=== PATIENT | male | born 1945 | race Caucasian/White ===

== ENCOUNTER → 2018-01-13 10:21 | Outpatient (CLI) | payer MEDICARE, SELFPAY ==
[2018-01-13 11:08] LABS: Add Manual Diff / Slide Review NO; Basophils Percent Auto 0.8 % (0-2); Eosinophils Percent Auto 3.3 % (2-4); Hematocrit 46.2 % (41-53); Hemoglobin 15.9 g/dL (13.5-17.5); Lymphocytes Percent Auto 20.5 % (25-40); Mean Corpuscular HGB Conc 34.4 % (30-36); Mean Corpuscular Hemoglobin 34.5 PG (26-34); Mean Corpuscular Volume 100.3 fL (80-100); Monocytes Percent Auto 8.8 % (3-14); Neutrophils Absolute Auto 5600 /uL (3000-5900); Neutrophils Percent Auto 66.6 % (50-75); Platelet Count 184 X10^3/uL (150-400); Red Blood Cell Count 4.61 X10^6/uL (4.5-5.9); Red Cell Distribution Width 14.5 % (11.6-14.8); White Blood Cell Count 8.5 X10^3/uL (4.5-11.0)
[2018-01-13 12:23] LABS: Alanine Aminotransferase 28 IU/L (21-72); Albumin 3.9 g/dL (3.5-5.0); Albumin Globulin Ratio 1.3 (1.0-2.8); Alkaline Phosphatase 105 U/L (38-126); Aspartate Aminotransferase 32 IU/L (17-59); Bilirubin Total 0.7 mg/dL (0.2-1.3); Blood Urea Nitrogen 15 mg/dL (9-20); Calcium 9.5 mg/dL (8.4-10.2); Carbon Dioxide 34 mmol/L (22-32); Chloride 95 mmol/L (98-107); Cholesterol 165 mg/dL (140-199); Estimated Glomerular Filt Rate > 60.0 mL/min (>60); Glucose 104 mg/dL (80-110); HDL Cholesterol 70 mg/dL (40-60); HEMOLYSIS < 15 (0-50); LDL Cholesterol Calculated 44 mg/dL (<100); Potassium 4.1 mmol/L (3.4-5.1); Sodium 139 mmol/L (137-145); Total Protein 6.9 g/dL (6.3-8.2); Triglycerides 256 mg/dL (35-150)
[2018-01-13 12:30] LABS: TSH w/ Reflex to FT4 2.72 uIU/mL (0.47-4.68)
== END ==
PROVIDERS: PCP Family Medicine; Visit Provider Family Medicine
DX: I48.91 Unspecified atrial fibrillation (principal); I25.10 Atherosclerotic heart disease of native coronary artery without angina pectoris; Z12.5 Encounter for screening for malignant neoplasm of prostate
CPT/HCPCS: 36415; 80053; 80061; 84443; 85025; G0103

== ENCOUNTER → 2018-11-21 09:16 | Outpatient (CLI) | payer MEDICARE, SELFPAY ==
[2018-11-21 10:08] LABS: Add Manual Diff / Slide Review NO; Basophils Absolute Auto 100 /uL (0-100); Basophils Percent Auto 1.2 % (0-2); Eosinophils Absolute Auto 100 /uL (0-450); Eosinophils Percent Auto 2.1 % (2-4); Hematocrit 42.6 % (41-53); Hemoglobin 14.4 g/dL (13.5-17.5); Lymphocytes Absolute Auto 1300 /uL (1100-4500); Lymphocytes Percent Auto 20.8 % (25-40); Mean Corpuscular HGB Conc 33.9 % (30-36); Mean Corpuscular Hemoglobin 34.8 PG (26-34); Mean Corpuscular Volume 102.6 fL (80-100); Monocytes Absolute Auto 600 /uL (0-900); Monocytes Percent Auto 9.6 % (3-14); Neutrophils Absolute Auto 4000 /uL (1500-7000); Neutrophils Percent Auto 66.3 % (50-75); Platelet Count 155 X10^3/uL (150-400); Red Blood Cell Count 4.15 X10^6/uL (4.5-5.9); Red Cell Distribution Width 14.4 % (11.6-14.8); White Blood Cell Count 6.1 X10^3/uL (4.5-11.0)
[2018-11-21 11:04] LABS: Alanine Aminotransferase 37 IU/L (21-72); Albumin Globulin Ratio 1.6 (1.0-2.8); Alkaline Phosphatase 98 U/L (38-126); Aspartate Aminotransferase 49 IU/L (17-59); Bilirubin Total 0.8 mg/dL (0.2-1.3); Blood Urea Nitrogen 12 mg/dL (9-20); Calcium 9.2 mg/dL (8.4-10.2); Carbon Dioxide 31 mmol/L (22-32); Chloride 96 mmol/L (98-107); Cholesterol 145 mg/dL (140-199); Estimated Glomerular Filt Rate > 60.0 mL/min (>60); Globulin 2.5 g/dL (1.7-4.1); Glucose 97 mg/dL (80-110); HDL Cholesterol 82 mg/dL (40-60); HEMOLYSIS < 15 (0-50); LDL Cholesterol Calculated 20 mg/dL (<100); Potassium 3.7 mmol/L (3.4-5.1); Sodium 137 mmol/L (137-145); Total Protein 6.5 g/dL (6.3-8.2); Triglycerides 216 mg/dL (35-150)
[2018-11-21 11:30] LABS: Thyroid Stimulating Hormone 2.78 uIU/mL (0.47-4.68)
[2018-11-21 11:38] LABS: Prostate Specific Antigen Scrn 0.306 ng/mL (0.1-4.0)
== END ==
PROVIDERS: PCP Family Medicine; Visit Provider Family Medicine
DX: E78.2 Mixed hyperlipidemia (principal); Z12.5 Encounter for screening for malignant neoplasm of prostate; R53.83 Other fatigue; I10 Essential (primary) hypertension
CPT/HCPCS: 36415; 80053; 80061; 84443; 85025; G0103

== ENCOUNTER → 2018-12-17 10:19 | Outpatient (CLI) | payer MEDICARE, SELFPAY ==
--- NOTE | 2018-12-17 10:21 | DI.RAD.S_ITS ---
PROCEDURE: XR CHEST 2V INDICATIONS: cough TECHNIQUE: 2 views of the chest were acquired. COMPARISON: [facility], CT, THORAX WITHOUT CONTRAST, 03/27/2017, 9:26. [facility], CR, CHEST 2 VIEW, 03/26/2017, 9:52. FINDINGS: Surgical changes and devices: There is a cardiac pacemaker in appropriate position. Lungs and pleura: Bibasilar opacities are most likely scars and atelectasis. No pleural effusions or pneumothorax. Mediastinum: Mediastinal contours are normal. Heart size is normal. Bones and chest wall: No suspicious bony abnormalities. Soft tissues appear unremarkable. IMPRESSION: Bibasilar opacities are most likely scars and atelectasis. Dictated by: Emily Castañeda M.D. on 12/17/2018 at 11:04 Approved by: Emily Castañeda M.D. on 12/17/2018 at 11:06
== END ==
PROVIDERS: PCP Family Medicine; Visit Provider Family Medicine
DX: R05 Cough (principal); Z95.0 Presence of cardiac pacemaker
CPT/HCPCS: 71046

== ENCOUNTER → 2019-04-14 16:32 | Outpatient (CLI) | payer MEDICARE, SELFPAY ==
[2019-04-14 17:07] LABS: Add Manual Diff / Slide Review NO; Basophils Absolute Auto 100 /uL (0-100); Basophils Percent Auto 1.1 % (0-2); Eosinophils Absolute Auto 100 /uL (0-450); Eosinophils Percent Auto 1.1 % (2-4); Hematocrit 47.7 % (41-53); Hemoglobin 15.9 g/dL (13.5-17.5); Lymphocytes Absolute Auto 2100 /uL (1100-4500); Lymphocytes Percent Auto 21.5 % (25-40); Mean Corpuscular HGB Conc 33.4 % (30-36); Mean Corpuscular Hemoglobin 34.7 PG (26-34); Mean Corpuscular Volume 103.9 fL (80-100); Monocytes Absolute Auto 1000 /uL (0-900); Monocytes Percent Auto 10.3 % (3-14); Neutrophils Absolute Auto 6300 /uL (1500-7000); Platelet Count 165 X10^3/uL (150-400); Red Blood Cell Count 4.59 X10^6/uL (4.5-5.9); Red Cell Distribution Width 14.9 % (11.6-14.8); White Blood Cell Count 9.6 X10^3/uL (4.5-11.0)
[2019-04-14 18:06] LABS: Alanine Aminotransferase 27 IU/L (21-72); Albumin Globulin Ratio 1.4 (1.0-2.8); Alkaline Phosphatase 103 U/L (38-126); Aspartate Aminotransferase 37 IU/L (17-59); BUN Creatinine Ratio 13.6 (6-22); Bilirubin Total 1.3 mg/dL (0.2-1.3); Blood Urea Nitrogen 15 mg/dL (9-20); Calcium 9.8 mg/dL (8.4-10.2); Carbon Dioxide 34 mmol/L (22-32); Chloride 93 mmol/L (98-107); Estimated Glomerular Filt Rate > 60.0 mL/min (>60); Globulin 2.9 g/dL (1.7-4.1); Glucose 110 mg/dL (80-110); HEMOLYSIS < 15 (0-50); Potassium 4.2 mmol/L (3.4-5.1); Sodium 136 mmol/L (137-145); Total Protein 6.9 g/dL (6.3-8.2)
== END ==
PROVIDERS: PCP Family Medicine; Visit Provider Nurse Practitioner Family
DX: R10.9 Unspecified abdominal pain (principal)
CPT/HCPCS: 36415; 80053; 85025

== ENCOUNTER → 2019-04-20 13:04 | Outpatient (CLI) | payer MEDICARE, SELFPAY ==
--- NOTE | 2019-04-20 13:07 | DI.US.S_ITS ---
PROCEDURE: US ABDOMEN COMPLETE INDICATIONS: LT FLANK PAIN, LOW ABD PAIN TECHNIQUE: Real-time scanning was performed of the abdominal and retroperitoneal organs, with image documentation. COMPARISON: CT thorax 03/27/2017. FINDINGS: Liver: Normal in size. Increased in echogenicity. Decreased sonographic penetration. Gallbladder: Nondistended. No gallbladder wall thickening. No sludge or stones seen. No pericolic cystic fluid. Negative sonographic Ramos's sign. Biliary ducts: Not well-seen. CBD measures 4 mm. Pancreas: Not well-seen. Spleen: Spleen is normal in size and homogeneous in echotexture. Measures 10.3 cm. Kidneys: Kidneys are normal in size and echotexture. Right kidney measures 11.6 cm long; left kidney measures 10.1 cm long. No hydronephrosis or nephrolithiasis. No solid masses. Simple cyst in the right kidney measuring 5.2 x 4.5 x 3.4 cm. Aorta: Visualized aorta is normal in caliber at less than 3 cm. proximal aorta is not well-seen. Iliacs: Proximal common iliac arteries are normal in caliber at less than 2.5 cm. IVC: Intrahepatic inferior vena cava is patent. Miscellaneous: No free abdominal fluid. No obvious mass in the left flank in the region of pain. IMPRESSION: 1. Hepatic steatosis. 2. No gallstones. 3. No hydronephrosis. 4. No abnormality in the region of pain is identified. Consider CT abdomen and pelvis with IV contrast for further evaluation if clinically indicated. Dictated by: Sagra Montoya M.D. on 04/20/2019 at 14:46 Approved by: Sagar Montoya M.D. on 04/20/2019 at 14:50
== END ==
PROVIDERS: PCP Family Medicine; Visit Provider Nurse Practitioner Family
DX: R10.30 Lower abdominal pain, unspecified (principal); N28.1 Cyst of kidney, acquired; K76.0 Fatty (change of) liver, not elsewhere classified
CPT/HCPCS: 76700

== ENCOUNTER → 2020-02-02 08:07 | Outpatient (CLI) | payer MEDICARE, OTHER, SELFPAY ==
[2020-02-02 09:05] LABS: Add Manual Diff / Slide Review NO; Basophils Absolute Auto 100 /uL (0-100); Basophils Percent Auto 0.9 % (0-2); Eosinophils Absolute Auto 100 /uL (0-450); Eosinophils Percent Auto 2.3 % (2-4); Hematocrit 43.2 % (41-53); Hemoglobin 14.6 g/dL (13.5-17.5); Lymphocytes Absolute Auto 1400 /uL (1100-4500); Lymphocytes Percent Auto 23.1 % (25-40); Mean Corpuscular HGB Conc 33.8 % (30-36); Mean Corpuscular Hemoglobin 34.9 PG (26-34); Mean Corpuscular Volume 103.3 fL (80-100); Monocytes Absolute Auto 600 /uL (0-900); Monocytes Percent Auto 10.7 % (3-14); Neutrophils Absolute Auto 3800 /uL (1500-7000); Platelet Count 146 X10^3/uL (150-400); Red Blood Cell Count 4.19 X10^6/uL (4.5-5.9); Red Cell Distribution Width 14.8 % (11.6-14.8)
[2020-02-02 09:23] LABS: Alanine Aminotransferase 30 IU/L (<50); Albumin Globulin Ratio 1.7 (1.0-2.8); Alkaline Phosphatase 114 U/L (38-126); Aspartate Aminotransferase 46 IU/L (17-59); BUN Creatinine Ratio 13.7 (6-22); Bilirubin Total 0.8 mg/dL (0.2-1.3); Blood Urea Nitrogen 14 mg/dL (9-20); Calcium 9.3 mg/dL (8.4-10.2); Carbon Dioxide 35 mmol/L (22-32); Chloride 98 mmol/L (98-107); Cholesterol 145 mg/dL (140-199); Estimated Glomerular Filt Rate > 60.0 mL/min (>60); Globulin 2.4 g/dL (1.7-4.1); Glucose 115 mg/dL (80-110); HDL Cholesterol 90 mg/dL (40-60); HEMOLYSIS < 15 (0-50); LDL Cholesterol Calculated 7 mg/dL (<100); Potassium 3.6 mmol/L (3.4-5.1); Sodium 136 mmol/L (137-145); Total Protein 6.4 g/dL (6.3-8.2); Triglycerides 242 mg/dL (35-150)
[2020-02-02 09:51] LABS: Prostate Specific Antigen Scrn 0.344 ng/mL (0.1-4.0)
[2020-02-02 09:52] LABS: Thyroid Stimulating Hormone 3.56 uIU/mL (0.47-4.68)
== END ==
PROVIDERS: PCP Family Medicine; Referring Provider Family Medicine; Visit Provider Family Medicine
DX: E78.2 Mixed hyperlipidemia (principal); I25.10 Atherosclerotic heart disease of native coronary artery without angina pectoris; I48.20 Chronic atrial fibrillation, unspecified; Z12.5 Encounter for screening for malignant neoplasm of prostate; Z13.29 Encounter for screening for other suspected endocrine disorder
CPT/HCPCS: 36415; 80053; 80061; 84443; 85025; G0103

== ENCOUNTER 2020-02-15 13:59 | Outpatient (RCR) | payer MEDICARE, OTHER, SELFPAY ==
--- NOTE | 2020-02-15 17:19 | PT.OIE ---
Current Diagnoses Other abnormalities of gait and mobility (02/15/20) Past Medical History (Last Updated 01/29/18 @ 12:27 by Rachel Hi) Atrial fibrillation (Chronic ~2011) Chicken pox (Resolved) Hearing loss (Chronic ~2014) Hypertension (Chronic ~1997) Measles (Resolved) Mumps (Resolved) Pacemaker (Chronic ~2011) Peripheral neuropathy (Chronic ~2011) Peripheral vascular disease (Chronic ~2011) Psoriasis (Chronic ~1989) Skin cancer (Chronic ~2012) Vision disorder (Chronic) Past Surgical History (Last Updated 01/29/18 @ 12:27 by Rachel Hi) Anesthesia (Resolved) History of heart artery stent (Resolved ~2014) Presence of cardiac pacemaker (~2011) Status post insertion of iliac artery stent (Resolved ~2012) Status post rotator cuff repair (~2012) Status post rotator cuff repair (~2013) Surgical procedure planned (Resolved ~2011) Surgical procedure planned (Resolved ~2013) Visit Care Team Role Provider Type Mario Patel MD Attending Provider Physician Primary Care Provider Referring Provider Specialty: [facility] Address: [address] [place] [address] Email: [email or web address] Physical Therapy Initial Evaluation PT-OP-A Visit Information Start: 02/15/20 16:42 Freq: Status: Active Protocol: Document 02/15/20 14:35 HH (Rec: 02/15/20 17:19 [email or web address]) Out-Patient Physical Therapy Visit Information Visit Information Visit Type Initial Evaluation Visit Note Pt will have watchman procedure for his A-fib on . Will follow up with his post op protocol Visit Start Time 14:35 Visit Stop Time 15:15 Total Visit Minutes 40 Visit Number 07/26 Number of METAL GRINDER Visits 0 Evaluation Information Evaluation Date 02/15/20 Precautions Precautions atrial fibrillation compromises stamina He has peripheral artery disease apparently has stent placed there he does have circulation problems PT-OP-B Current Condition Start: 02/15/20 16:42 Freq: Status: Active Protocol: Document 02/15/20 14:35 HH (Rec: 02/15/20 17:19 [email or web address]) Current Condition History of Current Condition Onset Date >10 years ago Current Complaints poor balance, poor activity tolerance History of Current Condition This is a 74yo male here for poor balance and activity tolerance primarily due to his long hx of peripheral artery disease and CAD. He has peripheral artery disease apparently has stent placed there to improve circulation in 2011. Pt reports he was told that both feet have lost 90-95% of sensation which significantly compromises his balance. Pt currently has fear of falling who is primarily relying on his vision to assist his balance. He only had 1 fall within the past year but he stated that he is not confident. Pt also has limited endurance who can only last 1/2 mile of walking with intermittent resting breaks. He likes to walk 1/3 of the [employer] 3 times a week and would like to be able to do more. Besides, he does have difficulty walking uneven surface and stair climbing. Pt does drink 3-4 times a day and 1 cup of coffee. Future Testing and Treatments Planned Pt will have watchman procedure for his A-fib on . Treatment Goals Patient/Caregiver Goals 1. to improve his overall balance 2. to be able to walk a mile Personal Factors Other Personal Factors That May Effect He apparently diagnosed Therapy/Recovery sarcoidosis does not seem to be affecting anyway saw pulmonology specialist in [place] he is on no treatment and apparently it is getting better as oxygen content appeared has improved to normal. chronic peripheral neuropathy and CAD PT-OP-C Subjective Start: 02/15/20 16:42 Freq: Status: Active Protocol: Document 02/15/20 14:35 HH (Rec: 02/15/20 17:19 [email or web address]) Patient Questionnaires ABC- Activity Specific Balance Confidence Scale ABC Score 81.875 ABC Functional Impairment 1 to <20% Impaired (Score 81- 99) Dizziness Handicap Inventory DHI Score 27 DHI Functional Impairment 20 to 39% Impaired (Score 20- 39) PT-OP-D Balance Start: 02/15/20 16:42 Freq: Status: Active Protocol: Document 02/15/20 14:35 HH (Rec: 02/15/20 17:19 [email or web address]) Balance Tests Webster Balance Test Webster Balance Test Score 43 Webster Impairment Rating 20 to 39% Impaired (Score 34- 44) PT-OP-E Functional Tests Start: 02/15/20 16:42 Freq: Status: Active Protocol: Document 02/15/20 14:35 HH (Rec: 02/15/20 17:19 [email or web address]) Functional Tests Dynamic Gait Index (DGI) Score 19 DGI Impairment Rating 20 to <40% Impaired (Score 15- 19) PT-OP-F Manual Assessment Start: 02/15/20 16:42 Freq: Status: Active Protocol: Document 02/15/20 14:35 HH (Rec: 02/15/20 17:19 [email or web address]) Manual Assessments Soft Tissue Assessment Soft Tissue Mobility Assessment reports of muscle pain while PT squeezing R calf. PT-OP-G Mobility & Gait Start: 02/15/20 16:42 Freq: Status: Active Protocol: Document 02/15/20 14:35 HH (Rec: 02/15/20 17:19 [email or web address]) OP Gait Assessment Gait Deviations General Gait Pattern Decreased Stride Length, Decreased Feet Clearance, Flexed Trunk,Wide Based Gait Comments Gait Comments pt constantly looks down to the floor during gait. Stair Climbing Evaluation Devices Stair Climbing Assistive Devices Left Railing,Right Railing Technique/Endurance Stair Climbing Direction Ascend and Descend Stair Climbing Technique Step Over Step PT-OP-H Neuro Start: 02/15/20 16:42 Freq: Status: Active Protocol: Document 02/15/20 14:35 HH (Rec: 02/15/20 17:19 [email or web address]) Sensation Evaluation Gross Sensation Gross Sensation Left UE Impaired,Right UE Impaired Sensation Description Numbness,Pins & [place] Location Details Right Foot Light Touch Absent Sharp/Dull Absent Deep Pressure Impaired Proprioception (Position) Intact/Normal Kinesthesia (Movement) Intact/Normal Left Foot Light Touch Absent Sharp/Dull Absent Deep Pressure Impaired Proprioception (Position) Intact/Normal Kinesthesia (Movement) Intact/Normal Comments Summary Comments pt has minimal to none sensation to LT and sharp/dull below his ankle joint line proprioception appears to be intact/ minimally affected bilaterally Deep Tendon Reflex & Clonus Assessment Deep Tendon Reflex Bilateral Achilles Deep Tendon Reflex 2+ Normal Bilateral Patellar Deep Tendon Reflex 1+ Diminished PT-OP-M Strength Start: 02/15/20 16:42 Freq: Status: Active Protocol: Document 02/15/20 14:35 HH (Rec: 02/15/20 17:19 [email or web address]) Hip Strength Hip Manual Muscle Testing Right Flexion (L2) 4+ Good+ Extension (S1) 4+ Good+ Abduction 4+ Good+ Adduction 4+ Good+ Left Flexion (L2) 4+ Good+ Extension (S1) 4+ Good+ Abduction 4+ Good+ Adduction 4+ Good+ Knee Strength Knee Manual Muscle Testing Left Flexion (S2) 4 Good Extension (L3) 4 Good Right Flexion (S2) 4 Good Extension (L3) 4 Good Ankle/Foot Strength Ankle and Foot Manual Muscle Testing Right Dorsiflexion (L4) 4- Good- Plantarflexion (S1) 4- Good- Left Dorsiflexion (L4) 4- Good- Plantarflexion (S1) 4- Good- PT-OP-T Assessment and Plan Start: 02/15/20 16:42 Freq: Status: Active Protocol: Document 02/15/20 14:35 (Rec: 02/15/20 17:19 [email or web address]) Physical Therapy Assessment Rehab Potential Rehabilitation Potential Good Evaluation Complexity Number of Personal Factors/Comorbidities 3 or More Number of Body Systems Impaired 4 or More Clinical Presentation at Evaluation Stable Impairments Impairments Activity Tolerance,Balance, Functional Activities, Functional Mobility,Gait,Pain, Sensation,Soft Tissue Mobility ,Strength Other Concerns Fall Risk yes Barriers to Rehabilitation managed sarcoidosis . chronic peripheral neuropathy and CAD upcoming watchmen procedure current alcohol user (3-4 drinks a day) Goals SLS Impairment pt cannot perform SLS Short Term Goal (STG) pt will be able to reach 3 seconds or longer for SLS to improve his unilateral leg strength and balance for stair climbing and walking on uneven surface ground STG Duration 5 weeks Retirement Goal (LTG) pt will be able to reach 5 seconds or longer for SLS to improve his unilateral leg strength and balance for stair climbing and walking on uneven surface ground LTG Duration 10 weeks activity tolerance Impairment unable to yury 1/2 mile without rest break Short Term Goal (STG) pt will be able to tolerate 0. 75 mile with small intermittent breaks to improve his community ambulation endurance. STG Duration 5 weeks Retirement Goal (LTG) pt will be able to tolerate 1 mile with small intermittent breaks to improve his community ambulation endurance . LTG Duration 10 weeks WEBSTER Impairment pt scores 43/56 for WEBSTER Retirement Goal (LTG) Pt will score 50 or above for WEBSTER to improve his overall balance for functional activities. LTG Duration 10 weeks Assessment Summary Assessment This is a moderate complexity evaluation for this 74yo male here for balance and endurance training. Pt has complicated hx of CAD and PAD who has had stent placed for both dx. Upon assessment, pt has significant sensation loss to LT, sharp/ dull to both feet but proprioception remain mostly intact. Through WEBSTER and DGI assessment, this PT noticed pt has difficulty in balance primarily on narrow STEFFEN, obstacle negotiation and single leg balance who heavily relies on vision to navigate himself. Pt also has poor endurance as he stated so this pt will definitely benefit from skilled therapy to address these aforementioned impairments to improve his confidence of balance, B LE strength, and overall activity tolerance. Pt is going to have watchman procedure on who might have a post op protocol for PT which possibly require a longer POC. Physical Therapy Plan Frequency and Duration Frequency of Treatment 2x/Week Duration of Treatment 10 weeks Plan of Care Start Date 02/15/20 Plan of Care End Date 04/30/20 Therapeutic Interventions Therapeutic Interventions Balance Training,Gait Training ,Home Exercise Program,Joint Mobilizations,Manual Therapy, Neuromuscular Re-education, Patient/Caregiver Education, Self-Care/Home Management, Sensory Integration,Soft Tissue Mobilization,Taping, Therapeutic Activities, Therapeutic Exercises Modalities Cold Pack/Ice Massage,Electric Stimulation,Hot Packs, Infrared Therapy,Ultrasound Next Visit Focus/Plan Next Note Type Treatment Note Next Visit Plan assess 6MWT practice ankle strategy NBOS EO/EC balance board calf raises, ankle board step over obstacle
--- NOTE | 2020-02-15 17:20 | PT.OPPOC ---
Physical, Occupational & Speech Therapy At [facility] Current Diagnoses Other abnormalities of gait and mobility (02/15/20) Visit Care Team Role Provider Type Mario Patel MD Attending Provider Physician Primary Care Provider Referring Provider Specialty: Family Practice Address: [address] [place] [address], [id number] Email: [email or web address] Plan Of Care PT-OP-T Assessment and Plan Start: 02/15/20 16:42 Freq: Status: Active Protocol: Document 02/15/20 14:35 HH (Rec: 02/15/20 17:19 HH [email or web address]) Physical Therapy Assessment Rehab Potential Rehabilitation Potential Good Evaluation Complexity Number of Personal Factors/Comorbidities 3 or More Number of Body Systems Impaired 4 or More Clinical Presentation at Evaluation Stable Impairments Impairments Activity Tolerance,Balance, Functional Activities, Functional Mobility,Gait,Pain, Sensation,Soft Tissue Mobility ,Strength Other Concerns Fall Risk yes Barriers to Rehabilitation managed sarcoidosis . chronic peripheral neuropathy and CAD upcoming watchmen procedure current alcohol user (3-4 drinks a day) Goals SLS Impairment pt cannot perform SLS Short Term Goal (STG) pt will be able to reach 3 seconds or longer for SLS to improve his unilateral leg strength and balance for stair climbing and walking on uneven surface ground STG Duration 5 weeks Steam Shovel Operator Goal (LTG) pt will be able to reach 5 seconds or longer for SLS to improve his unilateral leg strength and balance for stair climbing and walking on uneven surface ground LTG Duration 10 weeks activity tolerance Impairment unable to yury 1/2 mile without rest break Short Term Goal (STG) pt will be able to tolerate 0. 75 mile with small intermittent breaks to improve his community ambulation endurance. STG Duration 5 weeks Group Home Goal (LTG) pt will be able to tolerate 1 mile with small intermittent breaks to improve his community ambulation endurance . LTG Duration 10 weeks WEBSTER Impairment pt scores 43/56 for WEBSTER Group Home Goal (LTG) Pt will score 50 or above for WEBSTER to improve his overall balance for functional activities. LTG Duration 10 weeks Assessment Summary Assessment This is a moderate complexity evaluation for this 74yo male here for balance and endurance training. Pt has complicated hx of CAD and PAD who has had stent placed for both dx. Upon assessment, pt has significant sensation loss to LT, sharp/ dull to both feet but proprioception remain mostly intact. Through WEBSTER and DGI assessment, this PT noticed pt has difficulty in balance primarily on narrow STEFFEN, obstacle negotiation and single leg balance who heavily relies on vision to navigate himself. Pt also has poor endurance as he stated so this pt will definitely benefit from skilled therapy to address these aforementioned impairments to improve his confidence of balance, B LE strength, and overall activity tolerance. Pt is going to have watchman procedure on who might have a post op protocol for PT which possibly require a longer POC. Physical Therapy Plan Frequency and Duration Frequency of Treatment 2x/Week Duration of Treatment 10 weeks Plan of Care Start Date 02/15/20 Plan of Care End Date 04/30/20 Therapeutic Interventions Therapeutic Interventions Balance Training,Gait Training ,Home Exercise Program,Joint Mobilizations,Manual Therapy, Neuromuscular Re-education, Patient/Caregiver Education, Self-Care/Home Management, Sensory Integration,Soft Tissue Mobilization,Taping, Therapeutic Activities, Therapeutic Exercises Modalities Cold Pack/Ice Massage,Electric Stimulation,Hot Packs, Infrared Therapy,Ultrasound Next Visit Focus/Plan Next Note Type Treatment Note Next Visit Plan assess 6MWT practice ankle strategy NBOS EO/EC balance board calf raises, ankle board step over obstacle Plan of Care Dates Plan of Care Start Date 02/15/20 Plan of Care End Date 04/30/20 Electronically Signed by: Maria De Jesus Jean Baptiste PT 02/15/20 1924 Please Sign and Return: I have reviewed this Plan of Care and certify that the skilled therapy services above are required to meet the patient?s needs. Physician Signature Date Printed Name and Credentials Clinical Instructor Signature Printed Name and Credentials
--- NOTE | 2020-07-11 16:30 | PT.OPDS ---
Current Diagnoses Other abnormalities of gait and mobility (02/15/20) Visit Care Team Role Provider Type Mario Patel MD Attending Provider Physician Primary Care Provider Referring Provider Specialty: Family Practice Address: [address] [place] [address], [id number] Email: [email or web address] Visit Number Visit Number 07/[id number] Discharge Summary PT-OP-B Current Condition Start: 02/15/20 16:42 Freq: Status: Active Protocol: Document 02/15/20 14:35 HH (Rec: 02/15/20 17:19 HH [email or web address]) Current Condition History of Current Condition Onset Date >10 years ago Current Complaints poor balance, poor activity tolerance History of Current Condition This is a 74yo male here for poor balance and activity tolerance primarily due to his long hx of peripheral artery disease and CAD. He has peripheral artery disease apparently has stent placed there to improve circulation in 2011. Pt reports he was told that both feet have lost 90-95% of sensation which significantly compromises his balance. Pt currently has fear of falling who is primarily relying on his vision to assist his balance. He only had 1 fall within the past year but he stated that he is not confident. Pt also has limited endurance who can only last 1/2 mile of walking with intermittent resting breaks. He likes to walk 1/3 [place] 3 times a week and would like to be able to do more. Besides, he does have difficulty walking uneven surface and stair climbing. Pt does drink 3-4 times a day and 1 cup of coffee. Future Testing and Treatments Planned Pt will have watchman procedure for his A-fib on . Treatment Goals Patient/Caregiver Goals 1. to improve his overall balance 2. to be able to walk a mile Personal Factors Other Personal Factors That May Effect He apparently diagnosed Therapy/Recovery sarcoidosis does not seem to be affecting anyway saw pulmonology specialist in [place] he is on no treatment and apparently it is getting better as oxygen content appeared has improved to normal. chronic peripheral neuropathy and CAD PT-OP-C Subjective Start: 02/15/20 16:42 Freq: Status: Active Protocol: Document 02/15/20 14:35 HH (Rec: 02/15/20 17:19 HH [email or web address]) Patient Questionnaires ABC- Activity Specific Balance Confidence Scale ABC Score 81.875 ABC Functional Impairment 1 to <20% Impaired (Score 81- 99) Dizziness Handicap Inventory DHI Score 27 DHI Functional Impairment 20 to 39% Impaired (Score 20- 39) PT-OP-D Balance Start: 02/15/20 16:42 Freq: Status: Active Protocol: Document 02/15/20 14:35 (Rec: 02/15/20 17:19 [email or web address]) Balance Tests Saavedra Balance Test Saavedra Balance Test Score 43 Saavedra Impairment Rating 20 to 39% Impaired (Score 34- 44) PT-OP-E Functional Tests Start: 02/15/20 16:42 Freq: Status: Active Protocol: Document 02/15/20 14:35 (Rec: 02/15/20 17:19 [email or web address]) Functional Tests Dynamic Gait Index (DGI) Score 19 DGI Impairment Rating 20 to <40% Impaired (Score 15- 19) PT-OP-F Manual Assessment Start: 02/15/20 16:42 Freq: Status: Active Protocol: Document 02/15/20 14:35 (Rec: 02/15/20 17:19 [email or web address]) Manual Assessments Soft Tissue Assessment Soft Tissue Mobility Assessment reports of muscle pain while PT squeezing R calf. PT-OP-G Mobility & Gait Start: 02/15/20 16:42 Freq: Status: Active Protocol: Document 02/15/20 14:35 (Rec: 02/15/20 17:19 [email or web address]) OP Gait Assessment Gait Deviations General Gait Pattern Decreased Stride Length, Decreased Feet Clearance, Flexed Trunk,Wide Based Gait Comments Gait Comments pt constantly looks down to the floor during gait. Stair Climbing Evaluation Devices Stair Climbing Assistive Devices Left Railing,Right Railing Technique/Endurance Stair Climbing Direction Ascend and Descend Stair Climbing Technique Step Over Step PT-OP-H Neuro Start: 02/15/20 16:42 Freq: Status: Active Protocol: Document 02/15/20 14:35 (Rec: 02/15/20 17:19 [email or web address]) Sensation Evaluation Gross Sensation Gross Sensation Left UE Impaired,Right UE Impaired Sensation Description Numbness,Pins & Rhodes Location Details Right Foot Light Touch Absent Sharp/Dull Absent Deep Pressure Impaired Proprioception (Position) Intact/Normal Kinesthesia (Movement) Intact/Normal Left Foot Light Touch Absent Sharp/Dull Absent Deep Pressure Impaired Proprioception (Position) Intact/Normal Kinesthesia (Movement) Intact/Normal Comments Summary Comments pt has minimal to none sensation to LT and sharp/dull below his ankle joint line proprioception appears to be intact/ minimally affected bilaterally Deep Tendon Reflex & Clonus Assessment Deep Tendon Reflex Bilateral Achilles Deep Tendon Reflex 2+ Normal Bilateral Patellar Deep Tendon Reflex 1+ Diminished PT-OP-M Strength Start: 02/15/20 16:42 Freq: Status: Active Protocol: Document 02/15/20 14:35 HH (Rec: 02/15/20 17:19 HH [email or web address]) Hip Strength Hip Manual Muscle Testing Right Flexion (L2) 4+ Good+ Extension (S1) 4+ Good+ Abduction 4+ Good+ Adduction 4+ Good+ Left Flexion (L2) 4+ Good+ Extension (S1) 4+ Good+ Abduction 4+ Good+ Adduction 4+ Good+ Knee Strength Knee Manual Muscle Testing Left Flexion (S2) 4 Good Extension (L3) 4 Good Right Flexion (S2) 4 Good Extension (L3) 4 Good Ankle/Foot Strength Ankle and Foot Manual Muscle Testing Right Dorsiflexion (L4) 4- Good- Plantarflexion (S1) 4- Good- Left Dorsiflexion (L4) 4- Good- Plantarflexion (S1) 4- Good- PT-OP-T Assessment and Plan Start: 02/15/20 16:42 Freq: Status: Active Protocol: Document 07/11/20 16:30 HH (Rec: 07/11/20 16:30 HH [email or web address]) Physical Therapy Plan Discharge Physical Therapy Discharge Reasons Patient Request Discharge Comments Pt cancelled all his appt after IE d/t medical reason. DC from PT today
== END 2020-07-15 12:20 | disposition home or self-care (01) ==
LOC: PHYS 13:59
PROVIDERS: PCP Family Medicine; Referring Provider Family Medicine; Visit Provider Family Medicine
DX: R26.89 Other abnormalities of gait and mobility (principal)
CPT/HCPCS: 97162

== ENCOUNTER → 2020-02-19 08:31 | Outpatient (CLI) | payer MEDICARE, OTHER, SELFPAY ==
[2020-02-19 09:22] LABS: Prothrombin Time 52.5 SECONDS (10.1-12.7)
[2020-02-19 09:27] LABS: INR 4.6 (0.9-1.3)
== END ==
PROVIDERS: PCP Family Medicine; Referring Provider Specialist; Visit Provider Specialist
DX: I48.91 Unspecified atrial fibrillation (principal)
CPT/HCPCS: 36415; 85610

== ENCOUNTER → 2020-02-25 13:36 | Outpatient (CLI) | payer MEDICARE, OTHER, SELFPAY ==
--- NOTE | 2020-02-25 | DI.ECHO.S_ITS ---
[facility]---------+ [facility] +---------+ : : [address] [place] : : : : [id number] : : : : Phone: [phone]+ Echocardiogram Report + + :Name: ROBERTA BROWN Study Date: 02/25/2020 Height: 70 in : :[facility] Weight: 214 lb : : Gender: Male BSA: 2.1 m2 : :: 1945 Age: 75 yrs BP: 122/81 mmHg: :Reason For Study: AORTIC VALVE DISEASE : :Ordering Physician: Falguni : :Rodrigo Cole Performed By: Sheila Figueroa : :Referring: FALGUNI BINGHAM : + + Interpretation Summary The study quality was technically difficult. The left ventricular ejection fraction is normal. There are no obvious focal wall motion abnormalities noted but poor endocardial definition reduces the sensitivity for the detection of such. The peak aortic velocity is 1.8 m/sec. There is no hemodynamically significant valvular aortic stenosis. Overall no significant change compared to the prior echocardiogram. Procedure: A two-dimensional transthoracic echocardiogram with color flow and Doppler was performed. The study quality was technically difficult. Comparison is made with the echocardiogram of 01/04/2015. The patient was in atrial fibrillation with heart rates between 96-134 bpm during the exam. Left Ventricle: The left ventricle is normal in size. Left ventricular wall thickness is mildly increased. The ejection fraction is estimated to be 55- 60%. The left ventricular ejection fraction is normal. There are no obvious focal wall motion abnormalities noted but poor endocardial definition reduces the sensitivity for the detection of such. Diastolic function could not be accurately assessed due to atrial fibrillation. Right Ventricle: There is a pacemaker lead in the right ventricle. The right ventricle is normal in size and function. Atria: The left atrium is mildly dilated. There is a catheter/pacemaker lead seen in the right atrium. Right atrial size is normal. There is no Doppler evidence for an interatrial shunt. Mitral Valve: The mitral valve leaflets are mildly calcified. There is trace mitral regurgitation. Aortic Valve: The aortic valve is trileaflet. There is mild aortic valve sclerosis. There is mildly reduced leaflet mobility. The aortic valve is mildly calcified. The peak aortic velocity is 1.8 m/sec. There has been no significant change since the previous study. There is no hemodynamically significant valvular aortic stenosis. No aortic regurgitation is present. Tricuspid Valve: The tricuspid valve is not well visualized, but is grossly normal. Pulmonary artery pressures cannot be estimated because of the lack of a measurable TR jet velocity but the IVC suggests a CVP of around 15 mmHg. There is a trace or physiologic amount of tricuspid regurgitation. Pulmonic Valve: The pulmonic valve is not well visualized. There is no pulmonic valvular regurgitation. Great Vessels: The aortic root is normal size. The ascending aorta is mildly enlarged. The IVC is dilated (diameter is greater than 2.1 cm) and it collapses less than 50% with a sniff. This suggests a high right atrial pressure of 15 mm Hg. Pericardium/ Pleura There is no pericardial effusion. There is no pleural effusion. MMode/2D Measurements & Calculations LVIDd: 4.8 cm LVOT diam: 2.4 cm EPSS: 1.1 cm Ao root diam: 3.5 cm IVSd: 1.2 cm asc Aorta Diam: 4.0 cm LVPWd: 1.1 cm Ao Arch Diam (Prox Trans): 3.1 cm LV campuzano. diameter/BSA (cm/m^2): 2.3 LA A2 area: 27.8 cm2 RA long axis: 6.1 cm LA A4 area: 24.1 cm2 RA area: 19.8 cm2 LA length (vol): 6.3 cm RA vol: 55.2 ml LA vol: 90.1 ml RA : 25.7 ml/m2 LA vol index: 41.9 ml/m2 IVC diam: 2.5 cm RVD1 (basal): 3.4 cm TAPSE: 2.2 cm Doppler Measurements & Calculations Ao V2 max: 179.5 cm/sec LVOT Max Faisal: 77.2 cm/sec Ao V2 mean: 121.8 cm/sec LV V1 max P.4 mmHg Ao max P.9 mmHg LV V1 VTI: 14.5 cm Ao mean P.8 mmHg JAZZY(I,D): 1.9 cm2 Ao V2 VTI: 32.8 cm JAZZY(V,D): 1.9 cm2 sev ratio: 0.44 JAZZY indexed to BSA (cm^2/m^2): 0.89 MV E max faisal: 109.4 cm/sec PA V2 max: 55.2 cm/sec MV A max faisal: 1.1 cm/sec PA V2 mean: 41.0 cm/sec MV E/A: 100.1 PA mean P.73 mmHg Med Peak E' Faisal: 9.1 cm/sec PA pr(Accel): 50.7 mmHg E/E' med: 12.0 Lat Peak E' Faisal: 12.2 cm/sec E/E' lat: 9.0 E/e' average: 10.5 MV dec time: 0.16 sec SV(LVOT): 62.9 ml Electronically signed by: Falguni Bingham M.D. on Reading Physician:02/26/2020 02:30 PM
== END ==
PROVIDERS: PCP Family Medicine; Referring Provider Hospitalist; Visit Provider Hospitalist
DX: I35.8 Other nonrheumatic aortic valve disorders (principal); Z95.0 Presence of cardiac pacemaker; I77.89 Other specified disorders of arteries and arterioles
CPT/HCPCS: 93306

== ENCOUNTER → 2020-02-26 10:28 | Outpatient (CLI) | payer MEDICARE, OTHER, SELFPAY ==
[2020-02-26 13:07] LABS: INR 2.8 (0.9-1.3); Prothrombin Time 31.7 SECONDS (10.1-12.7)
== END ==
PROVIDERS: PCP Family Medicine; Referring Provider Specialist; Visit Provider Specialist
DX: I48.91 Unspecified atrial fibrillation (principal)
CPT/HCPCS: 36415; 85610

== ENCOUNTER → 2020-03-04 10:21 | Outpatient (CLI) | payer MEDICARE, OTHER, SELFPAY ==
[2020-03-04 10:48] LABS: INR 1.6 (0.9-1.3); Prothrombin Time 18.3 SECONDS (10.1-12.7)
== END ==
PROVIDERS: PCP Family Medicine; Referring Provider Specialist; Visit Provider Specialist
DX: I48.91 Unspecified atrial fibrillation (principal)
CPT/HCPCS: 36415; 85610

== ENCOUNTER → 2020-03-08 10:26 | Outpatient (CLI) | payer MEDICARE, OTHER, SELFPAY ==
[2020-03-08 11:01] LABS: Prothrombin Time 59.2 SECONDS (10.1-12.7)
[2020-03-08 11:02] LABS: INR 5.3 (0.9-1.3)
== END ==
PROVIDERS: PCP Family Medicine; Referring Provider Specialist; Visit Provider Specialist
DX: I48.91 Unspecified atrial fibrillation (principal)
CPT/HCPCS: 36415; 85610

== ENCOUNTER → 2020-03-11 10:13 | Outpatient (CLI) | payer MEDICARE, OTHER, SELFPAY ==
[2020-03-11 10:42] LABS: INR 2.6 (0.9-1.3)
== END ==
PROVIDERS: PCP Family Medicine; Referring Provider Specialist; Visit Provider Specialist
DX: I48.91 Unspecified atrial fibrillation (principal)
CPT/HCPCS: 36415; 85610

== ENCOUNTER → 2020-03-15 10:16 | Outpatient (CLI) | payer MEDICARE, OTHER, SELFPAY ==
[2020-03-15 11:35] LABS: INR 1.2 (0.9-1.3); Prothrombin Time 14.2 SECONDS (10.1-12.7)
== END ==
PROVIDERS: PCP Family Medicine; Referring Provider Specialist; Visit Provider Specialist
DX: I48.91 Unspecified atrial fibrillation (principal)
CPT/HCPCS: 36415; 85610

== ENCOUNTER → 2020-03-18 09:55 | Outpatient (CLI) | payer MEDICARE, OTHER, SELFPAY ==
[2020-03-18 10:17] LABS: INR 1.3 (0.9-1.3); Prothrombin Time 15.1 SECONDS (10.1-12.7)
== END ==
PROVIDERS: PCP Family Medicine; Referring Provider Specialist; Visit Provider Specialist
DX: I48.91 Unspecified atrial fibrillation (principal)
CPT/HCPCS: 36415; 85610

== ENCOUNTER → 2020-03-22 10:26 | Outpatient (CLI) | payer MEDICARE, OTHER, SELFPAY ==
[2020-03-22 11:04] LABS: INR 2.1 (0.9-1.3); Prothrombin Time 24.2 SECONDS (10.1-12.7)
== END ==
PROVIDERS: PCP Family Medicine; Referring Provider Specialist; Visit Provider Specialist
DX: I48.91 Unspecified atrial fibrillation (principal)
CPT/HCPCS: 36415; 85610

== ENCOUNTER → 2020-03-25 09:50 | Outpatient (CLI) | payer MEDICARE, OTHER, SELFPAY ==
[2020-03-25 10:18] LABS: INR 2.5 (0.9-1.3); Prothrombin Time 28.9 SECONDS (10.1-12.7)
== END ==
PROVIDERS: PCP Family Medicine; Referring Provider Specialist; Visit Provider Specialist
DX: I48.91 Unspecified atrial fibrillation (principal)
CPT/HCPCS: 36415; 85610

== ENCOUNTER → 2020-04-01 10:29 | Outpatient (CLI) | payer MEDICARE, OTHER, SELFPAY ==
[2020-04-01 10:59] LABS: INR 3.7 (0.9-1.3); Prothrombin Time 41.8 SECONDS (10.1-12.7)
== END ==
PROVIDERS: PCP Family Medicine; Referring Provider Specialist; Visit Provider Specialist
DX: I48.91 Unspecified atrial fibrillation (principal)
CPT/HCPCS: 36415; 85610

== ENCOUNTER → 2020-04-08 10:16 | Outpatient (CLI) | payer MEDICARE, OTHER, SELFPAY ==
[2020-04-08 12:26] LABS: INR 1.7 (0.9-1.3); Prothrombin Time 19.1 SECONDS (10.1-12.7)
== END ==
PROVIDERS: PCP Family Medicine; Referring Provider Specialist; Visit Provider Specialist
DX: I48.91 Unspecified atrial fibrillation (principal)
CPT/HCPCS: 36415; 85610

== ENCOUNTER → 2020-04-12 10:29 | Outpatient (CLI) | payer MEDICARE, OTHER, SELFPAY ==
[2020-04-12 12:35] LABS: INR 1.7 (0.9-1.3)
== END ==
PROVIDERS: PCP Family Medicine; Referring Provider Specialist; Visit Provider Specialist
DX: I48.91 Unspecified atrial fibrillation (principal)
CPT/HCPCS: 36415; 85610

== ENCOUNTER → 2020-04-21 10:39 | Outpatient (CLI) | payer MEDICARE, OTHER, SELFPAY | PROVIDERS: PCP Family Medicine; Referring Provider Family Medicine; Visit Provider Internal Medicine Cardiovascular Disease | DX: I48.21 Permanent atrial fibrillation (principal) | CPT/HCPCS: 36415; 87040 ==

== ENCOUNTER → 2020-12-15 08:28 | Outpatient (CLI) | payer MEDICARE, OTHER, SELFPAY ==
[2020-12-15 10:25] LABS: Alanine Aminotransferase 27 IU/L (<50); Albumin 3.8 g/dL (3.5-5.0); Albumin Globulin Ratio 1.4 (1.0-2.8); Alkaline Phosphatase 114 U/L (38-126); Aspartate Aminotransferase 43 IU/L (17-59); BUN Creatinine Ratio 10.1 (6-22); Bilirubin Total 1.3 mg/dL (0.2-1.3); Blood Urea Nitrogen 11 mg/dL (9-20); Calcium 9.2 mg/dL (8.4-10.2); Carbon Dioxide 31 mmol/L (22-32); Chloride 96 mmol/L (98-107); Cholesterol 143 mg/dL (140-199); Estimated Glomerular Filt Rate > 60.0 mL/min (>60); Globulin 2.7 g/dL (1.7-4.1); Glucose 132 mg/dL (80-110); HDL Cholesterol 72 mg/dL (40-60); HEMOLYSIS < 15 (0-50); LDL Cholesterol Calculated 26 mg/dL (<100); Potassium 3.3 mmol/L (3.4-5.1); Sodium 136 mmol/L (137-145); Total Protein 6.5 g/dL (6.3-8.2); Triglycerides 225 mg/dL (35-150)
== END ==
PROVIDERS: PCP Internal Medicine; Referring Provider Internal Medicine; Visit Provider Internal Medicine
DX: E78.2 Mixed hyperlipidemia (principal); G62.9 Polyneuropathy, unspecified; I10 Essential (primary) hypertension; I25.10 Atherosclerotic heart disease of native coronary artery without angina pectoris; I48.20 Chronic atrial fibrillation, unspecified
CPT/HCPCS: 36415; 80053; 80061; G0103

== ENCOUNTER → 2021-01-16 14:43 | Outpatient (CLI) | payer MEDICARE, OTHER, SELFPAY ==
--- NOTE | 2021-01-16 14:45 | DI.ECHO.S_ITS ---
[facility] +---------+ [facility] +---------+ : : [address] [place] : : : : [id number] : : : : Phone: [phone]---------+ Echocardiogram Report + + :Name: ROBERTA BROWN Study Date: 01/16/2021 Height: 71 in : :[facility] ReadingLocation: Weight: 205 lb : : Gender: Male BSA: 2.1 m2 : :: 1945 Age: 75 yrs BP: 110/83 mmHg: :Reason For Study: ATHEROSCLEROTIC HEART DISEASE : :Ordering Physician: : :CIARAN DENTON Performed By: Sheila Figueroa : :Referring: CIARAN DENTON : + + Interpretation Summary The study quality was technically difficult. The patient was in atrial fibrillation with heart rates between 88-118 bpm during the exam. The left ventricle is grossly normal size.The ejection fraction is estimated to be 55-60%. No significant change from the previous study. The right ventricle is mildly dilated. The right ventricular systolic function is normal. There is a pacemaker lead in the right ventricle. There is mild mitral regurgitation. The aortic valve is not well visualized. The aortic valve is moderately calcified. There is moderately reduced leaflet mobility. The peak aortic velocity is 1.88 m/sec. The aortic valve mean gradient is 9 mmHg. The peak aortic velocity on the previous exam was 1.8 m/sec. There is no hemodynamically significant valvular aortic stenosis. Procedure: A two-dimensional transthoracic echocardiogram with color flow and Doppler was performed. The study quality was technically difficult. Comparison is made with the echocardiogram of 02/25/2020. The patient was in atrial fibrillation with heart rates between 88-118 bpm during the exam. Left Ventricle: The estimated left ventricular end diastolic volume is 47 ml. The left ventricle is grossly normal size. Proximal septal thickening is noted. There is no echo evidence for significant left ventricular outflow tract obstruction. The ejection fraction is estimated to be 55-60%. There has been no significant change since the previous exam. There are no obvious focal wall motion abnormalities noted but poor endocardial definition reduces the sensitivity for the detection of such. Diastolic function could not be accurately assessed due to atrial fibrillation. Right Ventricle: There is a pacemaker lead in the right ventricle. The right ventricle is mildly dilated. The right ventricular systolic function is normal. Atria: The left atrium is severely dilated. The left atrium has significantly increased in size since the prior echo exam. Right atrial size is normal. There is no Doppler evidence for an interatrial shunt. Mitral Valve: There is mild to moderate mitral annular calcification. The mitral valve leaflets are mildly calcified. No significant mitral valve stenosis. There is mild mitral regurgitation. Aortic Valve: The aortic valve is moderately calcified. The aortic valve is not well visualized. There is moderately reduced leaflet mobility. The peak aortic velocity is 1.88 m/sec. The aortic valve mean gradient is 9 mmHg. The peak aortic velocity on the previous exam was 1.8 m/sec. There is no hemodynamically significant valvular aortic stenosis. No aortic regurgitation is present. Tricuspid Valve: The tricuspid valve is not well visualized, but is grossly normal. There is mild tricuspid regurgitation. Pulmonary artery pressures cannot be estimated because of the lack of a measurable TR jet velocity but the IVC suggests a CVP of around 3 mmHg. Pulmonic Valve: The pulmonic valve is not well visualized. Great Vessels: The aortic root is normal size. The ascending aorta is mild- moderately enlarged. IVC is dilated. Respiratory collapse was not well visualized. Pericardium/ Pleura There is an anterior echo-free space consistent with a fat pad. There is no pleural effusion. MMode/2D Measurements & Calculations LVIDd: 4.4 cm LVOT diam: 2.2 cm IVSd: 1.5 cm Ao root diam: 3.7 cm LVPWd: 0.98 cm asc Aorta Diam: 3.8 cm LV campuzano. diameter/BSA (cm/m^2): 2.1 Ao Arch Diam (Prox Trans): 2.9 cm LA A2 area: 27.6 cm2 RA long axis: 5.2 cm LA A4 area: 24.9 cm2 RA area: 20.5 cm2 LA length (vol): 6.1 cm RA vol: 68.2 ml LA vol: 95.8 ml RA : 32.0 ml/m2 LA vol index: 44.9 ml/m2 IVC diam: 2.4 cm RVD1 (basal): 4.1 cm TAPSE: 1.7 cm Doppler Measurements & Calculations Ao V2 max: 188.5 cm/sec LVOT Max Faisal: 65.5 cm/sec Ao V2 mean: 147.4 cm/sec LV V1 max P.7 mmHg Ao max P.3 mmHg LV V1 VTI: 12.6 cm Ao mean P.4 mmHg JAZZY(I,D): 1.4 cm2 Ao V2 VTI: 33.7 cm JAZZY(V,D): 1.3 cm2 sev ratio: 0.37 JAZZY indexed to BSA (cm^2/m^2): 0.65 MV E max faisal: 98.0 cm/sec SV(LVOT): 47.0 ml MV A max faisal: 2.3 cm/sec MV E/A: 43.0 Med Peak E' Faisal: 7.9 cm/sec E/E' med: 12.4 Lat Peak E' Faisal: 11.1 cm/sec E/E' lat: 8.8 E/e' average: 10.6 MV dec time: 0.17 sec Reading Physician:03:53 PM
== END ==
PROVIDERS: PCP Internal Medicine; Referring Provider Internal Medicine Cardiovascular Disease; Visit Provider Internal Medicine Cardiovascular Disease
DX: I08.1 Rheumatic disorders of both mitral and tricuspid valves (principal); I77.89 Other specified disorders of arteries and arterioles; I25.10 Atherosclerotic heart disease of native coronary artery without angina pectoris; Z95.0 Presence of cardiac pacemaker
CPT/HCPCS: 93306

== ENCOUNTER → 2021-02-27 10:51 | Outpatient (CLI) | payer MEDICARE, OTHER, SELFPAY ==
--- NOTE | 2021-02-27 10:55 | DI.RAD.S_ITS ---
PROCEDURE: XR CHEST 2V INDICATIONS: sarcoid TECHNIQUE: 2 views of the chest were acquired. COMPARISON: [facility], CR, XR CHEST 2V, 12/17/2018, 10:29. FINDINGS: Surgical changes and devices: Left chest wall pacemaker leads are in the region of right atrium and right ventricle. Lungs and pleura: Subtle opacities in bilateral lower lung corrales are seen not significantly changed from prior study and likely represent scarring and atelectasis related to patient's history of sarcoidosis. No definite focal infiltrate. No pleural effusions or pneumothorax. Mediastinum: Mediastinal contours are normal. Heart size is normal. Bones and chest wall: No suspicious bony abnormalities. Soft tissues appear unremarkable. IMPRESSION: Chronic appearing changes in bilateral lower lung corrales unchanged from prior study. No definite focal infiltrate, pleural effusion or pneumothorax. Dictated by: Dale Dawn M.D. on 02/27/2021 at 11:52 Approved by: Dale Dawn M.D. on 02/27/2021 at 11:58
[2021-02-27 13:23] LABS: BUN Creatinine Ratio 9.6 (6-22); Blood Urea Nitrogen 10 mg/dL (9-20); Calcium 9.5 mg/dL (8.4-10.2); Carbon Dioxide 31 mmol/L (22-32); Chloride 102 mmol/L (98-107); Estimated Glomerular Filt Rate > 60.0 mL/min (>60); Glucose 114 mg/dL (80-110); HEMOLYSIS < 15 (0-50); Potassium 4.6 mmol/L (3.4-5.1); Sodium 139 mmol/L (137-145)
[2021-02-27 13:48] LABS: Prostate Specific Antigen Scrn 0.599 ng/mL (0.1-4.0)
== END ==
PROVIDERS: PCP Internal Medicine; Referring Provider Internal Medicine; Visit Provider Internal Medicine
DX: D86.9 Sarcoidosis, unspecified (principal); Z12.5 Encounter for screening for malignant neoplasm of prostate; E87.6 Hypokalemia; I10 Essential (primary) hypertension
CPT/HCPCS: 36415; 71046; 80048; G0103

== ENCOUNTER → 2021-03-09 12:50 | Outpatient (CLI) | payer MEDICARE, OTHER, SELFPAY ==
[2021-03-09 13:51] LABS: COVID19 -Nasal RAPID Negative (Negative)
== END ==
PROVIDERS: PCP Internal Medicine; Referring Provider Internal Medicine; Visit Provider Internal Medicine
DX: Z20.822 Contact with and (suspected) exposure to COVID-19 (principal)
CPT/HCPCS: 87635; C9803

== ENCOUNTER → 2021-03-09 12:52 | Outpatient (CLI) | payer MEDICARE, OTHER, SELFPAY ==
--- NOTE | 2021-03-15 08:15 | PM.PFT.1 ---
Pulmonary Function Test Referral & Results Date Patient Seen: 03/15/21 Requesting provider: Aldo Sutton Results: The spirometry demonstrates an FVC of 1.76 L which is 39% of predicted. The FEV1 was measured at 1.46 L which is 45% of predicted. The FEV1/FVC ratio was 83 which is 113% of predicted. Following the administration of bronchodilator there was a 50% improvement in FEF 25-75% Lung volumes show an SVC of 1.98 L which is 42% of predicted. The diffusing capacity was measured at 14.52 which is 43% of predicted. The maximum voluntary ventilation was reduced Interpretation: This study demonstrates probable moderate obstructive lung disease based on reduction FEV1 although FEV1/FVC ratio is preserved there is improvement in small airway flow following bronchodilator and shape a flow volume loop also suggest the presence of obstructive lung disease. However there is moderate restrictive lung disease present as well based on reduction SVC which could have affected the FEV1 as well. There is a moderately severe reduction diffusing capacity suggesting significant disease at the capillary alveolar level Compared to PFTs performed in March 2017, current study shows a reduction in FEV1 which was previously reduced as well and a mild reduction in diffusing capacity. Clinical correlation suggested
== END ==
PROVIDERS: PCP Internal Medicine; Referring Provider Internal Medicine; Visit Provider Internal Medicine
DX: D86.9 Sarcoidosis, unspecified (principal); R06.02 Shortness of breath; Z20.822 Contact with and (suspected) exposure to COVID-19; Z87.891 Personal history of nicotine dependence; J98.8 Other specified respiratory disorders
CPT/HCPCS: 87635; 94060; 94726; 94729; C9803

== ENCOUNTER → 2021-03-17 09:34 | Outpatient (CLI) | payer MEDICARE, OTHER, SELFPAY ==
--- NOTE | 2021-03-17 09:35 | DI.CT.S_ITS ---
PROCEDURE: CT CHEST HIGH RESOLUTION INDICATIONS: sarcoid TECHNIQUE: Noncontrast 1.0 and 5.0 mm thick contiguous axial sections from the pulmonary apex to the posterior costophrenic angles, with 7 mm thick coronal and sagittal MIP reformats. 1 mm thick dynamic expiratory images acquired through the upper, mid, and lower lungs. 1.0 mm thick axial sections acquired from the sarah to the posterior costophrenic angles in the prone end-inspiration position. For radiation dose reduction, the following was used: automated exposure control, adjustment of mA and/or kV according to patient size. COMPARISON: [facility], CT, THORAX WITHOUT CONTRAST, 03/27/2017, 9:26. FINDINGS: Image quality: Excellent. Lungs: Moderate irregular peripheral reticulation throughout upper and lower lung zones, more extensive in the lower lungs. Small patchy airspace opacities are seen in the right lower lung. There are small areas of honeycombing peripherally at the posterior right lower lobe and bilateral medial lower lobes. Occasional patchy peribronchial alveolar opacities are present in mid to lower lung zones bilaterally. Fine ground-glass opacities present amidst honeycombing and peripheral reticulation. Dynamic images demonstrate occasional small areas of air trapping mainly in the mid and lower lungs. The airways are patent and there is minimal traction bronchiectasis peripherally in the medial lower lobes. No significant peribronchial thickening. Pleura: No pleural effusions or pneumothorax. Mediastinum: Heart size is mildly enlarged. Dual lead pacemaker is in place. Heavy coronary artery calcification versus stent. There is a left atrial appendage occlusion device in place. Moderate aortic valvular calcification. No pericardial effusion. There is no bulky mediastinal or hilar adenopathy. Thoracic aorta is normal size. Main pulmonary artery is enlarged measuring 3.8 cm in transverse diameter. Esophagus is normal in caliber. No hiatal hernia. Bones and chest wall: No suspicious bony lesions. No vertebral body compression fractures. Moderate degenerative changes through the thoracic spine. No visible fractures. Abdomen: Visualized upper abdominal solid organs and bowel loops appear normal. IMPRESSION: 1. There is interstitial lung disease including bibasilar fibrosis, peripheral reticulation, fine ground-glass opacity, and patchy alveolar opacity compatible with history of sarcoidosis. 2. The degree of fibrosis at the medial lower lobes has increased mildly compared to the prior study. 3. Patchy alveolar opacities mainly in the right lung seen previously are fairly stable compared to the prior study and likely related to chronic lung disease rather than infection. 4. No evidence of adenopathy. 5. Cardiac changes and devices as described. 6. Stable pulmonary artery enlargement consistent with chronic pulmonary artery hypertension. Dictated by: Kelli Zambrano M.D. on 03/17/2021 at 11:54 Approved by: Kelli Zambrano M.D. on 03/17/2021 at 12:09
== END ==
PROVIDERS: PCP Internal Medicine; Referring Provider Internal Medicine; Visit Provider Internal Medicine
DX: D86.9 Sarcoidosis, unspecified (principal); I51.7 Cardiomegaly; I70.0 Atherosclerosis of aorta; Z95.0 Presence of cardiac pacemaker
CPT/HCPCS: 71250

== ENCOUNTER → 2022-01-05 15:31 | Outpatient (CLI) | payer MEDICARE, OTHER, SELFPAY ==
[2022-01-05 16:32] LABS: HEMOLYSIS < 15 (0-50); Potassium 4.4 mmol/L (3.4-5.1)
[2022-01-05 16:33] LABS: Alanine Aminotransferase 22 IU/L (<50); Albumin 4.3 g/dL (3.5-5.0); Albumin Globulin Ratio 1.4 (1.0-2.8); Alkaline Phosphatase 127 U/L (38-126); Aspartate Aminotransferase 39 IU/L (17-59); BUN Creatinine Ratio 8.8 (6-22); Bilirubin Total 1.2 mg/dL (0.2-1.3); Blood Urea Nitrogen 10 mg/dL (9-20); Calcium 9.1 mg/dL (8.4-10.2); Carbon Dioxide 33 mmol/L (22-32); Chloride 98 mmol/L (98-107); Cholesterol 141 mg/dL (140-199); Estimated Glomerular Filt Rate > 60 mL/min (>60); Globulin 3.1 g/dL (1.7-4.1); Glucose 111 mg/dL (80-110); HDL Cholesterol 71 mg/dL (40-60); LDL Cholesterol Calculated 39 mg/dL (<100); Sodium 138 mmol/L (137-145); Total Protein 7.4 g/dL (6.3-8.2); Triglycerides 153 mg/dL (35-150)
== END ==
PROVIDERS: PCP Internal Medicine; Referring Provider Internal Medicine; Visit Provider Internal Medicine
DX: E78.2 Mixed hyperlipidemia (principal); I10 Essential (primary) hypertension; J67.9 Hypersensitivity pneumonitis due to unspecified organic dust
CPT/HCPCS: 36415; 80053; 80061

== ENCOUNTER → 2022-01-10 14:19 | Outpatient (CLI) | payer MEDICARE, OTHER, SELFPAY ==
[2022-01-10 14:52] LABS: Add Manual Diff / Slide Review NO; Basophils Absolute Auto 100 /uL (0-100); Basophils Percent Auto 0.8 % (0-2); Eosinophils Absolute Auto 100 /uL (0-450); Eosinophils Percent Auto 1.3 % (2-4); Hematocrit 45.2 % (41-53); Hemoglobin 14.9 g/dL (13.5-17.5); Lymphocytes Absolute Auto 1500 /uL (1100-4500); Lymphocytes Percent Auto 17.7 % (25-40); Mean Corpuscular HGB Conc 32.9 % (30-36); Mean Corpuscular Hemoglobin 34.3 PG (26-34); Mean Corpuscular Volume 104.1 fL (80-100); Monocytes Absolute Auto 900 /uL (0-900); Monocytes Percent Auto 10.3 % (3-14); Neutrophils Absolute Auto 5800 /uL (1500-7000); Neutrophils Percent Auto 69.9 % (50-75); Platelet Count 148 X10^3/uL (150-400); Red Blood Cell Count 4.34 X10^6/uL (4.5-5.9); Red Cell Distribution Width 15.6 % (11.6-14.8); White Blood Cell Count 8.4 X10^3/uL (4.5-11.0)
[2022-01-10 15:16] LABS: NT-proBNP (BNP-Adult 18+) 2270 pg/mL (<450)
[2022-01-10 15:38] LABS: Cortisol Random 9.82 ug/dL
== END ==
PROVIDERS: PCP Internal Medicine; Referring Provider Internal Medicine Cardiovascular Disease; Visit Provider Internal Medicine Cardiovascular Disease
DX: I10 Essential (primary) hypertension (principal); R06.02 Shortness of breath
CPT/HCPCS: 36415; 82533; 83880; 85025

== ENCOUNTER → 2022-01-23 09:01 | Outpatient (CLI) | payer MEDICARE, OTHER, SELFPAY ==
[2022-01-23 10:51] LABS: BUN Creatinine Ratio 11.6 (6-22); Blood Urea Nitrogen 13 mg/dL (9-20); Calcium 9.2 mg/dL (8.4-10.2); Carbon Dioxide 38 mmol/L (22-32); Chloride 95 mmol/L (98-107); Estimated Glomerular Filt Rate > 60 mL/min (>60); Glucose 118 mg/dL (80-110); HEMOLYSIS < 15 (0-50); Potassium 4.4 mmol/L (3.4-5.1); Sodium 137 mmol/L (137-145)
== END ==
PROVIDERS: PCP Internal Medicine; Referring Provider Nurse Practitioner Family; Visit Provider Nurse Practitioner Family
DX: R06.02 Shortness of breath (principal); I10 Essential (primary) hypertension
CPT/HCPCS: 36415; 80048

== ENCOUNTER → 2022-01-31 11:02 | Outpatient (CLI) | payer MEDICARE, OTHER, SELFPAY ==
[2022-01-31 12:12] LABS: COVID19 -Nasal RAPID Negative (Negative)
== END ==
PROVIDERS: PCP Internal Medicine; Referring Provider Internal Medicine; Visit Provider Internal Medicine
DX: Z20.822 Contact with and (suspected) exposure to COVID-19 (principal)
CPT/HCPCS: 87635; C9803

== ENCOUNTER → 2022-01-31 12:53 | Outpatient (CLI) | payer MEDICARE, OTHER, SELFPAY ==
--- NOTE | 2022-02-02 07:24 | PM.PFT.1 ---
Pulmonary Function Test Referral & Results Date Patient Seen: 01/31/22 Requesting provider: Juan Clayton Indication: Shortness of breath Results: The spirometry demonstrates an FVC of 1.76 L which is 40% of predicted. The FEV1 was measured at 1.54 L which is 48% of predicted. The FEV1/FVC ratio was 87 which is 120% of predicted. Following the administration of bronchodilator there was no notable change. Lung volumes show an SVC of 2.37 L which is 51% of predicted. The diffusing capacity was measured at 8.60 which is 25% of predicted. No hemoglobin value was provided, so no correction for potential anemia could be made, if appropriate. The maximum voluntary ventilation was reduced Interpretation: This study demonstrates moderately severe obstructive lung disease based on reduction FEV1 although FEV1/FVC ratio is preserved. There is no evidence of benefit following bronchodilator administration There is also evidence of moderately severe restrictive lung disease based on reduction in SVC which may explain some but probably not all of the reduction in the FEV1 above There is a severe reduction diffusing capacity suggesting significant disease at the capillary alveolar level to the point where patient is likely hypoxic at times on room air Compared to PFTs performed in March 2017, current study shows a minimal decline in FEV1 but a substantial decline in diffusing capacity Clinical correlation suggested
== END ==
PROVIDERS: PCP Internal Medicine; Referring Provider Internal Medicine Cardiovascular Disease; Visit Provider Internal Medicine Cardiovascular Disease
DX: R06.02 Shortness of breath (principal); Z87.891 Personal history of nicotine dependence; Z20.822 Contact with and (suspected) exposure to COVID-19; J98.8 Other specified respiratory disorders
CPT/HCPCS: 87635; 94060; 94726; 94729; C9803

== ENCOUNTER → 2022-03-02 09:38 | Outpatient (CLI) | payer MEDICARE, OTHER, SELFPAY ==
--- NOTE | 2022-03-02 | DI.US.S_ITS ---
PROCEDURE: US ARTERIAL DUPLEX LE BI INDICATIONS: PAD CHEST PAIN TECHNIQUE: Color and pulse Doppler interrogation was performed of both lower extremity arterial systems, with image documentation. COMPARISON: [facility] Ultrasound, US, US ARTERIAL LOWER EXTREMITY DOPPLER BILATERAL, 01/30/2022, 11:09. FINDINGS: Normal-appearing, triphasic waveforms are seen proximally. Within the arteries at the level of the ankles, biphasic waveforms are seen, although both peroneal arteries demonstrate apparent monophasic waveforms. The flow velocities are likewise within normal limits. No focal area of increased flow velocity is seen to suggest a focal stenosis. There is a patent stent involving the left common femoral artery and the proximal left superficial femoral artery. Antegrade flow is confirmed to the distal aspects of each of the trifurcation vessels. No significant chavira scale abnormality is seen. IMPRESSION: No hemodynamically significant stenosis can be seen. Patent left common femoral artery to superficial femoral artery stent. Dictated by: Suhail Oleary M.D. on 03/03/2022 at 10:14 Approved by: Suhail Oleary M.D. on 03/03/2022 at 10:17
--- NOTE | 2022-03-02 | DI.US.S_ITS ---
PROCEDURE: US RETROPERITONEAL COMP INDICATIONS: PAD - L iliac stent TECHNIQUE: Real-time scanning was performed of the kidneys and bladder, with image documentation. COMPARISON: None. FINDINGS: The proximal aorta measures 1.9 x 1.9 centimeters. 56 centimeters/second velocity. The mid aorta measures 1.9 x 1.9 centimeters. 59 centimeters/second peak velocity. The distal aorta measures 1.7 x 1.3 centimeters. 54 centimeters/seconds velocity. The right common iliac artery measures 0.9 x 0.9 centimeters. 335 centimeters/seconds velocity. The left common iliac artery measures 0.7 x 1.4 centimeters. 96 centimeters/seconds velocity. Aortoiliac atherosclerotic disease. 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 Left common iliac artery velocity is 96 centimeters/second. Aortoiliac atherosclerosis. IVC is patent. No abdominal aortic aneurysm. Dictated by: Carlitos Dailey M.D. on 03/02/2022 at 18:53 Approved by: Carlitos Dailey M.D. on 03/02/2022 at 18:56
[2022-03-02 12:29] LABS: COVID19 -Nasal RAPID POSITIVE (Negative)
== END ==
PROVIDERS: PCP Internal Medicine; Referring Provider Internal Medicine Cardiovascular Disease; Visit Provider Internal Medicine Cardiovascular Disease
DX: R07.9 Chest pain, unspecified (principal); U07.1 COVID-19; I70.202 Unspecified atherosclerosis of native arteries of extremities, left leg; I48.20 Chronic atrial fibrillation, unspecified; I25.10 Atherosclerotic heart disease of native coronary artery without angina pectoris; Z95.5 Presence of coronary angioplasty implant and graft
CPT/HCPCS: 76770; 87635; 93925; 93975

== ENCOUNTER → 2022-03-02 09:43 | Outpatient (CLI) | payer MEDICARE, OTHER, SELFPAY ==
--- NOTE | 2022-03-02 09:48 | DI.ECHO.S_ITS ---
[facility] +---------+ : : [address] : : : : [id number] : : : : Phone: [phone]+ Echocardiogram Report + + :Name: ROBERTA BROWN Study Date: 03/02/2022 Height: 70 in : :[facility] ReadingLocation: Weight: 205 lb : : Gender: Male BSA: 2.1 m2 : :: 1945 Age: 77 yrs BP: 113/89 mmHg: :Reason For Study: Chest pain : :Ordering Physician: BERTIN, : :CIARAN Performed By: Fish Kaye : :Referring: CIARAN DENTON : + + Interpretation Summary The left ventricle is normal in size. The ejection fraction is estimated to be 55-60%. There has been no significant change in LV EF since the previous exam. The right ventricle is grossly normal size. Right ventricular systolic function is at the lower limits of normal. There is a pacemaker lead in the right ventricle. The aortic valve is moderately calcified. The aortic valve is not well visualized. The peak aortic velocity is 1.97 m/sec. The peak aortic velocity on the previous exam was 1.88 m/sec. The aortic valve mean gradient is 10 mmHg. The calculated aortic valve area is 1.1-1.2 cm2. Based on peak aortic valve velocity, calculated valve area, overall suspect mild to moderate aortic stenosis. There is mild tricuspid regurgitation. Pulmonary artery pressures cannot be estimated because of the lack of a measurable TR jet velocity. The ascending aorta is mildly enlarged. 3.7 cm in diameter. Previously 3.8 cm. Procedure: A two-dimensional transthoracic echocardiogram with color flow and Doppler was performed. The study quality was technically difficult. Comparison is made with the echocardiogram of 01/16/2022. The patient was in atrial fibrillation with controlled ventricular rate during the exam. Left Ventricle: The left ventricle is normal in size. Proximal septal thickening is noted. There is no echo evidence for significant left ventricular outflow tract obstruction. There is no thrombus. Left ventricular systolic function is normal. The ejection fraction is estimated to be 55-60%. There has been no significant change since the previous exam. There are no focal wall motion abnormalities. Diastolic function could not be accurately assessed due to paced rhythm. Right Ventricle: There is a pacemaker lead in the right ventricle. The right ventricle is grossly normal size. Right ventricular systolic function is at the lower limits of normal. Atria: The left atrium is severely dilated. This is unchanged compared to the previous study. Right atrial size is normal. The interatrial septum grossly appears intact with no obvious evidence for an atrial septal defect. Mitral Valve: The mitral valve leaflets are mildly calcified. There is mild to moderate mitral annular calcification. There is no mitral valve stenosis. There is mild mitral regurgitation. Compared to the prior echo study, there has been no change in the severity of mitral regurgitation. Aortic Valve: The aortic valve is moderately calcified. The aortic valve is not well visualized. The calculated aortic valve area is 1.1-1.2 cm2. The aortic valve mean gradient is 10 mmHg. The peak aortic velocity is 1.97 m/sec. The peak aortic velocity on the previous exam was 1.88 m/sec. There is trace aortic regurgitation. Tricuspid Valve: The tricuspid valve is normal. There is mild tricuspid regurgitation. Pulmonary artery pressures cannot be estimated because of the lack of a measurable TR jet velocity. Pulmonic Valve: The pulmonic valve is not well visualized. Great Vessels: The aortic root is normal size. The ascending aorta is mildly enlarged. The inferior vena cava was not well visualized. Pericardium/ Pleura There is no pericardial effusion. There is no pleural effusion. MMode/2D Measurements & Calculations LVIDd: 4.9 cm LVOT diam: 2.3 cm LVIDs: 3.5 cm Ao root diam: 3.4 cm FS: 28.9 % asc Aorta Diam: 3.7 cm IVSd: 1.4 cm LVPWd: 0.70 cm LV campuzano. diameter/BSA (cm/m^2): 2.3 LV sys. diameter/BSA (cm/m^2): 1.7 LA A2 area: 23.1 cm2 RA long axis: 6.8 cm LA A4 area: 28.2 cm2 RA area: 21.7 cm2 LA length (vol): 7.1 cm RA vol: 58.8 ml LA vol: 77.4 ml RA : 27.9 ml/m2 LA vol index: 36.7 ml/m2 TAPSE: 2.0 cm Doppler Measurements & Calculations Ao V2 max: 197.8 cm/sec LVOT Max Faisal: 56.0 cm/sec Ao V2 mean: 148.6 cm/sec LV V1 max P.3 mmHg Ao max P.7 mmHg LV V1 VTI: 10.9 cm Ao mean P.6 mmHg JAZZY(I,D): 1.1 cm2 Ao V2 VTI: 41.0 cm JAZZY(V,D): 1.2 cm2 sev ratio: 0.27 JAZZY indexed to BSA (cm^2/m^2): 0.54 SV(LVOT): 47.1 ml Reading Physician:11:19 AM
--- NOTE | 2022-03-02 18:36 | DI.NM.S_ITS ---
DATE OF SERVICE: 03/02/2022 PROCEDURE: Pharmacological perfusion study. INDICATION: Known coronary artery disease, status post RCA stent in the past, chronic atrial fibrillation, peripheral arterial disease. RADIOPHARMACEUTICAL: 24.8 millicurie technetium-99m Myoview IV was injected at stress and 12.5 millicurie technetium-99m Myoview IV was injected at rest. CARDIAC STRESS: The patient underwent IV Lexiscan perfusion study under the supervision of an attending staff. Baseline rhythm was AFib with intermittent ventricular pacing. During stress, no new convincing ischemic changes seen. The patient remained hemodynamically stable. Had minimal dyspnea. No chest discomfort. RAW DATA: There is increased subdiaphragmatic activity. There is a radiolucent shadow seen near the inferior border of the heart, as well as lateral border of the heart. GATED STUDY: Resting LV ejection fraction 56 and stress LV ejection fraction 61 percent without any obvious wall motion abnormalities. Resting end-diastolic volume 94 mL. TID ratio 1.04, which is within normal limits. Lung/heart ratio 0.34, which is within normal limits. MYOCARDIAL PERFUSION SCAN: Stress supine, resting supine and stress prone images were compared to each other. Stress supine and resting supine images revealed moderate-size, mildly decreased perfusion of inferolateral wall, as well as a small size, mildly decreased perfusion of distal anteroseptum which got significantly improved during stress prone images, suggestive of tissue attenuation artifact. The stress prone images remaining have minimally decreased perfusion of basal inferolateral wall. No reversible ischemia. CONCLUSION: I will call this study likely a normal myocardial perfusion study with evidence of tissue attenuation artifact, which got significant resolved during stress prone images, as stated above. Preserved left ventricular function without any significant wall motion abnormalities. Chronic underlying atrial fibrillation, as well as intermittent ventricular pacing. No obvious wall motion abnormalities. Overall low-risk myocardial perfusion scan. Mateusz Kohli - ROMANA/carlos/amanda doc#: [id number]/job#: [id number] dd: 03/02/2022 17:33:00 dt: 03/02/2022 18:28:00 DICTATING MD/COPIES TO: Juan Clayton MD COPIES MNE: CARINE;
== END ==
PROVIDERS: PCP Internal Medicine; Referring Provider Internal Medicine Cardiovascular Disease; Visit Provider Internal Medicine Cardiovascular Disease
DX: U07.1 COVID-19 (principal); I08.1 Rheumatic disorders of both mitral and tricuspid valves; I77.89 Other specified disorders of arteries and arterioles; R07.9 Chest pain, unspecified; I70.202 Unspecified atherosclerosis of native arteries of extremities, left leg; I48.20 Chronic atrial fibrillation, unspecified; I25.10 Atherosclerotic heart disease of native coronary artery without angina pectoris; R06.02 Shortness of breath; R60.0 Localized edema; Z95.0 Presence of cardiac pacemaker; Z95.5 Presence of coronary angioplasty implant and graft
CPT/HCPCS: 76770; 78452; 87635; 93017; 93306; 93925; 93975; A9502; J2785

== ENCOUNTER → 2022-04-10 12:58 | Outpatient (CLI) | payer MEDICARE, OTHER, SELFPAY ==
--- NOTE | 2022-04-10 | DI.CT.S_ITS ---
PROCEDURE: CT CHEST HIGH RESOLUTION INDICATIONS: ABNORMAL CHEST CT TECHNIQUE: Noncontrast 1.0 and 5.0 mm thick contiguous axial sections from the pulmonary apex to the posterior costophrenic angles, with 7 mm thick coronal and sagittal MIP reformats. 1 mm thick dynamic expiratory images acquired through the upper, mid, and lower lungs. 1.0 mm thick axial sections acquired from the sarah to the posterior costophrenic angles in the prone end-inspiration position. For radiation dose reduction, the following was used: automated exposure control, adjustment of mA and/or kV according to patient size. COMPARISON: [facility], CT, CT CHEST HIGH RESOLUTION, 03/17/2021, 9:39. FINDINGS: Image quality: Excellent. Lungs: Redemonstrated peripheral reticular opacities, traction bronchiectasis, and architectural distortion. Since the previous examination some areas are mildly worsened, for example at the anterior left upper lobe. Other areas appear similar to before. Scattered areas of honeycombing redemonstrated. Since the prior exam there has been improvement in patchy ground-glass and consolidative opacities, for example in the right lower lobe and inferior aspect of the right upper lobe. No substantial air trapping identified on the dynamic images. Pleura: No pleural effusions or pneumothorax. Mediastinum: Multivessel coronary artery calcifications and/or stents. No pericardial effusion. The main pulmonary artery is enlarged measuring 3.7 cm. Esophagus is normal in caliber. Left chest pacemaker. Left atrial occlusion device. No mediastinal adenopathy by size criteria. Bones and chest wall: No suspicious bony lesions. No vertebral body compression fractures. Abdomen: Visualized upper abdominal solid organs and bowel loops appear normal. IMPRESSION: 1. Interstitial lung disease, findings consistent with previously reported sarcoidosis. 2. Fibrotic changes are similar to mildly increased since before. 3. Areas of ground-glass and consolidation, for example the right lower lung, are mildly improved since the previous study. Dictated by: Prateek Rivera M.D. on 04/11/2022 at 10:00 Approved by: Prateek Rivera M.D. on 04/11/2022 at 10:36
== END ==
PROVIDERS: PCP Internal Medicine; Referring Provider Internal Medicine Pulmonary Disease; Visit Provider Internal Medicine Pulmonary Disease
DX: J84.9 Interstitial pulmonary disease, unspecified (principal); R93.89 Abnormal findings on diagnostic imaging of other specified body structures; R06.00 Dyspnea, unspecified; Z95.0 Presence of cardiac pacemaker; G47.30 Sleep apnea, unspecified; G47.00 Insomnia, unspecified
CPT/HCPCS: 71250; 99213

== ENCOUNTER → 2022-04-12 15:47 | Outpatient (CLI) | payer MEDICARE, OTHER, SELFPAY ==
--- NOTE | 2022-05-09 11:07 | PM.EVENT ---
Event Note Date Patient Seen: 04/12/22 Event Note (Rapid Response, Code, or fall): This is a rest and exercise oximetry and oxygen titration study Patient was ambulated up to 250 ft. Patient's oxygen saturation remained above 90% for the duration of the walk. 3 minutes post exercise oxygen saturation was also 94%. Patient really did not begin to get short of breath at all until the end of walk and during the initial recovery portion of the monitoring period. Overall patient does not appear to become hypoxic with activity specifically ambulation up to 250 ft.
== END ==
PROVIDERS: PCP Internal Medicine; Referring Provider Internal Medicine Pulmonary Disease; Visit Provider Internal Medicine Pulmonary Disease
DX: R06.02 Shortness of breath (principal)
CPT/HCPCS: 94618

== ENCOUNTER → 2022-12-17 08:41 | Outpatient (CLI) | payer MEDICARE, OTHER, SELFPAY ==
[2022-12-17 10:45] LABS: Add Manual Diff / Slide Review NO; Basophils Absolute Auto 100 /uL (0-100); Basophils Percent Auto 0.9 % (0-2); Eosinophils Absolute Auto 200 /uL (0-450); Eosinophils Percent Auto 2.3 % (2-4); Hematocrit 46.4 % (41-53); Hemoglobin 15.7 g/dL (13.5-17.5); Lymphocytes Absolute Auto 2200 /uL (1100-4500); Lymphocytes Percent Auto 26.6 % (25-40); Mean Corpuscular HGB Conc 33.8 % (30-36); Mean Corpuscular Volume 103.6 fL (80-100); Monocytes Absolute Auto 1000 /uL (0-900); Monocytes Percent Auto 11.6 % (3-14); Neutrophils Absolute Auto 4900 /uL (1500-7000); Neutrophils Percent Auto 58.6 % (50-75); Platelet Count 162 X10^3/uL (150-400); Red Blood Cell Count 4.48 X10^6/uL (4.5-5.9); Red Cell Distribution Width 14.5 % (11.6-14.8); White Blood Cell Count 8.3 X10^3/uL (4.5-11.0)
[2022-12-17 11:31] LABS: Alanine Aminotransferase 25 IU/L (<50); Albumin 3.9 g/dL (3.5-5.0); Albumin Globulin Ratio 1.3 (1.0-2.8); Alkaline Phosphatase 126 U/L (38-126); Aspartate Aminotransferase 35 IU/L (17-59); Blood Urea Nitrogen 16 mg/dL (9-20); Calcium 9.5 mg/dL (8.4-10.2); Carbon Dioxide 37 mmol/L (22-32); Chloride 91 mmol/L (98-107); Cholesterol 153 mg/dL (140-199); Estimated Glomerular Filt Rate > 60 mL/min (>60); Glucose 113 mg/dL (80-110); HDL Cholesterol 88 mg/dL (40-60); HEMOLYSIS < 15 (0-50); LDL Cholesterol Calculated 37 mg/dL (<100); Magnesium 1.4 mg/dL (1.6-2.3); Sodium 134 mmol/L (137-145); Total Protein 6.9 g/dL (6.3-8.2); Triglycerides 139 mg/dL (35-150)
== END ==
PROVIDERS: PCP Internal Medicine; Referring Provider Internal Medicine; Visit Provider Internal Medicine
DX: D64.9 Anemia, unspecified (principal); E83.42 Hypomagnesemia; E78.2 Mixed hyperlipidemia; I10 Essential (primary) hypertension; J67.9 Hypersensitivity pneumonitis due to unspecified organic dust
CPT/HCPCS: 36415; 80053; 80061; 83735; 85025

== ENCOUNTER → 2023-01-17 08:28 | Outpatient (CLI) | payer MEDICARE, OTHER, SELFPAY ==
[2023-01-17 10:40] LABS: Magnesium 1.5 mg/dL (1.6-2.3)
== END ==
PROVIDERS: PCP Internal Medicine; Referring Provider Internal Medicine Cardiovascular Disease; Visit Provider Internal Medicine Cardiovascular Disease
DX: I50.41 Acute combined systolic (congestive) and diastolic (congestive) heart failure (principal); E61.2 Magnesium deficiency
CPT/HCPCS: 36415; 83735

== ENCOUNTER 2023-04-02 10:11 | Emergency (ER) | payer MEDICARE, OTHER, SELFPAY ==
[2023-04-02 10:16] VITALS: BP 110/73; PULSE 84; RESP 18; TEMP 36.4; O2SAT 99; BMI 27.8
--- NOTE | 2023-04-02 10:36 | DI.RAD.S_ITS ---
PROCEDURE: XR ABDOMEN 1V INDICATIONS: Constipation with abdominal pain TECHNIQUE: One view of the abdomen acquired. COMPARISON: None. FINDINGS: Surgical changes and devices: Left-sided probable aorto iliac vascular graft and surgical clips over the left inguinal region. Bowel: Bowel gas pattern is normal. Moderate right fecal debris Soft tissues: No suspicious abdominal calcifications. Visualized solid organ contours appear normal in size. Bones: No suspicious bony lesions. IMPRESSION: Moderate right fecal debris without obstruction Approved by: Sheldon De La Cruz M.D. on 04/02/2023 at 11:01
--- NOTE | 2023-04-02 11:44 | ED.GENADULT ---
HPI - General Adult General Chief complaint: Abdominal Pain Stated complaint: POSSIBLE BOWEL OBSTRUCTION Time Seen by Provider: 04/02/23 11:30 Source: patient Mode of arrival: Ambulatory History of Present Illness HPI narrative: Patient is a 78-year-old male. No prior history of abdominal surgeries. Has had a colonoscopy in the past but it was approximately 10 years ago. He states that on Saturday he would a very unusual bowel movement where he states it was diarrhea mixed with some hard stool. He is not had a bowel movement since then. He also feels like he has not urinated as much as what he should. No vomiting. No abdominal distention. No chest pain or shortness of breath. Has not tried anything for symptoms prior to arrival. Related Data Home Medications Medication Instructions Recorded Confirmed aspirin 81 mg tablet,delayed 81 mg PO DAILY 04/14/19 01/10/23 release Previous Rx's Medication Instructions Recorded potassium chloride 10 mEq 10 meq PO DAILY #90 tabs 12/21/20 tablet,extended release(part/cryst) nitroglycerin 0.4 mg sublingual 0.4 mg sublingual PRN PRN chest 02/27/21 tablet (Nitrostat) pain #100 tabs Disabled Parking #1 ea 01/05/22 betamethasone dipropionate 0.05 % 1 applic topical DAILY PRN rash 01/11/22 lotion #60 mL atorvastatin 20 mg tablet 20 mg PO DAILY #90 tabs 08/02/22 trazodone 50 mg tablet 50 mg PO BEDTIME #90 tabs 08/02/22 metoprolol succinate 100 mg 50 mg PO DAILY #90 tabs 01/10/23 tablet,extended release 24 hr ciprofloxacin HCl 500 mg tablet 500 mg PO BID 10 days #20 tabs 04/02/23 (Cipro) metronidazole 500 mg tablet 500 mg PO TID 10 days #30 tabs 04/02/23 Allergies Allergy/AdvReac Type Severity Reaction Status Date / Time pregabalin [From Lyrica] AdvReac wooziness Verified 04/02/23 10:19 Review of Systems Constitutional Constitutional: Reports system reviewed and no additional complaints, except as documented Gastrointestinal Gastrointestinal: Reports system reviewed and no additional complaints, except as documented Genitourinary Genitourinary: Reports system reviewed and no additional complaints, except as documented Integumentary/Breasts Skin/Breast: Reports system reviewed and no additional complaints, except as documented Neurologic Neurologic: Reports system reviewed and no additional complaints, except as documented Hematologic/Lymphatic On Anticoagulants: No Patient History Medical History Atrial fibrillation (~2011) Chicken pox Fever (~2009) GI bleed (~2014) Hearing loss (~2014) Hypersensitivity pneumonitis Hypertension, essential (02/12/11) Measles Mixed hyperlipidemia (02/12/11) Mumps Pacemaker (~2011) Pacemaker (~2014) Peripheral neuropathy (~2011) Peripheral vascular disease Presence of Watchman left atrial appendage closure device (~02/2020) Psoriasis (~1989) Skin cancer (~2012) Subdural hematoma (~02/2016) Vision disorder Surgical History Anesthesia History of heart artery stent (~2014) Presence of cardiac pacemaker (~2011) Status post insertion of iliac artery stent (~2012) Status post rotator cuff repair (~2012) Status post rotator cuff repair (~2013) Surgical procedure planned (~2013) Family History Mother Esophageal cancer Father No problems noted. Brother COVID Grandfather Appendicitis Social History Smoking Status: Former smoker Smoking Status: Former smoker alcohol intake frequency: 0-2 drinks per day Substance Use Type: does not use Exam Initial Vital Signs Initial Vital Signs: Vital Signs Temperature 97.6 F 04/02/23 10:16 Pulse Rate 84 04/02/23 10:16 Respiratory Rate 18 04/02/23 10:16 Blood Pressure 110/73 04/02/23 10:16 Pulse Oximetry 99 04/02/23 10:16 Oxygen Delivery Method Room Air 04/02/23 10:16 Const General: cooperative, comfortable and No ill appearing HENMT Head: normal to inspection and normocephalic Resp Effort & Inspection: normal respiratory effort Cardio Rate: regular rate GI Inspection: normal to inspection and non-distended Palpation: soft, No firm, No guarding and tender (Left lower quadrant/suprapubic) Skin General: no rashes or lesions noted Neuro General: patient alert and patient awake Extrem General: capillary refill normal Course Orders Ordered: ED Orders 04/02/23 10:36 XR abdomen 1V Stat 04/02/23 11:45 CT abdomen pelvis w con Stat 04/02/23 11:55 Complete Blood Count AUTO DIFF Stat Comprehensive Metabolic Panel Stat Lipase Stat Discontinued Medications Sodium Chloride (Normal Saline 0.9%) 1,000 mls @ 1,000 mls/hr IV BOLUS ONE Stop: 04/02/23 12:43 Last Admin: 04/02/23 12:21 Dose: 1,000 mls/hr Documented By: CARMENZA Vital Signs Vital signs: Vital Signs - 8 hr 04/02/23 10:16 Temperature 97.6 F Pulse Rate 84 Respiratory Rate 18 Blood Pressure 110/73 Pulse Oximetry 99 Oxygen Delivery Method Room Air Medical Decision Making Lab Data Lab results reviewed: Yes I reviewed the patient's lab results. 04/02/23 11:55 04/02/23 11:55 Labs: Lab Results 04/02/23 04/02/23 Range/Units 11:55 11:55 WBC 9.1 (4.5-11.0) X10^3/uL RBC 4.55 (4.5-5.9) X10^6/uL Hgb 15.7 (13.5-17.5) g/dL Hct 46.5 (41-53) % MCV 102.0 H (80-100) fL MCH 34.5 H (26-34) PG MCHC 33.8 (30-36) % RDW 14.8 (11.6-14.8) % Plt Count 128 L (150-400) X10^3/uL Neut % (Auto) 72.8 (50-75) % Lymph % (Auto) 15.5 L (25-40) % Campbell % (Auto) 9.8 (3-14) % Eos % (Auto) 0.7 L (2-4) % Baso % (Auto) 1.2 (0-2) % Neut # (Auto) 6600 (5864-1656) /uL Lymph # (Auto) 1400 (6164-7026) /uL Campbell # (Auto) 900 (0-900) /uL Eos # (Auto) 100 (0-450) /uL Baso # (Auto) 100 (0-100) /uL Sodium 134 L (137-145) mmol/L Potassium 3.3 L (3.4-5.1) mmol/L Chloride 93 L (98-107) mmol/L Carbon Dioxide 34 H (22-32) mmol/L BUN 14 (9-20) mg/dL Creatinine 1.05 (0.66-1.25) mg/dL Estimated GFR > 60 (>60) mL/min BUN/Creatinine Ratio 13.3 (6-22) Glucose 119 H (80-110) mg/dL Calcium 9.1 (8.4-10.2) mg/dL Total Bilirubin 1.6 H (0.2-1.3) mg/dL AST 29 (17-59) IU/L ALT 21 (<50) IU/L Alkaline Phosphatase 121 (38-126) U/L Total Protein 7.0 (6.3-8.2) g/dL Albumin 3.9 (3.5-5.0) g/dL Globulin 3.1 (1.7-4.1) g/dL Albumin/Globulin Ratio 1.3 (1.0-2.8) Lipase 66 (23-300) U/L Imaging Data Abdominal x-ray: Radiologist's Impression: PROCEDURE:? XR ABDOMEN 1V ? INDICATIONS:? Constipation with abdominal pain ? TECHNIQUE:? One view of the abdomen acquired.? ? COMPARISON:? None. ? FINDINGS:? ? Surgical changes and devices:? Left-sided probable aorto iliac vascular graft and surgical clips over the left inguinal region. ? Bowel:? Bowel gas pattern is normal.? Moderate right fecal debris ? Soft tissues:? No suspicious abdominal calcifications.? Visualized solid organ contours appear normal in size.? ? Bones:? No suspicious bony lesions.? ? IMPRESSION:? Moderate right fecal debris without obstruction MDM Narrative Medical decision making narrative: CT scan today is consistent with diverticulitis which very much his consistent with his clinical presentation today. There was no signs of perforation or abscess. He is not vomiting. Has not septic. Plan will be to discharge home with a prescription for antibiotics. They were sent to the pharmacy of his choice. He was given return precautions. He expressed understanding and agreement. Discharge Plan Departure Patient Disposition: Home Clinical Impression: Diverticulitis Instructions: DI for Diverticulitis Activity Restrictions/Additional Instructions: I do recommend that you take the antibiotics as directed. If you start to get worsening symptoms, fevers, inability to tolerate oral intake then please return to the emergency department for further evaluation. Prescriptions: New ciprofloxacin HCl [Cipro] 500 mg tablet 500 mg PO BID 10 Days Qty: 20 0RF metronidazole 500 mg tablet 500 mg PO TID 10 Days Qty: 30 0RF No Action potassium chloride 10 mEq tablet,ER particles/crystals 10 meq PO DAILY Qty: 90 3RF betamethasone dipropionate 0.05 % lotion 1 applic topical DAILY PRN (Reason: rash) Qty: 60 5RF atorvastatin 20 mg tablet 20 mg PO DAILY Qty: 90 3RF trazodone 50 mg tablet 50 mg PO BEDTIME Qty: 90 3RF nitroglycerin [Nitrostat] 0.4 mg tablet, sublingual 0.4 mg Sublingual PRN PRN (Reason: chest pain) Qty: 100 5RF (DME) Disabled Parking See Rx Instructions .ROUTE .MEDSUPPLY Qty: 1 0RF Rx Instructions: Patient qualifies for disabled parking as per the attached form. metoprolol succinate 100 mg tablet extended release 24 hr 50 mg PO DAILY Qty: 90 1RF aspirin 81 mg tablet,delayed release (DR/EC) 81 mg PO DAILY Referrals: Aldo Sutton MD [Primary Care Provider] - Stand Alone Forms: Patient Portal/API
--- NOTE | 2023-04-02 11:45 | DI.CT.S_ITS ---
PROCEDURE: CT ABDOMEN PELVIS W CON INDICATIONS: Left lower quadrant and suprapubic abdominal pain TECHNIQUE: After the administration of intravenous contrast, axial sections acquired from the lung bases to the pubic symphysis. Coronal and sagittal reformats were performed. For radiation dose reduction, the following was used: automated exposure control, adjustment of mA and/or kV according to patient size. COMPARISON: [facility], CR, XR ABDOMEN 1V, 04/02/2023, 11:11. FINDINGS: Image quality: Excellent. Lung bases: Chronic emphysematous changes and pulmonary fibrosis in visualized bilateral lung bases are seen.. Heart: Heart size is enlarged, no pericardial effusion. Pacemaker leads are no in place. Moderate atherosclerotic calcifications are seen in coronary vessels. ABDOMEN: Liver: Moderate hepatic steatosis is seen, no discrete hepatic lesion is noted.. Gallbladder: Gallbladder is within normal limits. Biliary ducts: Unremarkable. Pancreas: Few punctate calcifications are seen scattered throughout pancreatic parenchyma suggestive of sequelae from remote episodes of pancreatitis. No discrete pancreatic lesion or peripancreatic inflammatory changes. Spleen: Unremarkable. Adrenal Glands: Unremarkable. Kidneys and Ureters: Bilateral kidneys show normal size and enhancement. Likely simple appearing renal cyst in anterior cortex of midpole right kidney is seen measures 2.6 x 3.5 x 3 cm in size . Areas of bilateral renal cortical thinning is seen likely represent prior episodes of infections or injury. No hydronephrosis or hydroureter. Stomach and Bowel: There is no bowel obstruction. No gastric or small bowel wall thickening. Distal sigmoid colon wall thickening in lower pelvis with narrowing of the lumen and pericolonic fat stranding is seen. Sigmoid diverticulosis is also noted. No signs of perforation. No drainable abscess collection. Peritoneum: No abnormal intraperitoneal fluid. No free air. Ventral Wall: No hernias. Abdominal Nodes: No retroperitoneal or mesenteric adenopathy by size criteria. Vessels: Aorta and inferior vena cava are normal in size. Severe atherosclerotic calcifications are seen in abdominal aorta and bilateral iliac arteries. Left common iliac stent is seen. PELVIS: Pelvic Organs: Unremarkable. Bladder: Unremarkable. Pelvic Nodes: No enlarged lymph nodes. Miscellaneous: No hernias are seen. Bones: Degenerative disc disease throughout lower thoracic and lumbar spine is seen. Chronic appearing anterior wedge compression deformities are noted at T10 and T11 levels with up to 20% loss of disc height anteriorly. No suspicious bony lesions. No acute vertebral body compression fracture. IMPRESSION: 1. Finding is consistent with acute diverticulitis involving mid to distal sigmoid colon in lower pelvis. No signs of perforation. No abscess collection. No free fluid or free air. 2. Likely simple cyst in right kidney as above. No hydronephrosis or hydroureter. No obstructing renal stones or solid appearing renal lesion. Thinning of renal cortices bilaterally suggestive of prior injury/infection. 3. Moderate to severe atherosclerotic disease throughout abdominal aorta and bilateral iliac arteries. Dictated by: Dale Dawn M.D. on 04/02/2023 at 13:00 Approved by: Dale Dawn M.D. on 04/02/2023 at 13:10
[2023-04-02 12:12] LABS: Add Manual Diff / Slide Review NO; Basophils Absolute Auto 100 /uL (0-100); Basophils Percent Auto 1.2 % (0-2); Eosinophils Absolute Auto 100 /uL (0-450); Eosinophils Percent Auto 0.7 % (2-4); Hematocrit 46.5 % (41-53); Hemoglobin 15.7 g/dL (13.5-17.5); Lymphocytes Absolute Auto 1400 /uL (1100-4500); Lymphocytes Percent Auto 15.5 % (25-40); Mean Corpuscular HGB Conc 33.8 % (30-36); Mean Corpuscular Hemoglobin 34.5 PG (26-34); Monocytes Absolute Auto 900 /uL (0-900); Monocytes Percent Auto 9.8 % (3-14); Neutrophils Absolute Auto 6600 /uL (1500-7000); Neutrophils Percent Auto 72.8 % (50-75); Platelet Count 128 X10^3/uL (150-400); Red Blood Cell Count 4.55 X10^6/uL (4.5-5.9); Red Cell Distribution Width 14.8 % (11.6-14.8); White Blood Cell Count 9.1 X10^3/uL (4.5-11.0)
[2023-04-02] MEDS: SODIUM CHLORIDE 0.9% 1,000 ML 1000 ML IV (12:21)
[2023-04-02 12:30] LABS: Alanine Aminotransferase 21 IU/L (<50); Albumin 3.9 g/dL (3.5-5.0); Albumin Globulin Ratio 1.3 (1.0-2.8); Alkaline Phosphatase 121 U/L (38-126); Aspartate Aminotransferase 29 IU/L (17-59); BUN Creatinine Ratio 13.3 (6-22); Bilirubin Total 1.6 mg/dL (0.2-1.3); Blood Urea Nitrogen 14 mg/dL (9-20); Calcium 9.1 mg/dL (8.4-10.2); Carbon Dioxide 34 mmol/L (22-32); Chloride 93 mmol/L (98-107); Estimated Glomerular Filt Rate > 60 mL/min (>60); Globulin 3.1 g/dL (1.7-4.1); Glucose 119 mg/dL (80-110); HEMOLYSIS < 15 (0-50); Lipase 66 U/L (23-300); Potassium 3.3 mmol/L (3.4-5.1); Sodium 134 mmol/L (137-145)
[2023-04-02 13:29] VITALS: BP 111/77; PULSE 70; RESP 14; TEMP 36.4; O2SAT 99
== END 2023-04-02 13:30 | disposition home or self-care (01) ==
PROVIDERS: Emergency Provider Emergency Medicine; PCP Internal Medicine
DX: K57.92 Diverticulitis of intestine, part unspecified, without perforation or abscess without bleeding (principal)
CPT/HCPCS: 36415; 51798; 74018; 74177; 80053; 83690; 85025; 99284

== ENCOUNTER 2023-12-13 09:18 | Emergency (ER) | payer MEDICARE, OTHER, SELFPAY ==
[2023-12-13] VITALS (19 sets, daily range): BP systolic 105–155; BP diastolic 57–91; PULSE 70–94; RESP 18–20; TEMP 36.5; O2SAT 92–98; BMI 27.1
--- NOTE | 2023-12-13 09:28 | DI.RAD.S_ITS ---
PROCEDURE: XR KNEE RT 3V INDICATIONS: fall 10 days ago and still has pain with bearing weight. TECHNIQUE: 3 views of the knee were acquired. COMPARISON: None. FINDINGS: Bones: No fractures or dislocations. No suspicious bony lesions. Soft tissues: No joint effusion. No suspicious soft tissue calcifications. Extensive vascular calcifications suggest probable longstanding diabetes. IMPRESSION: 1. No acute bony abnormality noted. 2. Peripheral vascular disease in a pattern suggesting probable longstanding diabetes. Dictated by: Sebastian Burns M.D. on 12/13/2023 at 10:10 Approved by: Sebastian Burns M.D. on 12/13/2023 at 10:11
--- NOTE | 2023-12-13 09:37 | DI.CT.S_ITS ---
PROCEDURE: CT HEAD/BRAIN WO CON INDICATIONS: Fall 10 days ago head strike with increasing swelling TECHNIQUE: Noncontrast 4.5 mm thick angled axial sections acquired from the foramen magnum to the vertex, with coronal and sagittal reformats. For radiation dose reduction, the following was used: automated exposure control, adjustment of mA and/or kV according to patient size. COMPARISON: [facility], CT, CT FACIAL BONES WO CON, 12/13/2023, 9:59. [facility], CT, HEAD WITHOUT CONTRAST, 03/06/2016, 10:05. FINDINGS: Image quality: Diagnostic. CSF spaces: Basal cisterns are patent. Right frontotemporal subdural hygroma without significant mass effect or shift.. The ventricles are symmetric in size and shape. Brain: No intracranial bleeds or masses. There is cerebral volume loss for age, with resultant ventricular and sulcal prominence. There are periventricular and deep white matter chronic small vessel ischemic changes. There is intracranial internal carotid artery atherosclerosis. Skull and face: Left periorbital and left forehead superficial hematoma. Left globe intact. Low out fracture, left orbital floor. Calvarium and visualized facial bones appear intact, without suspicious lesions. Sinuses: Visualized sinuses and mastoids are clear. IMPRESSION: 1. Left orbital floor acute fracture. Associated periorbital hematoma in forehead hematoma. 2. Right subdural hygroma. 3. No acute intracranial process. Comment: Please refer to separate report for CT facial bones. Dictated by: Sebastian Burns M.D. on 12/13/2023 at 10:33 Approved by: Sebastian Burns M.D. on 12/13/2023 at 10:36
--- NOTE | 2023-12-13 09:38 | DI.CT.S_ITS ---
PROCEDURE: CT CERVICAL SPINE WO CON INDICATIONS: Fall 10 days ago with increased bruising overnight from TECHNIQUE: Noncontrast 3 mm thick sections acquired from the skull base to the T4 level. Sagittal and coronal reformats were then constructed. For radiation dose reduction, the following was used: automated exposure control, adjustment of mA and/or kV according to patient size. COMPARISON: None. FINDINGS: Image quality: Excellent. Bones: No fractures or dislocations. Visualized superior ribs are intact. Advanced cervical spondylosis. Reversal of normal lordotic curve. Severe disc height loss and uncovertebral joint osteophytes and bulky osteophytes anteriorly at C3-C4 through C6-C7. Multilevel bony foraminal narrowing. Degenerative anterolisthesis of C7 on T1. Soft tissues: Prevertebral soft tissues are normal in thickness. No paravertebral hematomas. No apical pneumothoraces. Likely densely calcified longstanding high-grade stenosis or occlusion at the level of the left carotid bowl. Reference axial image 36 of series 2. IMPRESSION: 1. No acute cervical fracture or dislocation. 2. Advanced cervical spondylosis. 3. Longstanding high-grade calcified stenosis versus occlusion in the region of the left carotid bulb. Dictated by: Sebastian Burns M.D. on 12/13/2023 at 10:23 Approved by: Sebastian Burns M.D. on 12/13/2023 at 10:33
--- NOTE | 2023-12-13 09:39 | DI.CT.S_ITS ---
PROCEDURE: CT FACIAL BONES WO CON INDICATIONS: Fall w/ head strike 10 days ago increased swelling overnight TECHNIQUE: Noncontrast 2.5 mm thick axial images acquired from the mandible through the frontal sinuses, with coronal and sagittal reformatting. For radiation dose reduction, the following was used: automated exposure control, adjustment of mA and/or kV according to patient size. COMPARISON: None. FINDINGS: Image quality: Excellent. Bones and teeth: Displaced blowout fracture of the left orbital floor with associated hemorrhage present in the left maxillary sinus. No other facial bone fractures. No evidence of entrapment of the inferior extraocular muscle. Nasal bones and septum are intact. Visualized portions of the mandible demonstrate no fractures or subluxation. Zygomatic arches are intact. Pterygoid plates are intact. Visualized portions of the skull base and auditory canals are intact. Sinuses: Paranasal sinuses are aerated, without fluid levels, mucosal thickening, or mucoceles. Mastoid air cells are aerated. Soft tissues: Left periorbital and forehead hematoma. Intact globe. No enlarged lymph nodes. No soft tissue lacerations or debris. Vascular: Visualized vascular structures appear normal in the absence of contrast. Bony vascular foramina and canals are intact. IMPRESSION: 1. Displaced left orbital floor fracture with associated hemorrhage in the left maxillary sinus. 2. Left globe appears intact. 3. No other facial bone fractures or mandibular fractures. Dictated by: Sebastian Burns M.D. on 12/13/2023 at 10:37 Approved by: Sebastian Burns M.D. on 12/13/2023 at 10:39
--- NOTE | 2023-12-13 11:32 | ED.FALL ---
HPI - Fall General Chief Complaint: Fall Stated Complaint: Fell a week ago and bruise on face is bigger Time Seen by Provider: 12/13/23 09:51 Source: patient Mode of arrival: Ambulatory History of Present Illness HPI Narrative: 78-year-old male with history of pacemaker, atrial fibrillation, prior Watchman procedure, takes baby aspirin daily as his only blood thinner medication, had a ground level fall at his home on Saturday before last 10 days ago, tripped on a piece of runaway carpet in hallway, no loss of consciousness, no nausea or vomiting, had bruising and swelling to the left face, concerned today because there was increased swelling in the left forehead area. When directly asked he does admit to some double vision when looking straight, that seems to be persistent but can look [id number] as well as up and down. No prior facial injuries. He denies neck pain. Denies pain or injury to his shoulders, upper arms, elbows, forearms, wrists, hands, fingers. He does admit to pain to his right knee without weakness symptoms, without swelling symptoms. Related Data Home Medications Medication Instructions Recorded Confirmed aspirin 81 mg tablet,delayed 81 mg PO DAILY 04/14/19 11/26/23 release Previous Rx's Medication Instructions Recorded nitroglycerin 0.4 mg sublingual 0.4 mg sublingual PRN PRN chest 02/27/21 tablet (Nitrostat) pain #100 tabs Disabled Parking #1 ea 01/05/22 metoprolol succinate 100 mg 50 mg (1/2 x 100 mg) PO DAILY #90 05/17/23 tablet,extended release 24 hr tabs trazodone 50 mg tablet 50 mg PO BEDTIME #90 tabs 08/01/23 atorvastatin 20 mg tablet 20 mg PO DAILY #90 tabs 08/22/23 betamethasone dipropionate 0.05 % 1 applic topical DAILY PRN rash 10/07/23 lotion #60 mL Allergies Allergy/AdvReac Type Severity Reaction Status Date / Time pregabalin [From Lyrica] AdvReac wooziness Verified 12/13/23 09:27 Review of Systems Review of Systems Narrative: as per HPI Patient History Medical History Atrial fibrillation (~2011) Chicken pox Fever (~2009) GI bleed (~2014) Hearing loss (~2014) Hypersensitivity pneumonitis Hypertension, essential (02/12/11) Measles Mixed hyperlipidemia (02/12/11) Mumps Pacemaker (~2011) Pacemaker (~2014) Peripheral neuropathy (~2011) Peripheral vascular disease Presence of Watchman left atrial appendage closure device (~02/2020) Psoriasis (~1989) Skin cancer (~2012) Subdural hematoma (~02/2016) Vision disorder Surgical History Anesthesia History of heart artery stent (~2014) Presence of cardiac pacemaker (~2011) Status post insertion of iliac artery stent (~2012) Status post rotator cuff repair (~2012) Status post rotator cuff repair (~2013) Surgical procedure planned (~2013) Family History Mother Esophageal cancer Father No problems noted. Brother COVID Grandfather Appendicitis Social History Smoking Status: Former smoker Smoking Status: Former smoker alcohol intake frequency: 0-2 drinks per day Substance Use Type: does not use Exam Narrative Exam Narrative: GENERAL: Well-developed patient, in mild distress. HEAD: Marked ecchymoses left side of the face, with some nonpulsatile swelling in the left forehead, periorbital edema, some scleral edema both eyes, left-sided ecchymoses includes the zygoma, maxilla, cheek, with extension to angle of the jaw on the left. No ecchymoses or tenderness or swelling to his neck. No posterior neck tenderness. EYES: Pupils equal round and reactive. Extraocular motions intact. No scleral icterus. No injection or drainage. ENT: Nose without bleeding, purulent drainage. Throat without erythema, tonsillar hypertrophy or exudate. Airway patent. NECK: Trachea midline. Non tender. No ecchymoses or tenderness or swelling to his neck. No posterior neck tenderness. CARDIOVASCULAR: Regular rate and rhythm without murmurs, gallops, or rubs. RESPIRATORY: Clear to auscultation. Breath sounds equal bilaterally. No wheezes, rales, or rhonchi. GASTROINTESTINAL: Abdomen soft, non-tender, nondistended. EXTREMITIES: No edema or joint tenderness. BACK: Nontender without deformity or crepitance. No flank tenderness. NEURO: AOx3. No obvious lag or dysconjugate gaze on lateral or horizontal gaze testing, he feels that there is some shadowing diplopia looking straight ahead, that is not particularly worse with looking up and down, or [id number]. No facial droop. Motor 5/5 bilateral lower extremities. Motor 5/5 bilateral upper extremities. SKIN: No rash or erythema of visible areas Initial Vital Signs Initial Vital Signs: Vital Signs Temperature 97.7 F 12/13/23 09:21 Pulse Rate 93 H 12/13/23 09:21 Respiratory Rate 18 12/13/23 09:21 Blood Pressure 105/60 12/13/23 09:21 Pulse Oximetry 94 12/13/23 09:21 Oxygen Delivery Method Room Air 12/13/23 09:21 Course Orders Ordered: ED Orders 12/13/23 09:28 XR knee RT 3V Stat 12/13/23 09:37 CT head/brain wo con Stat 12/13/23 09:38 CT cervical spine wo con Stat 12/13/23 09:39 CT facial bones wo con Stat Vital Signs Vital signs: Vital Signs - 8 hr 12/13/23 09:21 12/13/23 09:31 12/13/23 09:31 Temperature 97.7 F Pulse Rate 93 H 94 H Respiratory Rate 18 Blood Pressure 105/60 105/57 L Pulse Oximetry 94 Oxygen Delivery Method Room Air 12/13/23 10:00 12/13/23 10:01 12/13/23 10:01 Temperature Pulse Rate 89 89 Respiratory Rate Blood Pressure 140/78 Pulse Oximetry Oxygen Delivery Method 12/13/23 10:30 12/13/23 10:30 12/13/23 11:00 Temperature Pulse Rate 74 71 Respiratory Rate Blood Pressure 142/69 H Pulse Oximetry 93 93 Oxygen Delivery Method 12/13/23 11:01 12/13/23 11:01 12/13/23 11:30 Temperature Pulse Rate 73 Respiratory Rate Blood Pressure 133/67 136/75 Pulse Oximetry 92 Oxygen Delivery Method 12/13/23 11:30 12/13/23 12:00 12/13/23 12:01 Temperature Pulse Rate 75 83 Respiratory Rate Blood Pressure 147/71 H Pulse Oximetry 92 93 Oxygen Delivery Method 12/13/23 12:01 12/13/23 12:30 12/13/23 12:31 Temperature Pulse Rate 78 85 77 Respiratory Rate Blood Pressure Pulse Oximetry 95 94 93 Oxygen Delivery Method 12/13/23 12:31 12/13/23 13:00 12/13/23 13:01 Temperature Pulse Rate 77 Respiratory Rate Blood Pressure 144/70 H 150/70 H Pulse Oximetry 93 Oxygen Delivery Method 12/13/23 13:01 12/13/23 13:30 12/13/23 13:31 Temperature Pulse Rate 74 70 Respiratory Rate Blood Pressure 155/68 H Pulse Oximetry 93 93 Oxygen Delivery Method 12/13/23 13:31 12/13/23 14:00 12/13/23 14:00 Temperature Pulse Rate 72 79 Respiratory Rate Blood Pressure 155/74 H Pulse Oximetry 93 92 Oxygen Delivery Method MDM - Fall MDM Narrative Medical decision making narrative: Ground level fall ecchymoses to face. Also has knee pain. X-ray series right knee. Impressions: ?No acute bony abnormality noted. Peripheral vascular disease in a pattern suggesting probable longstanding diabetes. ? CT head brain without contrast. Impressions: ?left orbital floor acute fracture. Associated periorbital hematoma in forehead hematoma. Right subdural hygroma. No acute intracranial process.? CT facial bones without contrast. Impressions: ?Displaced left orbital floor fracture with associated hemorrhage in the left maxillary sinus. Left globe appears intact. No other facial bone fractures or mandibular fractures.? CT cervical spine without contrast. Impressions: ?No acute cervical spine fracture or dislocation. Advanced cervical spondylosis. Longstanding high-grade calcified stenosis versus occlusion in the region of the left carotid bulb. ? Case discussed with local ENT on-call Dr. Montoya, he does not manage these types of fractures, nor is aware anybody in this region who manages them, usually refer to trauma center [facility]. We will call [facility] [place] regarding coordination of follow up care. [facility] trauma intake phone call, await call back from Plastic surgery on-call for oral facial surgery Dr. Martinez [phone], discussed with plastic surgery Juan at /[facility], who reviewed the images, does appear to have a blowout fracture inferiorly, likely will need surgery. Hold aspirin therapy for now. Follow up in their clinic on 12/18/2023 this Saturday, they will be contacted on Saturday. Possible surgical repair on 12/19/2023. 1445, case discussed with ophthalmology Dr. Jarquin at [facility], made aware of recommendations above from Dr. Jairon babb, they can do concurrent consultation that day if needed, see plastics as planned on 12/18/2023, with ophthalmology consultation at that time if needed/requested Above recommendations relayed to patient/family, they should be contacted by /[facility] regarding follow up for plastic surgery, possible surgical repair. Stopped taking aspirin for now, elevate head of bed, try not to sneeze or blow nose, no sucking on a straw, avoid further trauma if possible. They should be contacted by [facility] on Saturday. Anticipate clinic appointment with Plastic surgery on 12/17 with possible Ophthalmology consultation if needed, possible surgical repair 12/19/23 Critical Care Time Critical Care Time Critical Care Time: Yes Total Critical Care Time: 31 Attestation: The high probability of a clinically significant, sudden or life threatening deterioration of the [craniofacial, oculomotor, opthalmologic] system(s) required my full and direct attention, intervention and personal management. The aggregate critical care time was [31] minutes. This time is in addition to time spent performing reported procedures but includes the following: [x] Data Review and interpretation [x] Patient assessment and monitoring of vital signs [x] Documentation [x] Medication orders and management Discharge Plan Departure Patient Disposition: Home Clinical Impression: Closed fracture of left orbital floor, Contusion of face, Contusion of right knee Activity Restrictions/Additional Instructions: Ground level fall tripping on carpet 10 days ago at your home, with bruising and swelling to the left side of the face, increased swelling to the left forehead last night, use of blood thinner medication aspirin only, no other blood thinners reported. You did have some slight shadowing double vision on looking at my fingers but we are able to count correctly, the double vision shadowing did not seem to get worse with movements [id number] or up and down. CT scanning showed no brain injuries. No cervical spine injuries. But did show fracture to the inferior floor of the orbit on the left side. Images were shared and your case discussed with with Dr. Martinez Plastic surgery at [facility] in [place], who thought you might require surgery. She asked that you elevate the head of your bed, do not blow your nose, do not drink and suck liquids through a straw, avoid sneezing if at all possible. Avoid any further to the face or eyes. Avoid taking any further aspirin until now, since she might end up having surgery. She stated that you should be contacted on Saturday regarding likely consultation appointment on 12/18/2023 at [facility], with possible consultation with Ophthalmology eye specialists same day if needed. She thought that you might have surgery on 12/19/2023 if indicated at that time with further consultation. She did not think antibiotics were needed at this time. Follow up with [facility] as above. Return to this/nearest emergency department or change worsening symptoms or any concerns prior Regarding your right knee, reassuring exam, no obvious instability or effusion/swelling, x-rays were reportedly negative. Prescriptions: No Action metoprolol succinate 100 mg tablet extended release 24 hr 50 mg PO DAILY Qty: 90 1RF trazodone 50 mg tablet 50 mg PO BEDTIME Qty: 90 1RF atorvastatin 20 mg tablet 20 mg PO DAILY Qty: 90 1RF Rx Instructions: Needs a annual follow up with Dr. Sutton before next renewal. 08/22/23. betamethasone dipropionate 0.05 % lotion 1 applic topical DAILY PRN (Reason: rash) Qty: 60 5RF nitroglycerin [Nitrostat] 0.4 mg tablet, sublingual 0.4 mg Sublingual PRN PRN (Reason: chest pain) Qty: 100 5RF (DME) Disabled Parking See Rx Instructions .ROUTE .MEDSUPPLY Qty: 1 0RF Rx Instructions: Patient qualifies for disabled parking as per the attached form. aspirin 81 mg tablet,delayed release (DR/EC) 81 mg PO DAILY Referrals: Aldo Sutton MD [Primary Care Provider] - Stand Alone Forms: Patient Portal/API
== END 2023-12-13 15:21 | disposition home or self-care (01) ==
PROVIDERS: Emergency Provider Emergency Medicine; PCP Internal Medicine
DX: S00.83XA Contusion of other part of head, initial encounter (principal); S02.32XA Fracture of orbital floor, left side, initial encounter for closed fracture; S80.01XA Contusion of right knee, initial encounter; Z79.82 Long term (current) use of aspirin; W01.0XXA Fall on same level from slipping, tripping and stumbling without subsequent striking against object, initial encounter
CPT/HCPCS: 70450; 70486; 72125; 73562; 99283; 99291

== ENCOUNTER → 2024-01-13 15:40 | Outpatient (CLI) | payer MEDICARE, OTHER, SELFPAY ==
[2024-01-13 17:21] LABS: Add Manual Diff / Slide Review NO; Basophils Absolute Auto 100 /uL (0-100); Basophils Percent Auto 1.2 % (0-2); Eosinophils Absolute Auto 200 /uL (0-450); Eosinophils Percent Auto 2.4 % (2-4); Hematocrit 45.4 % (41-53); Hemoglobin 15.3 g/dL (13.5-17.5); Lymphocytes Absolute Auto 1900 /uL (1100-4500); Lymphocytes Percent Auto 18.9 % (25-40); Mean Corpuscular HGB Conc 33.6 % (30-36); Mean Corpuscular Hemoglobin 34.7 PG (26-34); Mean Corpuscular Volume 103.2 fL (80-100); Monocytes Absolute Auto 900 /uL (0-900); Monocytes Percent Auto 9.3 % (3-14); Neutrophils Absolute Auto 6800 /uL (1500-7000); Neutrophils Percent Auto 68.2 % (50-75); Platelet Count 258 X10^3/uL (150-400); Red Cell Distribution Width 14.9 % (11.6-14.8)
[2024-01-13 18:13] LABS: Alkaline Phosphatase 157 U/L (38-126); Aspartate Aminotransferase 36 IU/L (17-59); BUN Creatinine Ratio 10.7 (6-22); Bilirubin Total 0.8 mg/dL (0.2-1.3); Blood Urea Nitrogen 14 mg/dL (9-20); Calcium 8.7 mg/dL (8.4-10.2); Carbon Dioxide 38 mmol/L (22-32); Chloride 93 mmol/L (98-107); Estimated Glomerular Filt Rate 56 mL/min (>60); Glucose 114 mg/dL (80-110); HEMOLYSIS < 15 (0-50); Magnesium 1.6 mg/dL (1.6-2.3); Potassium 3.8 mmol/L (3.4-5.1)
[2024-01-13 18:15] LABS: Alanine Aminotransferase 28 IU/L (<50); Albumin 3.6 g/dL (3.5-5.0); Albumin Globulin Ratio 1.2 (1.0-2.8); Globulin 2.9 g/dL (1.7-4.1); Sodium 136 mmol/L (137-145); Total Protein 6.5 g/dL (6.3-8.2)
== END ==
PROVIDERS: PCP Internal Medicine; Referring Provider Internal Medicine; Visit Provider Internal Medicine
DX: E78.2 Mixed hyperlipidemia (principal); I10 Essential (primary) hypertension
CPT/HCPCS: 36415; 80053; 83735; 85025

== ENCOUNTER → 2024-02-01 08:32 | Outpatient (CLI) | payer MEDICARE, OTHER, SELFPAY ==
[2024-02-01 10:19] LABS: Cholesterol 147 mg/dL (140-199); HDL Cholesterol 93 mg/dL (40-60); LDL Cholesterol Calculated 28 mg/dL (<100); Triglycerides 131 mg/dL (35-150)
== END ==
PROVIDERS: PCP Internal Medicine; Referring Provider Internal Medicine Cardiovascular Disease; Visit Provider Internal Medicine Cardiovascular Disease
DX: E78.5 Hyperlipidemia, unspecified (principal)
CPT/HCPCS: 36415; 80061

== ENCOUNTER → 2024-02-28 12:24 | Outpatient (CLI) | payer MEDICARE, OTHER, SELFPAY ==
--- NOTE | 2024-02-28 12:25 | DI.ECHO.S_ITS ---
[facility]+ [facility] : : [address] [place] : : [id number] : : Phone: [phone] Echocardiogram Report + + :Name: ROBERTA BROWN Study Date: 02/28/2024 Height: 70 in : :Hospital ReadingLocation: Weight: 190 lb : : Gender: Male BSA: 2.0 m2 : :: 1945 Age: 79 yrs BP: 108/68 mmHg: :Reason For Study: SHORTNESS OF BREATH : :Ordering Physician: BERTIN, : :CIARAN Performed By: Sheila Figueroa : :Referring: CIARAN DENTON : + + Interpretation Summary The left ventricle is normal in size. The ejection fraction is estimated to be 55-60%. No significant change in LVEF from the previous study. The right ventricle is grossly normal size. Right ventricular systolic function is at the lower limits of normal. There is a pacemaker lead in the right ventricle. Aortic valve moderate to heavily calcified. The aortic valve is not well visualized. The peak aortic velocity is 2.9 m/sec. The aortic valve mean gradient is 22 mmHg. Stroke-volume index 22.17 mL/mA? The peak aortic velocity on the previous exam was 1.97 m/sec. sev ratio: 0.26 The calculated aortic valve area is 0.91 cm2. Low-flow low gradient moderate to severe aortic stenosis. Compared to the prior echo study, there has been an increase in the severity of aortic stenosis. There is mild tricuspid regurgitation. Right ventricular systolic pressure is estimated to be 54 mmHg plus the clinically estimated CVP which cannot be estimated on this exam. Procedure: A two-dimensional transthoracic echocardiogram with color flow and Doppler was performed. The study quality was technically adequate. Comparison is made with the echocardiogram of 03/02/2022. The patient was in atrial fibrillation with heart rates between 72-95 bpm during the exam. Intermittent ventricular paced rhythm. Left Ventricle: The left ventricle is normal in size. Proximal septal thickening is noted. There is no thrombus. The ejection fraction is estimated to be 55-60%. There are no focal wall motion abnormalities. Diastolic function could not be accurately assessed due to atrial fibrillation. Right Ventricle: There is a pacemaker lead in the right ventricle. The right ventricle is grossly normal size. Right ventricular systolic function is at the lower limits of normal. Atria: The left atrium is severely dilated. There has been no significant change since the previous study. The right atrium is mildly dilated. There is no Doppler evidence for an interatrial shunt. Mitral Valve: There is a flat closure plane of the the mitral valve leaflets. There is mild to moderate mitral annular calcification. The mitral valve leaflets are mildly calcified. There is trace mitral regurgitation. Aortic Valve: The aortic valve is not well visualized. Aortic valve moderate to heavily calcified. There is moderate aortic stenosis. The peak aortic velocity is 2.9 m/sec. The aortic valve mean gradient is 22 mmHg. The calculated aortic valve area is 0.91 cm2. The peak aortic velocity on the previous exam was 1.97 m/sec. Compared to the prior echo study, there has been an increase in the severity of aortic stenosis. Tricuspid Valve: The tricuspid valve is normal. There is mild tricuspid regurgitation. Right ventricular systolic pressure is estimated to be 54 mmHg plus the clinically estimated CVP which cannot be estimated on this exam. Pulmonic Valve: The pulmonic valve is not well visualized. There is no pulmonic valvular regurgitation. Great Vessels: The aortic root is normal size. The dimensions of the ascending aorta are normal. The inferior vena cava was not well visualized. Pericardium/ Pleura There is no pericardial effusion. There is an anterior echo-free space consistent with a fat pad. There is no pleural effusion. MMode/2D Measurements & Calculations LVIDd: 5.3 cm LVOT diam: 2.2 cm LVIDs: 3.7 cm Ao root diam: 2.9 cm FS: 29.8 % asc Aorta Diam: 3.8 cm EPSS: 0.66 cm Ao Arch Diam (Prox Trans): 2.9 cm IVSd: 1.0 cm LVPWd: 1.3 cm LV campuzano. diameter/BSA (cm/m^2): 2.6 LV sys. diameter/BSA (cm/m^2): 1.8 LA A2 area: 23.5 cm2 RA long axis: 6.6 cm LA A4 area: 23.2 cm2 RA area: 24.1 cm2 LA length (vol): 6.4 cm RA vol: 75.3 ml LA vol: 72.3 ml RA : 36.9 ml/m2 LA vol index: 35.4 ml/m2 RVD1 (basal): 3.7 cm RVD2 (mid): 3.4 cm TAPSE: 1.8 cm Doppler Measurements & Calculations Ao V2 max: 293.2 cm/sec LVOT Max Faisal: 70.9 cm/sec Ao V2 mean: 205.3 cm/sec LV V1 max P.0 mmHg Ao max P.8 mmHg LV V1 VTI: 13.0 cm Ao mean P.9 mmHg JAZZY(I,D): 0.98 cm2 Ao V2 VTI: 50.2 cm JAZZY(V,D): 0.91 cm2 sev ratio: 0.26 JAZZY indexed to BSA (cm^2/m^2): 0.48 MV E max faisal: 95.6 cm/sec TR max faisal: 369.3 cm/sec MV A max faisal: 1.2 cm/sec TR max P.6 mmHg MV E/A: 78.5 PA pr(Accel): 51.6 mmHg Med Peak E' Faisal: 5.8 cm/sec E/E' med: 16.6 Lat Peak E' Faisal: 7.6 cm/sec E/E' lat: 12.5 E/e' average: 14.6 MV dec time: 0.17 sec SV(LVOT): 49.0 ml Reading Physician:03:28 PM
== END ==
PROVIDERS: Family Provider Internal Medicine; PCP Internal Medicine; Referring Provider Internal Medicine Cardiovascular Disease; Visit Provider Internal Medicine Cardiovascular Disease
DX: R06.02 Shortness of breath (principal); I08.3 Combined rheumatic disorders of mitral, aortic and tricuspid valves
CPT/HCPCS: 93306

== ENCOUNTER 2024-03-25 10:30 | Outpatient (RCR) | payer MEDICARE, OTHER, SELFPAY ==
--- NOTE | 2024-03-18 11:51 | PT.OIE ---
Current Diagnoses Unspecified abnormalities of gait and mobility (03/18/24) Past Medical History (Last Updated 01/13/24 @ 15:43 by Aldo Sutton MD) Alcohol dependence Atrial fibrillation (~2011) Chicken pox Fever (~2009) GI bleed (~2014) Hearing loss (~2014) Hypersensitivity pneumonitis Hypertension, essential (02/12/11) Measles Mixed hyperlipidemia (02/12/11) Mumps Pacemaker (~2011) Pacemaker (~2014) Peripheral neuropathy (~2011) Peripheral vascular disease Presence of Watchman left atrial appendage closure device (~02/2020) Psoriasis (~1989) Skin cancer (~2012) Subdural hematoma (~02/2016) Vision disorder Past Surgical History (Last Reviewed 04/17/22 @ 15:21 by VIANEY Matta) Anesthesia History of heart artery stent (~2014) Presence of cardiac pacemaker (~2011) Status post insertion of iliac artery stent (~2012) Status post rotator cuff repair (~2012) Status post rotator cuff repair (~2013) Surgical procedure planned (~2013) Visit Care Team Role Provider Type Aldo Sutton MD Attending Provider Physician Family Provider Primary Care Provider Referring Provider Specialty: Internal Medicine Address: [address] [place] [address], [place] [address] Email: [email or web address] Physical Therapy Initial Evaluation PT-OP-A Visit Information Start: 03/15/24 10:13 Freq: Status: Active Protocol: Document 03/18/24 09:03 MB (Rec: 03/18/24 09:28 MB [id number]) Out-Patient Physical Therapy Visit Information Visit Information Visit Type Initial Evaluation Visit Note Medicare Visit Start Time 09:03 Visit Stop Time 09:43 Visit Number 1 Number of CAPACITOR INSPECTOR Visits 0 Evaluation Information Evaluation Date 03/18/24 Precautions Precautions Possible ETOH, falls, PAD, pacemaker, almost complete occlusion of left carotid, sarcoidosis and 50% lung capacity. Consider checking O2 sats and BP and HR with exertional activities. PT-OP-B Current Condition Start: 03/15/24 10:13 Freq: Status: Active Protocol: Document 03/18/24 09:03 MB (Rec: 03/18/24 09:28 MB [id number]) Current Condition History of Current Condition Onset Date Over past several years Current Complaints Trouble walking and imbalance History of Current Condition 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 Pt had a bad fall 12/09/23 and hit his face, broke his left orbital bone and had surgery in [place]. He also hurt his right knee and had an orthopedist look at it. Right knee x-ray is negative. Pt states that he had a vodka tonic last night and it was his only drink. He reports only one fall this year and it was in December. He has a cane and does not use it. 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 Pt reports light-headedness when he stands up. Since he had his fall, he has not been working out like he used to do and he feels like his leg strength has diminished. Pt also reports history of sarcoidosis and 50% lung capacity. Treatment Goals Patient/Caregiver Goals Improve balance PT-OP-C Subjective Start: 03/15/24 10:13 Freq: Status: Active Protocol: Document 03/18/24 09:03 MB (Rec: 03/18/24 09:28 MB [id number]) OP-PT Subjective Patient Comments Patient Comments See history of current condition PT-OP-D Balance Start: 03/15/24 10:13 Freq: Status: Active Protocol: Document 03/18/24 09:03 MB (Rec: 03/18/24 11:43 MB [id number]) Balance Tests Romberg Romberg TRANSPORTATION ENGINEERING TECHNICIAN to get into position and to maintain PT-OP-G Mobility & Gait Start: 03/15/24 10:13 Freq: Status: Active Protocol: Document 03/18/24 09:03 MB (Rec: 03/18/24 11:43 MB [id number]) OP Gait Assessment Comments Gait Comments Wide STEFFEN and decreased heel strike and push off B with increased Miguel angle right foot and functional foot drop appearance right foot. Pt reports B neuropathy and recent right knee injury when he fell. He has a cane at home but is not currently using it . PT-OP-M Strength Start: 03/15/24 10:13 Freq: Status: Active Protocol: Document 03/18/24 09:03 MB (Rec: 03/18/24 11:43 MB [id number]) Hip Strength Hip Manual Muscle Testing Bilateral Flexion (L2) 3+ Fair+ Comments Performed all MMT in sitting today Knee Strength Knee Manual Muscle Testing Bilateral Flexion (S2) 5 Normal Extension (L3) 5 Normal Comments Bump area over right patella under skin Ankle/Foot Strength Ankle and Foot Manual Muscle Testing Left Dorsiflexion (L4) 2+ Poor+ Right Dorsiflexion (L4) 3- Fair- Comments Right foot and ankle appear weaker functionally with gait compared to the left Toe Strength Toe Manual Muscle Testing Left Great Toe Extension 3+ Fair+ Right Great Toe Extension 3+ Fair+ PT-OP-Q Treatments Start: 03/15/24 10:13 Freq: Status: Active Protocol: Document 03/18/24 09:03 MB (Rec: 03/18/24 11:39 MB [id number]) Gait Training Gait Activity Gait training with SPC Comments Tried SPC in both right and left hand and while right leg really needs the support, pt has trouble managing cane in left hand and performs better with use in right hand. Right foot with increased Miguel angle and wide STEFFEN and decreased heel strike, foot clearance and to push off, right foot is functionally presenting like foot drop with gait PT-OP-T Assessment and Plan Start: 03/15/24 10:13 Freq: Status: Active Protocol: Document 03/18/24 09:03 MB (Rec: 03/18/24 09:28 MB [id number]) Physical Therapy Assessment Rehab Potential Rehabilitation Potential Fair Evaluation Complexity Number of Personal Factors/Comorbidities 1-2 Number of Body Systems Impaired 3 Clinical Presentation at Evaluation Evolving Impairments Impairments Activity Tolerance,Balance, Coordination,Functional Activities,Functional Mobility ,Gait,Posture,ROM,Sensation, Soft Tissue Mobility,Strength, Transfers,Vestibular Other Concerns Fall Risk Yes Goals 4 Impairment Lack of HEP Alf Goal (LTG) Pt will perform progressive HEP with I including strengthening, balance, gait and flexibility exercises. LTG Duration 5 weeks 3 Impairment Poor gait tolerance Alf Goal (LTG) Pt will gait train at least 1200 in 6 minutes with use of cane to improve community ambulation and safety. LTG Duration 5 weeks 2 Impairment Decreased gait speed Alf Goal (LTG) Pt will perform TUG with cane in no more than 10 sec to improve gait speed and to decrease fall risk. LTG Duration 5 weeks 1 Impairment Evidence of imbalance Telephone Directory Distributor Driver Goal (LTG) Pt will perform WNLs on Tinetti with use of SPC to decrease fall risk. LTG Duration 5 weeks Assessment Summary Assessment Pt is a 79 y/o male presenting with reports of imbalance and trouble with gait. He had a bad fall in December and fractured his left orbit and hurt his right knee. He reports he would like to stop drinking and also that he had a vodka drink last night. Unsure how much alcohol he is consuming and if this is a part of his imbalance issues. PMH is complicated and includes PAD, stenting, pacemaker, left carotid almost completed stenosis or occlusion and sarcoidosis with pt reporting 50% lung capacity. Orthostatic assessment with BP and HR LUE : 112/62, 78; standing immediately machine does not read; standing 1' 93/63, 90; standing 2' machine does not read; standing 3' 93/63, 79. Pt states that he usually has a hard time getting BP in LUE after PT performs assessment and so will check in right arm in future. 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 He is fearful and has poor balance with attempted Romberg today. Initiated gait training and ed pt to start practicing using his cane at home. He will benefit from PT to improve balance, safety and gait. He states he and are snow birds and they return to [place] the end of April. Physical Therapy Plan Frequency and Duration Frequency of Treatment 1-2x/wk Duration of treatment (weeks) 5 Plan of Care Start Date 03/18/24 Plan of Care End Date 05/01/24 Therapeutic Interventions Therapeutic Interventions Balance Training,Canalithic Repositioning,Coordination Training,Gait Training,Home Exercise Program,Joint Mobilizations,Manual Therapy, Neuromuscular Re-education, Patient/Caregiver Education, Self-Care/Home Management,Soft Tissue Mobilization,Taping, Therapeutic Activities, Therapeutic Exercises, Vestibular Rehabilitation Modalities Cold Pack/Ice Massage,Hot Packs Next Visit Focus/Plan Next Note Type Treatment Note Next Visit Plan Check orthostatics in RIGHT upper extremity: supine, standing, standing 1' and then until stops dropping TUG with cane, 6MWT with cane, further cane training Initiate Jessica Ramirez
--- NOTE | 2024-03-18 11:51 | PT.OPPOC ---
Physical, Occupational & Speech Therapy At [facility] Current Diagnoses Unspecified abnormalities of gait and mobility (03/18/24) Visit Care Team Role Provider Type Aldo Sutton MD Attending Provider Physician Family Provider Primary Care Provider Referring Provider Specialty: Internal Medicine Address: [address] [place] [address], [address], [facility] Email: [email or web address] Plan Of Care PT-OP-B Current Condition Start: 03/15/24 10:13 Freq: Status: Active Protocol: Document 03/18/24 09:03 MB (Rec: 03/18/24 09:28 MB [id number]) Current Condition History of Current Condition Onset Date Over past several years Current Complaints Trouble walking and imbalance History of Current Condition 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 Pt had a bad fall 12/09/23 and hit his face, broke his left orbital bone and had surgery in [place]. He also hurt his right knee and had an orthopedist look at it. Right knee x-ray is negative. Pt states that he had a vodka tonic last night and it was his only drink. He reports only one fall this year and it was in December. He has a cane and does not use it. 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 Pt reports light-headedness when he stands up. Since he had his fall, he has not been working out like he used to do and he feels like his leg strength has diminished. Pt also reports history of sarcoidosis and 50% lung capacity. Treatment Goals Patient/Caregiver Goals Improve balance PT-OP-T Assessment and Plan Start: 03/15/24 10:13 Freq: Status: Active Protocol: Document 03/18/24 09:03 MB (Rec: 03/18/24 09:28 MB [id number]) Physical Therapy Assessment Rehab Potential Rehabilitation Potential Fair Evaluation Complexity Number of Personal Factors/Comorbidities 1-2 Number of Body Systems Impaired 3 Clinical Presentation at Evaluation Evolving Impairments Impairments Activity Tolerance,Balance, Coordination,Functional Activities,Functional Mobility ,Gait,Posture,ROM,Sensation, Soft Tissue Mobility,Strength, Transfers,Vestibular Other Concerns Fall Risk Yes Goals 4 Impairment Lack of HEP Senior Care Goal (LTG) Pt will perform progressive HEP with I including strengthening, balance, gait and flexibility exercises. LTG Duration 5 weeks 3 Impairment Poor gait tolerance Senior Care Goal (LTG) Pt will gait train at least 1200 in 6 minutes with use of cane to improve community ambulation and safety. LTG Duration 5 weeks 2 Impairment Decreased gait speed Senior Care Goal (LTG) Pt will perform TUG with cane in no more than 10 sec to improve gait speed and to decrease fall risk. LTG Duration 5 weeks 1 Impairment Evidence of imbalance Supply Chain Planner Goal (LTG) Pt will perform WNLs on Tinetti with use of SPC to decrease fall risk. LTG Duration 5 weeks Assessment Summary Assessment Pt is a 79 y/o male presenting with reports of imbalance and trouble with gait. He had a bad fall in December and fractured his left orbit and hurt his right knee. He reports he would like to stop drinking and also that he had a vodka drink last night. Unsure how much alcohol he is consuming and if this is a part of his imbalance issues. PMH is complicated and includes PAD, stenting, pacemaker, left carotid almost completed stenosis or occlusion and sarcoidosis with pt reporting 50% lung capacity. Orthostatic assessment with BP and HR LUE : 112/62, 78; standing immediately machine does not read; standing 1' 93/63, 90; standing 2' machine does not read; standing 3' 93/63, 79. Pt states that he usually has a hard time getting BP in LUE after PT performs assessment and so will check in right arm in future. 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 He is fearful and has poor balance with attempted Romberg today. Initiated gait training and ed pt to start practicing using his cane at home. He will benefit from PT to improve balance, safety and gait. He states he and are snow birds and they return to [place] the end of April. Physical Therapy Plan Frequency and Duration Frequency of Treatment 1-2x/wk Duration of treatment (weeks) 5 Plan of Care Start Date 03/18/24 Plan of Care End Date 05/01/24 Therapeutic Interventions Therapeutic Interventions Balance Training,Canalithic Repositioning,Coordination Training,Gait Training,Home Exercise Program,Joint Mobilizations,Manual Therapy, Neuromuscular Re-education, Patient/Caregiver Education, Self-Care/Home Management,Soft Tissue Mobilization,Taping, Therapeutic Activities, Therapeutic Exercises, Vestibular Rehabilitation Modalities Cold Pack/Ice Massage,Hot Packs Next Visit Focus/Plan Next Note Type Treatment Note Next Visit Plan Check orthostatics in RIGHT upper extremity: supine, standing, standing 1' and then until stops dropping TUG with cane, 6MWT with cane, further cane training Initiate [place] type KAYLEIGH Evasnetti Plan of Care Dates Plan of Care Start Date 03/18/24 Plan of Care End Date 05/01/24 Electronically Signed by: Jailene Lemos, PT 03/18/24 1975 If you are in agreement with this Plan of Care, please return a signed and dated copy. I have reviewed this Plan of Care and certify that the skilled therapy services above are required to meet the patient?s needs. Physician Signature Date Printed Name and Credentials Clinical Instructor Signature Printed Name and Credentials
--- NOTE | 2024-03-18 11:56 | PT.OIE ---
Current Diagnoses Unspecified abnormalities of gait and mobility (03/18/24) Past Medical History (Last Updated 01/13/24 @ 15:43 by Aldo Sutton MD) Alcohol dependence Atrial fibrillation (~2011) Chicken pox Fever (~2009) GI bleed (~2014) Hearing loss (~2014) Hypersensitivity pneumonitis Hypertension, essential (02/12/11) Measles Mixed hyperlipidemia (02/12/11) Mumps Pacemaker (~2011) Pacemaker (~2014) Peripheral neuropathy (~2011) Peripheral vascular disease Presence of Watchman left atrial appendage closure device (~02/2020) Psoriasis (~1989) Skin cancer (~2012) Subdural hematoma (~02/2016) Vision disorder Past Surgical History (Last Reviewed 04/17/22 @ 15:21 by VIANEY Matta) Anesthesia History of heart artery stent (~2014) Presence of cardiac pacemaker (~2011) Status post insertion of iliac artery stent (~2012) Status post rotator cuff repair (~2012) Status post rotator cuff repair (~2013) Surgical procedure planned (~2013) Visit Care Team Role Provider Type Aldo Sutton MD Attending Provider Physician Family Provider Primary Care Provider Referring Provider Specialty: Internal Medicine Address: [address] [place] [address], [place] [address] Email: [email or web address] Physical Therapy Initial Evaluation PT-OP-A Visit Information Start: 03/15/24 10:13 Freq: Status: Active Protocol: Document 03/18/24 09:03 MB (Rec: 03/18/24 09:28 MB [id number]) Out-Patient Physical Therapy Visit Information Visit Information Visit Type Initial Evaluation Visit Note Medicare Visit Start Time 09:03 Visit Stop Time 09:43 Visit Number 1 Number of HORTICULTURE TEACHER Visits 0 Evaluation Information Evaluation Date 03/18/24 Precautions Precautions Possible ETOH, falls, PAD, pacemaker, almost complete occlusion of left carotid, sarcoidosis and 50% lung capacity. Consider checking O2 sats and BP and HR with exertional activities. PT-OP-B Current Condition Start: 03/15/24 10:13 Freq: Status: Active Protocol: Document 03/18/24 09:03 MB (Rec: 03/18/24 09:28 MB [id number]) Current Condition History of Current Condition Onset Date Over past several years Current Complaints Trouble walking and imbalance History of Current Condition 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 Pt had a bad fall 12/09/23 and hit his face, broke his left orbital bone and had surgery in [place]. He also hurt his right knee and had an orthopedist look at it. Right knee x-ray is negative. Pt states that he had a vodka tonic last night and it was his only drink. He reports only one fall this year and it was in December. He has a cane and does not use it. 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 Pt reports light-headedness when he stands up. Since he had his fall, he has not been working out like he used to do and he feels like his leg strength has diminished. Pt also reports history of sarcoidosis and 50% lung capacity. Treatment Goals Patient/Caregiver Goals Improve balance PT-OP-C Subjective Start: 03/15/24 10:13 Freq: Status: Active Protocol: Document 03/18/24 09:03 MB (Rec: 03/18/24 09:28 MB [id number]) OP-PT Subjective Patient Comments Patient Comments See history of current condition Patient Questionnaires Other Questionnaire Name and Score FES score is 35/64, indicating concerns for falling PT-OP-D Balance Start: 03/15/24 10:13 Freq: Status: Active Protocol: Document 03/18/24 09:03 MB (Rec: 03/18/24 11:43 MB [id number]) Balance Tests Romberg Romberg FOOT WORKER to get into position and to maintain PT-OP-G Mobility & Gait Start: 03/15/24 10:13 Freq: Status: Active Protocol: Document 03/18/24 09:03 MB (Rec: 03/18/24 11:43 MB [id number]) OP Gait Assessment Comments Gait Comments Wide STEFFEN and decreased heel strike and push off B with increased Miguel angle right foot and functional foot drop appearance right foot. Pt reports B neuropathy and recent right knee injury when he fell. He has a cane at home but is not currently using it . PT-OP-M Strength Start: 03/15/24 10:13 Freq: Status: Active Protocol: Document 03/18/24 09:03 MB (Rec: 03/18/24 11:43 MB [id number]) Hip Strength Hip Manual Muscle Testing Bilateral Flexion (L2) 3+ Fair+ Comments Performed all MMT in sitting today Knee Strength Knee Manual Muscle Testing Bilateral Flexion (S2) 5 Normal Extension (L3) 5 Normal Comments Bump area over right patella under skin Ankle/Foot Strength Ankle and Foot Manual Muscle Testing Left Dorsiflexion (L4) 2+ Poor+ Right Dorsiflexion (L4) 3- Fair- Comments Right foot and ankle appear weaker functionally with gait compared to the left Toe Strength Toe Manual Muscle Testing Left Great Toe Extension 3+ Fair+ Right Great Toe Extension 3+ Fair+ PT-OP-Q Treatments Start: 03/15/24 10:13 Freq: Status: Active Protocol: Document 03/18/24 09:03 MB (Rec: 03/18/24 11:39 MB [id number]) Gait Training Gait Activity Gait training with SPC Comments Tried SPC in both right and left hand and while right leg really needs the support, pt has trouble managing cane in left hand and performs better with use in right hand. Right foot with increased Miguel angle and wide STEFFEN and decreased heel strike, foot clearance and to push off, right foot is functionally presenting like foot drop with gait PT-OP-T Assessment and Plan Start: 03/15/24 10:13 Freq: Status: Active Protocol: Document 03/18/24 09:03 MB (Rec: 03/18/24 09:28 [id number]) Physical Therapy Assessment Rehab Potential Rehabilitation Potential Fair Evaluation Complexity Number of Personal Factors/Comorbidities 1-2 Number of Body Systems Impaired 3 Clinical Presentation at Evaluation Evolving Impairments Impairments Activity Tolerance,Balance, Coordination,Functional Activities,Functional Mobility ,Gait,Posture,ROM,Sensation, Soft Tissue Mobility,Strength, Transfers,Vestibular Other Concerns Fall Risk Yes Goals 4 Impairment Lack of HEP Fpc Goal (LTG) Pt will perform progressive HEP with I including strengthening, balance, gait and flexibility exercises. LTG Duration 5 weeks 3 Impairment Poor gait tolerance Fpc Goal (LTG) Pt will gait train at least 1200 in 6 minutes with use of cane to improve community ambulation and safety. LTG Duration 5 weeks 2 Impairment Decreased gait speed Radiology Resident Goal (LTG) Pt will perform TUG with cane in no more than 10 sec to improve gait speed and to decrease fall risk. LTG Duration 5 weeks 1 Impairment Evidence of imbalance Fpc Goal (LTG) Pt will perform WNLs on Tinetti with use of SPC to decrease fall risk. LTG Duration 5 weeks Assessment Summary Assessment Pt is a 79 y/o male presenting with reports of imbalance and trouble with gait. He had a bad fall in December and fractured his left orbit and hurt his right knee. He reports he would like to stop drinking and also that he had a vodka drink last night. Unsure how much alcohol he is consuming and if this is a part of his imbalance issues. PMH is complicated and includes PAD, stenting, pacemaker, left carotid almost completely stenotic or occluded and sarcoidosis with pt reporting 50% lung capacity. Orthostatic assessment with BP and HR LUE : supine 112/62, 78; standing immediately machine does not read; standing 1' 93/63, 90; standing 2' machine does not read; standing 3' 93/63, 79. Pt states that he usually has a hard time getting BP in LUE after PT performs assessment and so will check in right arm in future. 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 He is fearful and has poor balance with attempted Romberg today. Initiated gait training and ed pt to start practicing using his cane at home. He will benefit from PT to improve balance, safety and gait. He states he and are snow birds and they return to [place] the end of April. Physical Therapy Plan Frequency and Duration Frequency of Treatment 1-2x/wk Duration of treatment (weeks) 5 Plan of Care Start Date 03/18/24 Plan of Care End Date 05/01/24 Therapeutic Interventions Therapeutic Interventions Balance Training,Canalithic Repositioning,Coordination Training,Gait Training,Home Exercise Program,Joint Mobilizations,Manual Therapy, Neuromuscular Re-education, Patient/Caregiver Education, Self-Care/Home Management,Soft Tissue Mobilization,Taping, Therapeutic Activities, Therapeutic Exercises, Vestibular Rehabilitation Modalities Cold Pack/Ice Massage,Hot Packs Next Visit Focus/Plan Next Note Type Treatment Note Next Visit Plan Check orthostatics in RIGHT upper extremity: supine, standing, standing 1' and then until stops dropping TUG with cane, 6MWT with cane, further cane training Initiate [place] type HEP Tinetti
--- NOTE | 2024-03-18 11:56 | PT.OPPOC ---
Physical, Occupational & Speech Therapy At [facility] Current Diagnoses Unspecified abnormalities of gait and mobility (03/18/24) Visit Care Team Role Provider Type Aldo Sutton MD Attending Provider Physician Family Provider Primary Care Provider Referring Provider Specialty: Internal Medicine Address: [address] [place] [address], [address], [facility] Email: [email or web address] Plan Of Care PT-OP-B Current Condition Start: 03/15/24 10:13 Freq: Status: Active Protocol: Document 03/18/24 09:03 MB (Rec: 03/18/24 09:28 MB [id number]) Current Condition History of Current Condition Onset Date Over past several years Current Complaints Trouble walking and imbalance History of Current Condition 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 Pt had a bad fall 12/09/23 and hit his face, broke his left orbital bone and had surgery in [place]. He also hurt his right knee and had an orthopedist look at it. Right knee x-ray is negative. Pt states that he had a vodka tonic last night and it was his only drink. He reports only one fall this year and it was in December. He has a cane and does not use it. 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 Pt reports light-headedness when he stands up. Since he had his fall, he has not been working out like he used to do and he feels like his leg strength has diminished. Pt also reports history of sarcoidosis and 50% lung capacity. Treatment Goals Patient/Caregiver Goals Improve balance PT-OP-T Assessment and Plan Start: 03/15/24 10:13 Freq: Status: Active Protocol: Document 03/18/24 09:03 MB (Rec: 03/18/24 09:28 MB [id number]) Physical Therapy Assessment Rehab Potential Rehabilitation Potential Fair Evaluation Complexity Number of Personal Factors/Comorbidities 1-2 Number of Body Systems Impaired 3 Clinical Presentation at Evaluation Evolving Impairments Impairments Activity Tolerance,Balance, Coordination,Functional Activities,Functional Mobility ,Gait,Posture,ROM,Sensation, Soft Tissue Mobility,Strength, Transfers,Vestibular Other Concerns Fall Risk Yes Goals 4 Impairment Lack of HEP Retirement Goal (LTG) Pt will perform progressive HEP with I including strengthening, balance, gait and flexibility exercises. LTG Duration 5 weeks 3 Impairment Poor gait tolerance Retirement Goal (LTG) Pt will gait train at least 1200 in 6 minutes with use of cane to improve community ambulation and safety. LTG Duration 5 weeks 2 Impairment Decreased gait speed Retirement Goal (LTG) Pt will perform TUG with cane in no more than 10 sec to improve gait speed and to decrease fall risk. LTG Duration 5 weeks 1 Impairment Evidence of imbalance Hat Cone Inspector Goal (LTG) Pt will perform WNLs on Tinetti with use of SPC to decrease fall risk. LTG Duration 5 weeks Assessment Summary Assessment Pt is a 79 y/o male presenting with reports of imbalance and trouble with gait. He had a bad fall in December and fractured his left orbit and hurt his right knee. He reports he would like to stop drinking and also that he had a vodka drink last night. Unsure how much alcohol he is consuming and if this is a part of his imbalance issues. PMH is complicated and includes PAD, stenting, pacemaker, left carotid almost completely stenotic or occluded and sarcoidosis with pt reporting 50% lung capacity. Orthostatic assessment with BP and HR LUE : supine 112/62, 78; standing immediately machine does not read; standing 1' 93/63, 90; standing 2' machine does not read; standing 3' 93/63, 79. Pt states that he usually has a hard time getting BP in LUE after PT performs assessment and so will check in right arm in future. 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 He is fearful and has poor balance with attempted Romberg today. Initiated gait training and ed pt to start practicing using his cane at home. He will benefit from PT to improve balance, safety and gait. He states he and are snow birds and they return to [place] the end of April. Physical Therapy Plan Frequency and Duration Frequency of Treatment 1-2x/wk Duration of treatment (weeks) 5 Plan of Care Start Date 03/18/24 Plan of Care End Date 05/01/24 Therapeutic Interventions Therapeutic Interventions Balance Training,Canalithic Repositioning,Coordination Training,Gait Training,Home Exercise Program,Joint Mobilizations,Manual Therapy, Neuromuscular Re-education, Patient/Caregiver Education, Self-Care/Home Management,Soft Tissue Mobilization,Taping, Therapeutic Activities, Therapeutic Exercises, Vestibular Rehabilitation Modalities Cold Pack/Ice Massage,Hot Packs Next Visit Focus/Plan Next Note Type Treatment Note Next Visit Plan Check orthostatics in RIGHT upper extremity: supine, standing, standing 1' and then until stops dropping TUG with cane, 6MWT with cane, further cane training Initiate [place] type HEP Tinetti Plan of Care Dates Plan of Care Start Date 03/18/24 Plan of Care End Date 05/01/24 Electronically Signed by: Jailene Lemos, PT 03/18/24 5104 If you are in agreement with this Plan of Care, please return a signed and dated copy. I have reviewed this Plan of Care and certify that the skilled therapy services above are required to meet the patient?s needs. Physician Signature Date Printed Name and Credentials Clinical Instructor Signature Printed Name and Credentials
--- NOTE | 2024-03-23 09:40 | PT.OTN ---
Current Diagnoses Unspecified abnormalities of gait and mobility (03/23/24) Physical Therapy Treatment Note PT-OP-A Visit Information Start: 03/15/24 10:13 Freq: Status: Active Protocol: Document 03/23/24 08:58 MB (Rec: 03/23/24 09:40 MB [id number]) Out-Patient Physical Therapy Visit Information Visit Information Visit Type Initial Evaluation Visit Note Medicare Visit Start Time 08:58 Visit Stop Time 09:36 Visit Number 2 Number of SALES PROJECT ENGINEER Visits 0 Evaluation Information Evaluation Date 03/18/24 Precautions Precautions Possible ETOH, falls, PAD, pacemaker, almost complete occlusion of left carotid, sarcoidosis and 50% lung capacity. Consider checking O2 sats and BP and HR with exertional activities. 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 Pt had a bad fall 12/09/23 and hit his face, broke his left orbital bone and had surgery in [place]. He also hurt his right knee and had an orthopedist look at it. Right knee x-ray is negative. Pt states that he had a vodka tonic last night and it was his only drink. He reports only one fall this year and it was in December. He has a cane and does not use it. 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 Pt reports light-headedness when he stands up. Since he had his fall, he has not been working out like he used to do and he feels like his leg strength has diminished. Pt also reports history of sarcoidosis and 50% lung capacity. Treatment Goals Patient/Caregiver Goals Improve balance PT-OP-C Subjective Start: 03/15/24 10:13 Freq: Status: Active Protocol: Document 03/23/24 08:58 MB (Rec: 03/23/24 09:40 MB [id number]) OP-PT Subjective Patient Comments Patient Comments Pt is practicing using his cane in his right hand. No new reports or complaints. PT-OP-D Balance Start: 03/15/24 10:13 Freq: Status: Active Protocol: Document 03/18/24 09:03 MB (Rec: 03/18/24 11:43 MB [id number]) Balance Tests Romberg Romberg RADIO INSTALLER to get into position and to maintain PT-OP-G Mobility & Gait Start: 03/15/24 10:13 Freq: Status: Active Protocol: Document 03/18/24 09:03 MB (Rec: 03/18/24 11:43 MB [id number]) OP Gait Assessment Comments Gait Comments Wide STEFFEN and decreased heel strike and push off B with increased Miguel angle right foot and functional foot drop appearance right foot. Pt reports B neuropathy and recent right knee injury when he fell. He has a cane at home but is not currently using it . PT-OP-M Strength Start: 03/15/24 10:13 Freq: Status: Active Protocol: Document 03/18/24 09:03 MB (Rec: 03/18/24 11:43 MB [id number]) Hip Strength Hip Manual Muscle Testing Bilateral Flexion (L2) 3+ Fair+ Comments Performed all MMT in sitting today Knee Strength Knee Manual Muscle Testing Bilateral Flexion (S2) 5 Normal Extension (L3) 5 Normal Comments Bump area over right patella under skin Ankle/Foot Strength Ankle and Foot Manual Muscle Testing Left Dorsiflexion (L4) 2+ Poor+ Right Dorsiflexion (L4) 3- Fair- Comments Right foot and ankle appear weaker functionally with gait compared to the left Toe Strength Toe Manual Muscle Testing Left Great Toe Extension 3+ Fair+ Right Great Toe Extension 3+ Fair+ PT-OP-Q Treatments Start: 03/15/24 10:13 Freq: Status: Active Protocol: Document 03/23/24 08:58 MB (Rec: 03/23/24 09:40 MB [id number]) Gait Training Gait Activity 6MWT Comments Cane in right hand and FULLER with dyspnea scale 1/4 and pt needing to stop gait, fingers cold and pulse-ox reading does not read, right distal leg shaking and pt cannot walk further. Gait trains 346 feet in 6 minutes Gait training with SPC Comments Performed again today and pt needs to carry in right hand, PT lowers his cane one level Neuro Re-Education Treatment Balance Activities TUG Comments 20 sec, use of cane in right hand Self-Care/Home Management Treatment Education Other Education See orthostatic findings below . Provided education and handouts about orthostatic hypotension, things to do and things not to do, encouragement to take reading to community service officer coordinator when pt sees him today to review numbers and recommendations, especially in setting of PAD. Wrote note for possible doppler UEs given cold fingers with gait and PT cannot get O2 sat reading and history of trouble getting BP LUE per pt report PT-OP-T Assessment and Plan Start: 03/15/24 10:13 Freq: Status: Active Protocol: Document 03/23/24 08:58 MB (Rec: 03/23/24 09:40 MB [id number]) Physical Therapy Assessment Rehab Potential Rehabilitation Potential Fair Evaluation Complexity Number of Personal Factors/Comorbidities 1-2 Number of Body Systems Impaired 3 Clinical Presentation at Evaluation Evolving Impairments Impairments Activity Tolerance,Balance, Coordination,Functional Activities,Functional Mobility ,Gait,Posture,ROM,Sensation, Soft Tissue Mobility,Strength, Transfers,Vestibular Other Concerns Fall Risk Yes Goals 4 Impairment Lack of HEP Custodial Goal (LTG) Pt will perform progressive HEP with I including strengthening, balance, gait and flexibility exercises. LTG Duration 5 weeks 3 Impairment Poor gait tolerance Custodial Goal (LTG) Pt will gait train at least 1200 in 6 minutes with use of cane to improve community ambulation and safety. LTG Duration 5 weeks 2 Impairment Decreased gait speed Custodial Goal (LTG) Pt will perform TUG with cane in no more than 10 sec to improve gait speed and to decrease fall risk. LTG Duration 5 weeks 1 Impairment Evidence of imbalance Custodial Goal (LTG) Pt will perform WNLs on Tinetti with use of SPC to decrease fall risk. LTG Duration 5 weeks Assessment Summary Assessment Orthostatic assessment with BP and HR in right UE: supine 124/74, 116 (pt with a-fib); standing 97/51, 63 standing 1' 102/46, 140 (a-fib); standing 2' 129/67, 148 (a-fib). Radial HR is not easily palpable. Sitting O2 sats right index finger: 92%, HR 45 BPM. Pt has poor tolerance to 6MWT and stops gait after less than 3' of walking d/t FULLER and right leg shaking. His fingers are cold and PT cannot get a good O2 sats reading. TUG requires 20 sec today and he uses cane in right UE. Overall, pt presents with LE neuropathy and poor cardiac perfusion as well as reports of lung disease. Will con't to montior vitals as progress balance exercises. Physical Therapy Plan Frequency and Duration Frequency of Treatment 1-2x/wk Duration of treatment (weeks) 5 Plan of Care Start Date 03/18/24 Plan of Care End Date 05/01/24 Therapeutic Interventions Therapeutic Interventions Balance Training,Canalithic Repositioning,Coordination Training,Gait Training,Home Exercise Program,Joint Mobilizations,Manual Therapy, Neuromuscular Re-education, Patient/Caregiver Education, Self-Care/Home Management,Soft Tissue Mobilization,Taping, Therapeutic Activities, Therapeutic Exercises, Vestibular Rehabilitation Modalities Cold Pack/Ice Massage,Hot Packs Next Visit Focus/Plan Next Note Type Treatment Note Next Visit Plan Ashley Lopez program
--- NOTE | 2024-03-25 10:47 | PT.OTN ---
Current Diagnoses Unspecified abnormalities of gait and mobility (03/25/24) Physical Therapy Treatment Note PT-OP-A Visit Information Start: 03/15/24 10:13 Freq: Status: Active Protocol: Document 03/25/24 10:31 MB (Rec: 03/25/24 10:46 MB [id number]) Out-Patient Physical Therapy Visit Information Visit Information Visit Type Treatment Note Visit Note Medicare Visit Start Time 10:31 Visit Stop Time 10:41 Visit Number 3 Number of DAY PORTER Visits 0 Evaluation Information Evaluation Date 03/18/24 Precautions Precautions Possible ETOH, falls, PAD, pacemaker, almost complete occlusion of left carotid, sarcoidosis and 50% lung capacity. Consider checking O2 sats and BP and HR with exertional activities. 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 Pt had a bad fall 12/09/23 and hit his face, broke his left orbital bone and had surgery in [place]. He also hurt his right knee and had an orthopedist look at it. Right knee x-ray is negative. Pt states that he had a vodka tonic last night and it was his only drink. He reports only one fall this year and it was in December. He has a cane and does not use it. 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 Pt reports light-headedness when he stands up. Since he had his fall, he has not been working out like he used to do and he feels like his leg strength has diminished. Pt also reports history of sarcoidosis and 50% lung capacity. Treatment Goals Patient/Caregiver Goals Improve balance PT-OP-C Subjective Start: 03/15/24 10:13 Freq: Status: Active Protocol: Document 03/25/24 10:31 MB (Rec: 03/25/24 10:46 MB [id number]) OP-PT Subjective Patient Comments Patient Comments Pt states that he picked up a little cold. He went to his children's attendant after PT and he ordered a nuclear high definition test of his lungs and he has not heard the results. 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 PT-OP-D Balance Start: 03/15/24 10:13 Freq: Status: Active Protocol: Document 03/18/24 09:03 MB (Rec: 03/18/24 11:43 MB [id number]) Balance Tests Romberg Romberg SURGICAL SUPPLIES STERILIZER to get into position and to maintain PT-OP-G Mobility & Gait Start: 03/15/24 10:13 Freq: Status: Active Protocol: Document 03/18/24 09:03 MB (Rec: 03/18/24 11:43 MB [id number]) OP Gait Assessment Comments Gait Comments Wide STEFFEN and decreased heel strike and push off B with increased Miguel angle right foot and functional foot drop appearance right foot. Pt reports B neuropathy and recent right knee injury when he fell. He has a cane at home but is not currently using it . PT-OP-M Strength Start: 03/15/24 10:13 Freq: Status: Active Protocol: Document 03/18/24 09:03 MB (Rec: 03/18/24 11:43 MB [id number]) Hip Strength Hip Manual Muscle Testing Bilateral Flexion (L2) 3+ Fair+ Comments Performed all MMT in sitting today Knee Strength Knee Manual Muscle Testing Bilateral Flexion (S2) 5 Normal Extension (L3) 5 Normal Comments Bump area over right patella under skin Ankle/Foot Strength Ankle and Foot Manual Muscle Testing Left Dorsiflexion (L4) 2+ Poor+ Right Dorsiflexion (L4) 3- Fair- Comments Right foot and ankle appear weaker functionally with gait compared to the left Toe Strength Toe Manual Muscle Testing Left Great Toe Extension 3+ Fair+ Right Great Toe Extension 3+ Fair+ PT-OP-Q Treatments Start: 03/15/24 10:13 Freq: Status: Active Protocol: Document 03/25/24 10:31 MB (Rec: 03/25/24 10:46 MB [id number]) Gait Training Gait Activity Gait training with SPC Comments Pt is gait training better with cane in right hand, con't with right greater than left leg weakness Self-Care/Home Management Treatment Education Other Education Education about benefits of discharging PT at this time given poor tolerance to 6MWT last treatment date and in setting of cardiac issues with calcified aorta PT-OP-T Assessment and Plan Start: 09/08/24 10:13 Freq: Status: Active Protocol: Document 03/25/24 10:31 MB (Rec: 03/25/24 10:46 MB [id number]) Physical Therapy Assessment Rehab Potential Rehabilitation Potential Fair Evaluation Complexity Number of Personal Factors/Comorbidities 1-2 Number of Body Systems Impaired 3 Clinical Presentation at Evaluation Evolving Impairments Impairments Activity Tolerance,Balance, Coordination,Functional Activities,Functional Mobility ,Gait,Posture,ROM,Sensation, Soft Tissue Mobility,Strength, Transfers,Vestibular Other Concerns Fall Risk Yes Goals 4 Impairment Lack of HEP Supervisor Denture Department Goal (LTG) Pt will perform progressive HEP with I including strengthening, balance, gait and flexibility exercises. LTG Duration 5 weeks 3 Impairment Poor gait tolerance Supervisor Denture Department Goal (LTG) Pt will gait train at least 1200 in 6 minutes with use of cane to improve community ambulation and safety. LTG Duration 5 weeks 2 Impairment Decreased gait speed Supervisor Denture Department Goal (LTG) Pt will perform TUG with cane in no more than 10 sec to improve gait speed and to decrease fall risk. LTG Duration 5 weeks 1 Impairment Evidence of imbalance Supervisor Denture Department Goal (LTG) Pt will perform WNLs on Tinetti with use of SPC to decrease fall risk. LTG Duration 5 weeks Assessment Summary Assessment PT is unable to see results of cardiac test earlier this week d/t it was done at [facility] : pt communicates it is a high definition CAT scan of lungs. He also reports calcified aorta. Pt had trouble with 6MWT last date and PT is concerned about cardiac presentation with regard to progressing OPPT. PT and pt agree to d/c PT at this time until they figure out his cardiac treatment course. He might benefit from cardiac rehab in the future. Physical Therapy Plan Frequency and Duration Frequency of Treatment 1-2x/wk Duration of treatment (weeks) 5 Plan of Care Start Date 03/18/24 Plan of Care End Date 05/01/24 Therapeutic Interventions Therapeutic Interventions Balance Training,Canalithic Repositioning,Coordination Training,Gait Training,Home Exercise Program,Joint Mobilizations,Manual Therapy, Neuromuscular Re-education, Patient/Caregiver Education, Self-Care/Home Management,Soft Tissue Mobilization,Taping, Therapeutic Activities, Therapeutic Exercises, Vestibular Rehabilitation Modalities Cold Pack/Ice Massage,Hot Packs Next Visit Focus/Plan Next Note Type Treatment Note Next Visit Plan Ashley Lopez program
== END 2024-03-31 12:43 | disposition home or self-care (01) ==
LOC: PHYS 10:30
PROVIDERS: Family Provider Internal Medicine; PCP Internal Medicine; Referring Provider Internal Medicine; Visit Provider Internal Medicine
DX: R26.9 Unspecified abnormalities of gait and mobility (principal)
CPT/HCPCS: 97116; 97162; 97535

== ENCOUNTER 2024-04-14 11:28 | Emergency (ER) | payer MEDICARE, OTHER, SELFPAY ==
[2024-04-14] VITALS (20 sets, daily range): BP systolic 90–146; BP diastolic 64–90; PULSE 92–136; RESP 22–36; TEMP 36.7; O2SAT 83–97; BMI 27.2
--- NOTE | 2024-04-14 11:45 | EKG_ITS ---
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
--- NOTE | 2024-04-14 11:45 | DI.RAD.S_ITS ---
PROCEDURE: XR CHEST 1V INDICATIONS: Shortness of breath TECHNIQUE: One view of the chest was acquired. COMPARISON: [facility], CT, CT HIGH RESOLUTION CHEST, 03/24/2024, 16:49. [facility], CR, XR CHEST 2V, 02/27/2021, 11:06. FINDINGS: Surgical changes and devices: Left-sided cardiac pacer. Lungs and pleura: Left perihilar opacification. No pleural effusions or pneumothorax. Mediastinum: Mediastinal contours appear normal. Heart size is normal. Bones and chest wall: No suspicious bony lesions. Overlying soft tissues appear unremarkable. IMPRESSION: Left perihilar atelectasis or pneumonia. Dictated by: Dina Arnold MD, PhD on 04/14/2024 at 12:14 Approved by: Dina Arnold MD, PhD on 04/14/2024 at 12:17
[2024-04-14 12:03] LABS: Add Manual Diff / Slide Review NO; Basophils Absolute Auto 100 /uL (0-100); Basophils Percent Auto 1.4 % (0-2); Eosinophils Absolute Auto 100 /uL (0-450); Eosinophils Percent Auto 1.1 % (2-4); Hematocrit 47.7 % (41-53); Hemoglobin 15.9 g/dL (13.5-17.5); Lymphocytes Absolute Auto 1300 /uL (1100-4500); Lymphocytes Percent Auto 13.6 % (25-40); Mean Corpuscular HGB Conc 33.4 % (30-36); Mean Corpuscular Hemoglobin 33.8 PG (26-34); Mean Corpuscular Volume 101.3 fL (80-100); Monocytes Absolute Auto 900 /uL (0-900); Monocytes Percent Auto 9.1 % (3-14); Neutrophils Absolute Auto 7100 /uL (1500-7000); Neutrophils Percent Auto 74.8 % (50-75); Platelet Count 220 X10^3/uL (150-400); Red Blood Cell Count 4.71 X10^6/uL (4.5-5.9); Red Cell Distribution Width 15.7 % (11.6-14.8); White Blood Cell Count 9.5 X10^3/uL (4.5-11.0)
[2024-04-14 12:16] LABS: INR 1.2 (0.9-1.3); Prothrombin Time 13.6 SECONDS (9.4-12.5)
[2024-04-14 12:26] LABS: Alanine Aminotransferase 26 IU/L (<50); Albumin 3.8 g/dL (3.5-5.0); Albumin Globulin Ratio 1.2 (1.0-2.8); Alkaline Phosphatase 170 U/L (38-126); Aspartate Aminotransferase 38 IU/L (17-59); Bilirubin Total 1.3 mg/dL (0.2-1.3); Blood Urea Nitrogen 12 mg/dL (9-20); Calcium 9.2 mg/dL (8.4-10.2); Carbon Dioxide 31 mmol/L (22-32); Chloride 94 mmol/L (98-107); Estimated Glomerular Filt Rate > 60 mL/min (>60); Globulin 3.2 g/dL (1.7-4.1); Glucose 122 mg/dL (80-110); HEMOLYSIS < 15 (0-50); Lactate (Lactic Acid) 2.7 mmol/L (0.7-2.1); Potassium 4.1 mmol/L (3.4-5.1); Sodium 134 mmol/L (137-145)
[2024-04-14 12:37] LABS: NT-proBNP (BNP-Adult 18+) 7640 pg/mL (<450); Troponin I < 0.012 ng/mL (0.01-0.034)
--- NOTE | 2024-04-14 13:21 | ED_ITS ---
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 Denies chest pain. Denies syncope or presyncope symptoms, denies dizziness. No fevers or chills. Related Data Home Medications Medication Instructions Recorded Confirmed aspirin 81 mg tablet,delayed 81 mg PO DAILY 04/14/19 01/13/24 release Vitamin B12 1 tab PO DAILY 01/13/24 cholecalciferol (vitamin D3) 50 50 mcg PO DAILY 01/13/24 01/13/24 mcg (2,000 unit) capsule hydrochlorothiazide 25 mg tablet 25 mg PO DAILY 01/13/24 01/13/24 metoprolol succinate 100 mg 100 mg PO DAILY 01/13/24 01/13/24 tablet,extended release 24 hr Previous Rx's Medication Instructions Recorded nitroglycerin 0.4 mg sublingual 0.4 mg sublingual PRN PRN chest 02/27/21 tablet (Nitrostat) pain #100 tabs Disabled Parking #1 ea 01/05/22 betamethasone dipropionate 0.05 % 1 applic topical DAILY PRN rash 10/07/23 lotion #60 mL chlordiazepoxide HCl 25 mg capsule See Rx Instructions .Route 01/13/24 .COMPLEX #20 caps trazodone 50 mg tablet 50 mg PO BEDTIME #90 tabs 01/16/24 atorvastatin 20 mg tablet 20 mg PO DAILY #90 tabs 02/13/24 cefdinir 300 mg capsule 300 mg PO BID 10 days #20 caps 04/14/24 doxycycline hyclate 100 mg capsule 100 mg PO BID #20 caps 04/14/24 Allergies Allergy/AdvReac Type Severity Reaction Status Date / Time pregabalin [From Lyrica] AdvReac wooziness Verified 01/13/24 15:05 Review of Systems Review of Systems Narrative: see HPI Patient History Medical History (Updated 04/14/24 @ 15:11 by Saleem Xiao MD) Alcohol dependence Hypersensitivity pneumonitis Fever (~2009) Mumps Measles Chicken pox GI bleed (~2014) Pacemaker (~2014) Presence of Watchman left atrial appendage closure device (~02/2020) Peripheral vascular disease Subdural hematoma (~02/2016) Mixed hyperlipidemia (02/12/11) Hypertension, essential (02/12/11) Vision disorder Peripheral neuropathy (~2011) Psoriasis (~1989) Hearing loss (~2014) Pacemaker (~2011) Atrial fibrillation (~2011) Skin cancer (~2012) Surgical History Anesthesia Surgical procedure planned (~2013) Status post insertion of iliac artery stent (~2012) History of heart artery stent (~2014) Status post rotator cuff repair (~2013) Status post rotator cuff repair (~2012) Presence of cardiac pacemaker (~2011) Family History Mother Esophageal cancer Father No problems noted. Brother COVID Grandfather Appendicitis Social History Smoking Status: Former smoker Smoking Status: Former smoker alcohol intake frequency: 0-2 drinks per day Substance Use Type: does not use Exam Narrative Exam Narrative: GENERAL: Well-developed patient, in mild distress. HEAD: Atraumatic. Normocephalic. EYES: Pupils equal round and reactive. Extraocular motions intact. No scleral icterus. No injection or drainage. ENT: Nose without bleeding, purulent drainage. Throat without erythema, tonsillar hypertrophy or exudate. Airway patent. NECK: Trachea midline. Non tender CARDIOVASCULAR: Irregularly irregular rhythm without murmurs, gallops, or rubs. RESPIRATORY: Clear to auscultation. Breath sounds equal bilaterally. No wheezes, rales, or rhonchi. GASTROINTESTINAL: Abdomen soft, non-tender, nondistended. EXTREMITIES: No edema or joint tenderness. BACK: Nontender without deformity or crepitance. No flank tenderness. NEURO: AOx3. Motor functions grossly nonfocal SKIN: No rash or erythema of visible areas Initial Vital Signs Initial Vital Signs: Vital Signs Temperature 98.1 F 04/14/24 11:30 Pulse Rate 136 H 04/14/24 11:30 Respiratory Rate 26 H 04/14/24 11:30 Blood Pressure 112/71 04/14/24 11:30 Pulse Oximetry 85 L 04/14/24 11:30 Oxygen Delivery Method Room Air 04/14/24 11:30 Course Orders Ordered: ED Orders 04/14/24 11:45 XR chest 1V Stat EKG-12 Lead Stat Measure peak expiratory flow ONCE RT Consult Eval and Treat NOW 04/14/24 11:55 Complete Blood Count AUTO DIFF Stat Comprehensive Metabolic Panel Stat Lactate (Lactic Acid) Stat NT-proBNP (BNP-Adult 18+) Stat Prothrombin Time INR Stat Troponin I Stat 04/14/24 13:55 Troponin I Stat 04/14/24 14:23 Blood Culture Stat Discontinued Medications Doxycycline Hyclate (Doxycycline Hyclate 100 Mg Tablet) 100 mg PO NOW ONE Stop: 04/14/24 13:38 Last Admin: 04/14/24 14:10 Dose: 100 mg Documented By: STEPHANIE Ceftriaxone Sodium 1,000 mg/ (Sodium Chloride) 100 mls @ 200 mls/hr IV NOW ONE Stop: 04/14/24 13:38 Last Infusion: 04/14/24 16:47 Dose: Infused Documented By: Admin: 04/14/24 14:10 Dose: 200 mls/hr Documented By: STEPHANIE Sodium Chloride (Normal Saline 0.9%) 1,000 mls @ 250 mls/hr IV BOLUS ONE Stop: 04/14/24 18:49 Last Infusion: 04/14/24 16:46 Dose: Infused Documented By: Admin: 04/14/24 15:01 Dose: 250 mls/hr Documented By: Vital Signs Vital signs: Vital Signs - 8 hr 04/14/24 12:30 04/14/24 12:30 04/14/24 12:30 Pulse Rate 123 H 124 H Respiratory Rate 22 32 H Blood Pressure 132/75 133/69 Pulse Oximetry 94 96 Oxygen Delivery Method Nasal Cannula Oxygen Flow Rate 2 04/14/24 12:45 04/14/24 12:45 04/14/24 13:00 Pulse Rate 121 H Respiratory Rate 33 H Blood Pressure 132/75 128/74 Pulse Oximetry 95 Oxygen Delivery Method Oxygen Flow Rate 04/14/24 13:00 04/14/24 13:03 04/14/24 13:15 Pulse Rate 122 H 110 H Respiratory Rate 33 H 22 Blood Pressure 128/74 134/78 Pulse Oximetry 94 95 Oxygen Delivery Method Nasal Cannula Oxygen Flow Rate 2 04/14/24 13:15 04/14/24 13:30 04/14/24 13:30 Pulse Rate 120 H 119 H Respiratory Rate 33 H 30 H Blood Pressure 146/90 H Pulse Oximetry 95 93 Oxygen Delivery Method Oxygen Flow Rate 04/14/24 13:58 04/14/24 13:58 04/14/24 14:00 Pulse Rate 119 H 105 H Respiratory Rate 28 H 34 H Blood Pressure 91/69 Pulse Oximetry 94 95 Oxygen Delivery Method Oxygen Flow Rate 04/14/24 14:00 04/14/24 14:15 04/14/24 14:15 Pulse Rate 113 H Respiratory Rate 33 H Blood Pressure 96/68 95/70 Pulse Oximetry 90 L Oxygen Delivery Method Oxygen Flow Rate 04/14/24 14:30 04/14/24 14:30 04/14/24 15:00 Pulse Rate 102 H 103 H Respiratory Rate 33 H 31 H Blood Pressure 99/77 Pulse Oximetry 88 L Oxygen Delivery Method Oxygen Flow Rate 04/14/24 15:05 04/14/24 15:05 04/14/24 15:30 Pulse Rate 101 H 97 H Respiratory Rate 33 H 29 H Blood Pressure 94/70 Pulse Oximetry 97 94 Oxygen Delivery Method Oxygen Flow Rate 04/14/24 15:30 04/14/24 16:00 04/14/24 16:00 Pulse Rate 92 H Respiratory Rate 33 H Blood Pressure 100/69 102/69 Pulse Oximetry 92 Oxygen Delivery Method Oxygen Flow Rate 04/14/24 16:30 Pulse Rate 120 H Respiratory Rate 36 H Blood Pressure Pulse Oximetry 90 L Oxygen Delivery Method Oxygen Flow Rate Medical Decision Making Lab Data Lab results reviewed: Yes I reviewed the patient's lab results. Lab results narrative: White blood cell count 9500, hemoglobin 15, platelets adequate. BNP unremarkable. 04/14/24 11:55 04/14/24 11:55 Labs: Lab Results 04/14/24 04/14/24 Range/Units 11:55 13:55 WBC 9.5 (4.5-11.0) X10^3/uL RBC 4.71 (4.5-5.9) X10^6/uL Hgb 15.9 (13.5-17.5) g/dL Hct 47.7 (41-53) % MCV 101.3 H (80-100) fL MCH 33.8 (26-34) PG MCHC 33.4 (30-36) % RDW 15.7 H (11.6-14.8) % Plt Count 220 (150-400) X10^3/uL Neut % (Auto) 74.8 (50-75) % Lymph % (Auto) 13.6 L (25-40) % [place] % (Auto) 9.1 (3-14) % Eos % (Auto) 1.1 L (2-4) % Baso % (Auto) 1.4 (0-2) % Neut # (Auto) 7100 H (1756-9969) /uL Lymph # (Auto) 1300 (4640-6609) /uL [place] # (Auto) 900 (0-900) /uL Eos # (Auto) 100 (0-450) /uL Baso # (Auto) 100 (0-100) /uL PT 13.6 H (9.4-12.5) SECONDS INR 1.2 (0.9-1.3) Sodium 134 L (137-145) mmol/L Potassium 4.1 (3.4-5.1) mmol/L Chloride 94 L (98-107) mmol/L Carbon Dioxide 31 (22-32) mmol/L BUN 12 (9-20) mg/dL Creatinine 1.20 (0.66-1.25) mg/dL Estimated GFR > 60 (>60) mL/min BUN/Creatinine Ratio 10.0 (6-22) Glucose 122 H (80-110) mg/dL Lactate 2.7 H 1.4 (0.7-2.1) mmol/L Calcium 9.2 (8.4-10.2) mg/dL Total Bilirubin 1.3 (0.2-1.3) mg/dL AST 38 (17-59) IU/L ALT 26 (<50) IU/L Alkaline Phosphatase 170 H (38-126) U/L Troponin I < 0.012 < 0.012 (0.01-0.034) ng/mL NT-Pro-B Natriuret Pep 7640 H (<450) pg/mL Total Protein 7.0 (6.3-8.2) g/dL Albumin 3.8 (3.5-5.0) g/dL Globulin 3.2 (1.7-4.1) g/dL Albumin/Globulin Ratio 1.2 (1.0-2.8) ECG Data Attestation: I personally reviewed and interpreted this ECG as follows: Interpretation: Atrial fibrillation with ventricular response rate 117, no obvious ST segment elevation or depression changes. QRS 98, QTC 440. MDM Narrative Medical decision making narrative: 79-year-old male with history of atrial fibrillation on aspirin, prior Watchman procedure, no other anticoagulation, with history of aortic calcific valve problem awaiting percutaneous surgery to be scheduled at [facility], now with 7 days' duration of productive cough, increasing shortness of breath. No crackles or wheezes on examination. Afebrile, sirs screen negative. Atrial fibrillation noted with variable ventricular response 90-120 range. Initial systolic blood pressure 128/74 noted, afebrile, not usually on oxygen, 85% room air sat noted with good plaque, 95% sat on 2 L nasal cannula oxygen. DDx consider pneumonia, COVID, upper respiratory infection with bronchospasm, congestive heart failure, heart failure related to atrial fibrillation, other. Chest x-ray shows possible left-sided pneumonia versus atelectasis. Blood cultures requested. Initial lactate elevated. Initial BNP also elevated. History of aortic valve problem awaiting surgery, we will not use diuresis for now. We will add IV ceftriaxone and oral doxycycline for community-acquired pneumonia coverage. Repeat lactate normal. Patient not usually on oxygen, now on 2 L. PCP Lesley, we will consult for possible admission. History of aortic valve problem noted, might need higher level of care, possible transfer versus admission. 1500, case discussed with PCP Dr. Sutton, who was able to locate records, recent echocardiogram February 2024 showed critical aortic stenosis with valve area 0.9 cm. He agrees with potential need for higher level of care, that might involve Cardiothoracic surgery, Cardiology, in the setting of new hypoxia and recent respiratory illness/pneumonia, awaiting aortic valve surgery with soft blood pressures. Feedback relayed to patient. We will contact [facility] who knows patient, if they have capacity to accept patient for transfer. 1510, case discussed with patient further, who relayed that he does not want to be admitted here or to be transferred, and wants to go home now, advised that he should really be on oxygen, and even then will be discharged against medical advice. We discussed risks of further blood pressure worsening, weakness, falls, injury, worsening heart failure, cardiac failure, even . He persists in his desire to be discharged home on oxygen at this time, we will send antibiotics to his pharmacy. Advised close follow with PCP Dr. Sutton. Return precautions discussed. Home oxygen arranged for discharge 2-lpm per CT, Rx further antibiotics sent to his pharmacy. Advised to follow-up with PCP tomorrow. Left AMA Discharge Plan Departure Patient Disposition: Left Against Medical Advice Clinical Impression: Pneumonia, Hypoxia, History of aortic valvular stenosis, History of atrial fibrillation, Left against medical advice Activity Restrictions/Additional Instructions: Discharged against medical advice History of atrial fibrillation, prior Watchman procedure, on aspirin oral anticoagulation, with mildly increased ventricular heart rate response due to atrial fibrillation, recent cough, increased shortness of breath, new oxygen requirement on 2 L oxygen, room-air saturation 85% on triage noted. Chest x-ray suspicious for pneumonia. Initial antibiotics given after blood cultures. Consider admission, consider transfer. Case discussed with Dr. Sutton your primary care provider, who advised higher level of care given your aortic stenosis and pneumonia and soft blood pressure readings. You did not want to be transferred. You did not want to be admitted here. You requested to be discharged here now. You are advised that you could worsen in your clinical status, become weak, fall, sustaining injury, have loss of independence, even theoretically due to decompensation of your problems above. Further antibiotics sent to your pharmacy to take for pneumonia treatment. Follow up advised tomorrow with your regular doctor Lesley. You can return to this/nearest emergency department for any change worsening symptoms or any concerns prior Prescriptions: New cefdinir 300 mg capsule 300 mg PO BID 10 Days Qty: 20 0RF doxycycline hyclate 100 mg capsule 100 mg PO BID Qty: 20 0RF No Action betamethasone dipropionate 0.05 % lotion 1 applic topical DAILY PRN (Reason: rash) Qty: 60 5RF trazodone 50 mg tablet 50 mg PO BEDTIME Qty: 90 3RF atorvastatin 20 mg tablet 20 mg PO DAILY Qty: 90 3RF nitroglycerin [Nitrostat] 0.4 mg tablet, sublingual 0.4 mg Sublingual PRN PRN (Reason: chest pain) Qty: 100 5RF (DME) Disabled Parking See Rx Instructions .ROUTE .MEDSUPPLY Qty: 1 0RF Rx Instructions: Patient qualifies for disabled parking as per the attached form. metoprolol succinate 100 mg tablet extended release 24 hr 100 mg PO DAILY hydrochlorothiazide 25 mg tablet 25 mg PO DAILY Vitamin B12 2,000 mg 1 tab PO DAILY cholecalciferol (vitamin D3) 50 mcg (2,000 unit) capsule 50 mcg PO DAILY chlordiazepoxide HCl 25 mg capsule See Rx Instructions .ROUTE .COMPLEX Qty: 20 0RF Rx Instructions: take one twice a day for 5 days, then one once a day for 5 days, then one every other day for 4 doses (8 days), then stop aspirin 81 mg tablet,delayed release (DR/EC) 81 mg PO DAILY Referrals: Aldo Sutton MD [Primary Care Provider] - Stand Alone Forms: Patient Portal/API, Against Medical Advice
[2024-04-14 13:31] LABS: Reflexed Lactate in 2 Hours Y
[2024-04-14] MEDS: DOXYCYCLINE HYCLATE 100 MG TABLET PO (14:10)
[2024-04-14] MEDS: cefTRIAXone 1,000 MG in SODIUM CHLORIDE 0.9% 100 ML 200 MG IV (14:10)
[2024-04-14 14:16] LABS: Lactate 2HR (Lactic Acid Rflx) 1.4 mmol/L (0.7-2.1)
[2024-04-14 14:29] LABS: Troponin I < 0.012 ng/mL (0.01-0.034)
[2024-04-14] MEDS: SODIUM CHLORIDE 0.9% 1,000 ML 250 ML IV (15:01)
== END 2024-04-14 16:39 | disposition left against medical advice (07) ==
LOC: ED 11:47 → AC 14:54
PROVIDERS: Emergency Provider Emergency Medicine; Family Provider Internal Medicine; PCP Internal Medicine
DX: J18.9 Pneumonia, unspecified organism (principal); I48.91 Unspecified atrial fibrillation; R09.02 Hypoxemia; Z53.29 Procedure and treatment not carried out because of patient's decision for other reasons; Z86.79 Personal history of other diseases of the circulatory system; Z95.818 Presence of other cardiac implants and grafts; Z87.891 Personal history of nicotine dependence
CPT/HCPCS: 36415; 71045; 80053; 83605; 83880; 84484; 85025; 85610; 87040; 93005; 93010; 96365; 96366; 99285; J0696

== ENCOUNTER 2024-04-22 18:19 | Emergency (ER) | payer MEDICARE, OTHER, SELFPAY ==
[2024-04-22] VITALS (17 sets, daily range): BP systolic 82–134; BP diastolic 57–82; PULSE 81–132; RESP 18–44; TEMP 36.7; O2SAT 83–95; BMI 27.2
--- NOTE | 2024-04-22 18:37 | DI.RAD.S_ITS ---
PROCEDURE: XR CHEST 1V INDICATIONS: SOB TECHNIQUE: One view of the chest was acquired. COMPARISON: [facility], CT, CT HIGH RESOLUTION CHEST, 03/24/2024, 16:49. [facility], CR, XR CHEST 1V, 04/14/2024, 11:47. FINDINGS: Surgical changes and devices: Cardiac pacemaker is seen with pulse generator in the left chest. Lungs and pleura: Low lung volumes are seen bilaterally with diffuse interstitial prominence. No focal consolidative opacity No pleural effusion or pneumothorax. Mediastinum: Mediastinal contours appear normal. Heart size is normal. Bones and chest wall: No suspicious bony lesions. Overlying soft tissues appear unremarkable. IMPRESSION: Bilateral low lung volumes and interstitial prominence are consistent with chronic interstitial lung disease as previously seen. No acute consolidation. Approved by: Prateek Benton M.D. on 04/22/2024 at 20:07
[2024-04-22 18:52] LABS: Add Manual Diff / Slide Review NO; Basophils Absolute Auto 100 /uL (0-100); Basophils Percent Auto 0.5 % (0-2); Eosinophils Absolute Auto 100 /uL (0-450); Eosinophils Percent Auto 1.2 % (2-4); Hematocrit 46.5 % (41-53); Hemoglobin 15.2 g/dL (13.5-17.5); Lymphocytes Absolute Auto 1500 /uL (1100-4500); Lymphocytes Percent Auto 14.7 % (25-40); Mean Corpuscular HGB Conc 32.8 % (30-36); Mean Corpuscular Hemoglobin 33.7 PG (26-34); Mean Corpuscular Volume 102.7 fL (80-100); Monocytes Absolute Auto 1200 /uL (0-900); Monocytes Percent Auto 11.4 % (3-14); Neutrophils Absolute Auto 7500 /uL (1500-7000); Neutrophils Percent Auto 72.2 % (50-75); Platelet Count 218 X10^3/uL (150-400); Red Blood Cell Count 4.52 X10^6/uL (4.5-5.9); Red Cell Distribution Width 15.8 % (11.6-14.8); White Blood Cell Count 10.4 X10^3/uL (4.5-11.0)
[2024-04-22 18:54] LABS: Alanine Aminotransferase 26 IU/L (<50); Albumin 3.6 g/dL (3.5-5.0); Albumin Globulin Ratio 1.1 (1.0-2.8); Alkaline Phosphatase 197 U/L (38-126); Aspartate Aminotransferase 50 IU/L (17-59); BUN Creatinine Ratio 9.7 (6-22); Blood Urea Nitrogen 11 mg/dL (9-20); Calcium 9.5 mg/dL (8.4-10.2); Carbon Dioxide 30 mmol/L (22-32); Chloride 93 mmol/L (98-107); Creatine Kinase 26 U/L (55-170); Estimated Glomerular Filt Rate > 60 mL/min (>60); Globulin 3.2 g/dL (1.7-4.1); Glucose 122 mg/dL (80-110); HEMOLYSIS < 15 (0-50); Lipase 46 U/L (23-300); Potassium 4.3 mmol/L (3.4-5.1); Sodium 133 mmol/L (137-145); Total Protein 6.8 g/dL (6.3-8.2)
--- NOTE | 2024-04-22 18:56 | ED.GENADULT ---
HPI - General Adult General Chief complaint: Shortness of Breath/Dyspnea Stated complaint: SOB Time Seen by Provider: 04/22/24 18:27 Source: patient, family and EMS Mode of arrival: EMS Limitations: no limitations History of Present Illness HPI narrative: Patient is a 79-year-old male with a history of aortic stenosis/aortic calcification, atrial fibrillation status post watchman placement and not on anticoagulation, hypertension, sarcoid he was seen here in this emergency department several days ago. Was found to be hypoxic however after being on oxygen decided that he did not want to be admitted to the hospital. Was subsequently discharged home. We were able to set up home oxygen for him through the emergency department but he states that since he left to go home and specifically over the past 24 hours he was had an increase in the amount of shortness of breath and dyspnea on exertion. Denies chest pain. No abdominal pain. Is having lower extremity edema. No cough, fevers. He has been taking all of his medications as directed. He was not on a diuretic. This evening when his symptoms were not getting better despite using the oxygen at home EMS was called to bring him back for further evaluation. Related Data Home Medications Medication Instructions Recorded Confirmed aspirin 81 mg tablet,delayed 81 mg PO DAILY 04/14/19 04/21/24 release Vitamin B12 1 tab PO DAILY 01/13/24 04/21/24 cholecalciferol (vitamin D3) 50 50 mcg PO DAILY 01/13/24 04/21/24 mcg (2,000 unit) capsule hydrochlorothiazide 25 mg tablet 25 mg PO DAILY 01/13/24 04/21/24 metoprolol succinate 100 mg 100 mg PO DAILY 01/13/24 04/21/24 tablet,extended release 24 hr Previous Rx's Medication Instructions Recorded nitroglycerin 0.4 mg sublingual 0.4 mg sublingual PRN PRN chest 02/27/21 tablet (Nitrostat) pain #100 tabs Disabled Parking #1 ea 01/05/22 betamethasone dipropionate 0.05 % 1 applic topical DAILY PRN rash 10/07/23 lotion #60 mL chlordiazepoxide HCl 25 mg capsule See Rx Instructions .Route 01/13/24 .COMPLEX #20 caps trazodone 50 mg tablet 50 mg PO BEDTIME #90 tabs 01/16/24 atorvastatin 20 mg tablet 20 mg PO DAILY #90 tabs 02/13/24 cefdinir 300 mg capsule 300 mg PO BID 10 days #20 caps 04/14/24 doxycycline hyclate 100 mg capsule 100 mg PO BID #20 caps 04/14/24 Allergies Allergy/AdvReac Type Severity Reaction Status Date / Time pregabalin [From Lyrica] AdvReac wooziness Verified 04/21/24 07:56 Review of Systems Review of Systems ROS Unobtainable: All systems reviewed & are unremarkable except as noted in HPI and below Patient History Medical History Alcohol dependence Hypersensitivity pneumonitis Fever (~2009) Mumps Measles Chicken pox GI bleed (~2014) Pacemaker (~2014) Presence of Watchman left atrial appendage closure device (~02/2020) Peripheral vascular disease Subdural hematoma (~02/2016) Mixed hyperlipidemia (02/12/11) Hypertension, essential (02/12/11) Vision disorder Peripheral neuropathy (~2011) Psoriasis (~1989) Hearing loss (~2014) Pacemaker (~2011) Atrial fibrillation (~2011) Skin cancer (~2012) Surgical History Anesthesia Surgical procedure planned (~2013) Status post insertion of iliac artery stent (~2012) History of heart artery stent (~2014) Status post rotator cuff repair (~2013) Status post rotator cuff repair (~2012) Presence of cardiac pacemaker (~2011) Family History Mother Esophageal cancer Father No problems noted. Brother COVID Grandfather Appendicitis Social History Smoking Status: Former smoker Smoking Status: Former smoker alcohol intake frequency: 0-2 drinks per day Substance Use Type: does not use Exam Initial Vital Signs Initial Vital Signs: Vital Signs Pulse Rate 120 H 04/22/24 18:26 Blood Pressure 134/80 04/22/24 18:26 Const General: cooperative and ill appearing [facility] Head: normal to inspection and normocephalic Resp Effort & Inspection: no cough, respiratory distress, no retractions and tachypneic Auscultation: rhonchi and no wheezes Cardio Rate: tachycardic Rhythm: abnormal rhythm GI Inspection: normal to inspection Skin General: no rashes or lesions noted Neuro General: patient alert, patient awake, patient oriented x3 and moves all extremities Extrem General: capillary refill normal and edema Scores GCS [place] coma scale eye opening: Spontaneous [place] coma scale verbal response: Orientated [place] coma scale motor response: Obey commands [place] coma scale total score: 15 Course Orders Ordered: ED Orders 04/22/24 18:20 Complete Blood Count AUTO DIFF Stat Comprehensive Metabolic Panel Stat Lipase Stat NT-proBNP (BNP-Adult 18+) Stat Troponin & CK Cardiac Panel Stat 04/22/24 18:37 XR chest 1V Stat EKG-12 Lead Stat RT Consult Eval and Treat Now 04/22/24 18:48 Covid-19 + FLU A/B + RSV - PCR Stat Discontinued Medications Furosemide 60 mg/ Sodium (Chloride) 56 mls @ 112 mls/hr IV NOW ONE Stop: 04/22/24 19:28 Last Infusion: 04/22/24 20:36 Dose: Infused Documented By: Admin: 04/22/24 19:49 Dose: 112 mls/hr Documented By: MGA Vital Signs Vital signs: Vital Signs - 8 hr 04/22/24 18:26 04/22/24 18:26 04/22/24 18:30 Temperature Pulse Rate 120 H Respiratory Rate Blood Pressure 134/80 128/82 Pulse Oximetry Oxygen Delivery Method Oxygen Flow Rate 04/22/24 18:30 04/22/24 18:37 04/22/24 19:00 Temperature 98.0 F Pulse Rate 132 H 130 H Respiratory Rate 27 H 22 Blood Pressure 134/80 122/76 Pulse Oximetry 83 L 87 L Oxygen Delivery Method Nasal Cannula Oxygen Flow Rate 7 04/22/24 19:00 04/22/24 19:30 04/22/24 19:30 Temperature Pulse Rate 119 H 115 H Respiratory Rate 26 H 44 H Blood Pressure 109/80 Pulse Oximetry 86 L 90 L Oxygen Delivery Method Oxygen Flow Rate 04/22/24 20:00 04/22/24 20:00 04/22/24 20:30 Temperature Pulse Rate 110 H 128 H Respiratory Rate 35 H 44 H Blood Pressure 115/67 Pulse Oximetry 89 L 90 L Oxygen Delivery Method Nasal Cannula Oxygen Flow Rate 5 04/22/24 20:30 04/22/24 20:35 04/22/24 20:35 Temperature Pulse Rate 86 123 H Respiratory Rate 18 27 H Blood Pressure 97/69 114/81 Pulse Oximetry 95 91 Oxygen Delivery Method Oxygen Flow Rate 04/22/24 21:00 04/22/24 21:00 04/22/24 21:30 Temperature Pulse Rate 92 H 89 Respiratory Rate 19 25 H Blood Pressure 82/62 L Pulse Oximetry 94 91 Oxygen Delivery Method Oxygen Flow Rate 04/22/24 21:31 04/22/24 21:31 04/22/24 22:00 Temperature Pulse Rate 92 H Respiratory Rate 22 Blood Pressure 109/57 L 97/69 Pulse Oximetry 91 Oxygen Delivery Method Oxygen Flow Rate 04/22/24 22:00 04/22/24 22:30 04/22/24 22:31 Temperature Pulse Rate 86 85 97 H Respiratory Rate 18 21 22 Blood Pressure Pulse Oximetry 95 93 94 Oxygen Delivery Method Heated High Flow Oxygen Flow Rate 50 04/22/24 22:31 04/22/24 23:00 04/22/24 23:00 Temperature Pulse Rate 86 Respiratory Rate 25 H Blood Pressure 100/62 105/72 Pulse Oximetry 87 L Oxygen Delivery Method Oxygen Flow Rate 04/22/24 23:10 04/22/24 23:30 04/22/24 23:30 Temperature Pulse Rate 86 81 Respiratory Rate 18 28 H Blood Pressure 97/69 116/72 Pulse Oximetry 95 93 Oxygen Delivery Method Oxygen Flow Rate 04/23/24 00:00 04/23/24 00:00 Temperature Pulse Rate 88 Respiratory Rate 28 H Blood Pressure 119/58 L Pulse Oximetry 84 L Oxygen Delivery Method Oxygen Flow Rate Medical Decision Making Medical Records Medical records reviewed: Yes I reviewed the patient's medical records. Lab Data Lab results reviewed: Yes I reviewed the patient's lab results. 04/22/24 18:20 04/22/24 18:20 Labs: Lab Results 04/22/24 04/22/24 Range/Units 18:20 18:48 WBC 10.4 (4.5-11.0) X10^3/uL RBC 4.52 (4.5-5.9) X10^6/uL Hgb 15.2 (13.5-17.5) g/dL Hct 46.5 (41-53) % MCV 102.7 H (80-100) fL MCH 33.7 (26-34) PG MCHC 32.8 (30-36) % RDW 15.8 H (11.6-14.8) % Plt Count 218 (150-400) X10^3/uL Neut % (Auto) 72.2 (50-75) % Lymph % (Auto) 14.7 L (25-40) % [place] % (Auto) 11.4 (3-14) % Eos % (Auto) 1.2 L (2-4) % Baso % (Auto) 0.5 (0-2) % Neut # (Auto) 7500 H (9863-4098) /uL Lymph # (Auto) 1500 (4307-5418) /uL [place] # (Auto) 1200 H (0-900) /uL Eos # (Auto) 100 (0-450) /uL Baso # (Auto) 100 (0-100) /uL Sodium 133 L (137-145) mmol/L Potassium 4.3 (3.4-5.1) mmol/L Chloride 93 L (98-107) mmol/L Carbon Dioxide 30 (22-32) mmol/L BUN 11 (9-20) mg/dL Creatinine 1.13 (0.66-1.25) mg/dL Estimated GFR > 60 (>60) mL/min BUN/Creatinine Ratio 9.7 (6-22) Glucose 122 H (80-110) mg/dL Calcium 9.5 (8.4-10.2) mg/dL Total Bilirubin 1.0 (0.2-1.3) mg/dL AST 50 (17-59) IU/L ALT 26 (<50) IU/L Alkaline Phosphatase 197 H (38-126) U/L Total Creatine Kinase 26 L (55-170) U/L Troponin I < 0.012 (0.01-0.034) ng/mL NT-Pro-B Natriuret Pep 46136 H (<450) pg/mL Total Protein 6.8 (6.3-8.2) g/dL Albumin 3.6 (3.5-5.0) g/dL Globulin 3.2 (1.7-4.1) g/dL Albumin/Globulin Ratio 1.1 (1.0-2.8) Lipase 46 (23-300) U/L SARS-CoV-2 (PCR) Positive H (Negative) Influenza A (RT-PCR) Flu a negative (NEGATIVE) Influenza B (RT-PCR) Flu b negative (NEGATIVE) RSV (PCR) Negative (Negative) Imaging Data Chest x-ray: Radiologist's Impression: PROCEDURE: XR CHEST 1V INDICATIONS: SOB TECHNIQUE: One view of the chest was acquired. COMPARISON: [facility], CT, CT HIGH RESOLUTION CHEST, 03/24/2024, 16:49. [facility], CR, XR CHEST 1V, 04/14/2024, 11:47. FINDINGS: Surgical changes and devices: Cardiac pacemaker is seen with pulse generator in the left chest. Lungs and pleura: Low lung volumes are seen bilaterally with diffuse interstitial prominence. No focal consolidative opacity No pleural effusion or pneumothorax. Mediastinum: Mediastinal contours appear normal. Heart size is normal. Bones and chest wall: No suspicious bony lesions. Overlying soft tissues appear unremarkable. IMPRESSION: Bilateral low lung volumes and interstitial prominence are consistent with chronic interstitial lung disease as previously seen. No acute consolidation. Echocardiogram: Radiologist's Impression: [facility] +---------+ Hospital : : [address] [place] [address] : : [place], [place] : : [id number] : : Phone: [phone] Echocardiogram Report + + :Name: ROBERTA BROWN Study Date: 02/28/2024 Height: 70 in : :[facility] ReadingLocation: Weight: 190 lb : : Gender: Male BSA: 2.0 m2 : :: 1945 Age: 79 yrs BP: 108/68 mmHg: :Reason For Study: SHORTNESS OF BREATH : :Ordering Physician: BERTIN, : :CIARAN Performed By: Sheila Figueroa : :Referring: CIARAN DENTON : + + Interpretation Summary The left ventricle is normal in size. The ejection fraction is estimated to be 55-60%. No significant change in LVEF from the previous study. The right ventricle is grossly normal size. Right ventricular systolic function is at the lower limits of normal. There is a pacemaker lead in the right ventricle. Aortic valve moderate to heavily calcified. The aortic valve is not well visualized. The peak aortic velocity is 2.9 m/sec. The aortic valve mean gradient is 22 mmHg. Stroke-volume index 22.17 mL/mA? The peak aortic velocity on the previous exam was 1.97 m/sec. sev ratio: 0.26 The calculated aortic valve area is 0.91 cm2. Low-flow low gradient moderate to severe aortic stenosis. Compared to the prior echo study, there has been an increase in the severity of aortic stenosis. There is mild tricuspid regurgitation. Right ventricular systolic pressure is estimated to be 54 mmHg plus the clinically estimated CVP which cannot be estimated on this exam. Procedure: A two-dimensional transthoracic echocardiogram with color flow and Doppler was performed. The study quality was technically adequate. Comparison is made with the echocardiogram of 03/02/2022. The patient was in atrial fibrillation with heart rates between 72-95 bpm during the exam. Intermittent ventricular paced rhythm. Left Ventricle: The left ventricle is normal in size. Proximal septal thickening is noted. There is no thrombus. The ejection fraction is estimated to be 55-60%. There are no focal wall motion abnormalities. Diastolic function could not be accurately assessed due to atrial fibrillation. Right Ventricle: There is a pacemaker lead in the right ventricle. The right ventricle is grossly normal size. Right ventricular systolic function is at the lower limits of normal. Atria: The left atrium is severely dilated. There has been no significant change since the previous study. The right atrium is mildly dilated. There is no Doppler evidence for an interatrial shunt. Mitral Valve: There is a flat closure plane of the the mitral valve leaflets. There is mild to moderate mitral annular calcification. The mitral valve leaflets are mildly calcified. There is trace mitral regurgitation. Aortic Valve: The aortic valve is not well visualized. Aortic valve moderate to heavily calcified. There is moderate aortic stenosis. The peak aortic velocity is 2.9 m/sec. The aortic valve mean gradient is 22 mmHg. The calculated aortic valve area is 0.91 cm2. The peak aortic velocity on the previous exam was 1.97 m/sec. Compared to the prior echo study, there has been an increase in the severity of aortic stenosis. Tricuspid Valve: The tricuspid valve is normal. There is mild tricuspid regurgitation. Right ventricular systolic pressure is estimated to be 54 mmHg plus the clinically estimated CVP which cannot be estimated on this exam. Pulmonic Valve: The pulmonic valve is not well visualized. There is no pulmonic valvular regurgitation. Great Vessels: The aortic root is normal size. The dimensions of the ascending aorta are normal. The inferior vena cava was not well visualized. Pericardium/ Pleura There is no pericardial effusion. There is an anterior echo-free space consistent with a fat pad. There is no pleural effusion. MMode/2D Measurements & Calculations LVIDd: 5.3 cm LVOT diam: 2.2 cm LVIDs: 3.7 cm Ao root diam: 2.9 cm FS: 29.8 % asc Aorta Diam: 3.8 cm EPSS: 0.66 cm Ao Arch Diam (Prox Trans): 2.9 cm IVSd: 1.0 cm LVPWd: 1.3 cm LV campuzano. diameter/BSA (cm/m^2): 2.6 LV sys. diameter/BSA (cm/m^2): 1.8 LA A2 area: 23.5 cm2 RA long axis: 6.6 cm LA A4 area: 23.2 cm2 RA area: 24.1 cm2 LA length (vol): 6.4 cm RA vol: 75.3 ml LA vol: 72.3 ml RA : 36.9 ml/m2 LA vol index: 35.4 ml/m2 RVD1 (basal): 3.7 cm RVD2 (mid): 3.4 cm TAPSE: 1.8 cm Doppler Measurements & Calculations Ao V2 max: 293.2 cm/sec LVOT Max Faisal: 70.9 cm/sec Ao V2 mean: 205.3 cm/sec LV V1 max P.0 mmHg Ao max P.8 mmHg LV V1 VTI: 13.0 cm Ao mean P.9 mmHg JAZZY(I,D): 0.98 cm2 Ao V2 VTI: 50.2 cm JAZZY(V,D): 0.91 cm2 sev ratio: 0.26 JAZZY indexed to BSA (cm^2/m^2): 0.48 MV E max faisal: 95.6 cm/sec TR max faisal: 369.3 cm/sec MV A max faisal: 1.2 cm/sec TR max P.6 mmHg MV E/A: 78.5 PA pr(Accel): 51.6 mmHg Med Peak E' Faisal: 5.8 cm/sec E/E' med: 16.6 Lat Peak E' Faisal: 7.6 cm/sec E/E' lat: 12.5 E/e' average: 14.6 MV dec time: 0.17 sec SV(LVOT): 49.0 ml Reading Physician:03:28 PM ECG Data Attestation: I personally reviewed and interpreted this ECG as follows: Interpretation: Atrial fibrillation Ventricular rate [address] T wave changes MDM Narrative Medical decision making narrative: The echocardiogram included than this note is for reference purposes only. He was not performed during this emergency department visit. It showed a relatively normal ejection fraction however does report a low-flow aortic stenosis and aortic calcifications. Patient is hypoxic on room air. Upon arrival he was able to maintain oxygen saturations in the low 90s just on nasal cannula however during his stay here he became more dyspneic. He was subsequently transitioned to high-flow nasal cannula and seems to be tolerating this very well. His respiratory rate is now more in the 20s rather than the 40s. He does have persistent AFib in his in AFib upon arrival. His rate improved with his respiratory support. He was not on anticoagulation but does have the watchman in place. Has a BNP that is about double from what it was when he was here bowel 1 week ago. Was given 60 mg of Lasix IV. He did diurese. Patient was not been particularly hypertensive with a systolic blood pressures in the 120s to 130s. He is COVID positive. No other signs of overt bacterial pneumonia. No antibiotics were administered. Unsure whether or not his clinical presentation today is overt heart failure versus COVID pneumonia verses worsening aortic stenosis. Potential that it is a combination of all 3 of these. Patient was scheduled to see Cardiothoracic surgery at [facility] to discuss aortic valve replacement however he does not have an appointment scheduled as this was just recently discussed with his local cleaning staff supervisor. I do feel patient would benefit from transfer to higher level of care. I did discuss the case with er nurse at [facility] who accepts the patient for transfer. Patient is stable for transport. Critical Care Time Critical Care Time Critical Care Time: Yes Total Critical Care Time: 45 Attestation: The high probability of a clinically significant, sudden or life threatening deterioration of the [cardiovascular, respiratory] system(s) required my full and direct attention, intervention and personal management. The aggregate critical care time was [45] minutes. This time is in addition to time spent performing reported procedures but includes the following: [x] Data Review and interpretation [x] Patient assessment and monitoring of vital signs [x] Documentation [x] Medication orders and management Discharge Plan Departure Patient Disposition: [facility] Clinical Impression: Acute respiratory distress, Hypoxia, CHF (congestive heart failure), Aortic stenosis, COVID-19 Prescriptions: No Action betamethasone dipropionate 0.05 % lotion 1 applic topical DAILY PRN (Reason: rash) Qty: 60 5RF trazodone 50 mg tablet 50 mg PO BEDTIME Qty: 90 3RF atorvastatin 20 mg tablet 20 mg PO DAILY Qty: 90 3RF nitroglycerin [Nitrostat] 0.4 mg tablet, sublingual 0.4 mg Sublingual PRN PRN (Reason: chest pain) Qty: 100 5RF (DME) Disabled Parking See Rx Instructions .ROUTE .MEDSUPPLY Qty: 1 0RF Rx Instructions: Patient qualifies for disabled parking as per the attached form. metoprolol succinate 100 mg tablet extended release 24 hr 100 mg PO DAILY hydrochlorothiazide 25 mg tablet 25 mg PO DAILY Vitamin B12 2,000 mg 1 tab PO DAILY cholecalciferol (vitamin D3) 50 mcg (2,000 unit) capsule 50 mcg PO DAILY chlordiazepoxide HCl 25 mg capsule See Rx Instructions .ROUTE .COMPLEX Qty: 20 0RF Rx Instructions: take one twice a day for 5 days, then one once a day for 5 days, then one every other day for 4 doses (8 days), then stop aspirin 81 mg tablet,delayed release (DR/EC) 81 mg PO DAILY cefdinir 300 mg capsule 300 mg PO BID 10 Days Qty: 20 0RF doxycycline hyclate 100 mg capsule 100 mg PO BID Qty: 20 0RF Referrals: Aldo Sutton MD [Primary Care Provider] -
[2024-04-22 19:06] LABS: NT-proBNP (BNP-Adult 18+) 11500 pg/mL (<450); Troponin I < 0.012 ng/mL (0.01-0.034)
[2024-04-22 19:32] LABS: Influenza A - CEPHEID Flu A NEGATIVE (NEGATIVE); Influenza B - CEPHEID Flu B NEGATIVE (NEGATIVE); Respiratory Syncytial Virus Negative (Negative)
[2024-04-22 19:40] LABS: COVID-19 CEPHEID 4-PLEX PCR POSITIVE (Negative)
[2024-04-22] MEDS: FUROSEMIDE 60 MG in SODIUM CHLORIDE 0.9% 50 ML 112 MG IV (19:49)
--- NOTE | 2024-04-22 20:08 | PC.NURSE ---
patient sat up to urinate. His 02 sat fell to the low 80s. RT was notified. The patient was encouraged to lay back in bed and take some deep breathes. His oxygenation improved to the upper 80s%
--- NOTE | 2024-04-22 23:15 | EKG_ITS ---
[facility] [address] [place] [address] Test Date: 2024-04-22 Pat Name: Mateusz Kohli Department: [facility] Room: Gender: Male Night Order Selector: BELEM Comer : 1945 Requested By: Order Number: [id number] Reading MD: Cameron Lu Measurements Intervals [place] Rate: 95 P: ND: QRS: -21 QRSD: 106 T: -39 QT: 370 QTc: 464 Interpretive Statements Atrial fibrillation Minimal voltage criteria for LVH, may be normal variant ( [place] product ) Nonspecific ST and T wave abnormality Electronically Signed On 04-27-2024 15:20:46 PDT by Cameron Lu
[2024-04-23] VITALS: BP 119/58; PULSE 88; RESP 28; O2SAT 84
== END 2024-04-23 00:31 | disposition short-term general hospital (02) ==
PROVIDERS: Emergency Provider Emergency Medicine; Family Provider Internal Medicine; PCP Internal Medicine
DX: R06.03 Acute respiratory distress (principal); U07.1 COVID-19; I35.0 Nonrheumatic aortic (valve) stenosis; I50.9 Heart failure, unspecified; R09.02 Hypoxemia; R60.0 Localized edema; I48.91 Unspecified atrial fibrillation
CPT/HCPCS: 0241U; 71045; 80053; 82550; 83690; 83880; 84484; 85025; 93005; 96365; 99285; 99291; J1940